=== PATIENT | female | born 1965 | race Caucasian/White ===

== ENCOUNTER 2023-09-18 08:29 | Outpatient (CLI) | payer OTHER, SELFPAY | END 2023-09-18 08:30 | disposition home or self-care (01) | LOC: ANHAUDASC 08:30 | PROVIDERS: PCP Family Medicine; Visit Provider Otolaryngology | DX: H90.3 Sensorineural hearing loss, bilateral (principal) | CPT/HCPCS: 92557; 92567 ==

== ENCOUNTER 2023-10-08 10:58 | Inpatient (IN) | payer OTHER, SELFPAY ==
[2023-10-08] VITALS (21 sets, daily range): BP systolic 129–171; BP diastolic 70–113; PULSE 90–142; RESP 14–28; TEMP 36.2–37.3; O2SAT 90–100
--- NOTE | ~2023-10-08 | XR_ITS ---
Portable chest x-ray Comparison: 10/08/2023 Clinical History: Shortness of breath Findings: There is patchy left basilar consolidation, with more hazy airspace disease at the left carol ng base. Cardiomediastinal silhouette is stable. Bones and soft tissues are unremarkable. Impression: Bibasilar airspace disease, left worse than right. Correlate for bibasilar pulmonary edema/atelectasi s versus pneumonia. Reviewed, dictated and finalized at location . Impression: Bibasilar airspace disease, left worse than right. Correlate for bibasilar pulm onary edema/atelectasis versus pneumonia.
--- NOTE | ~2023-10-08 | CT_ITS ---
EXAMINATION: CTA chest PE protocol DATE: 10/08/2023 22:30 INDICATION: Shortness of breath. Tachycardia. TECHNIQUE: Computed tomography angiography (CTA) of the chest was performed with 100 mL Omnipaque-350 intravenous contrast timed to evaluate the pulmonary arteries. Coronal maximum intensity projection 3D-reconstructions were created by the technologist. Automated exposure control and iterative reconst ruction technique were employed. The dose-length product was 882.47 mGy-cm. COMPARISON: None. FINDINGS: There are groundglass opacities and crazy paving involving all lobes. A calcified right chip g nodule is consistent with old granulomatous disease. No pleural effusion. The heart size is normal. There are coronary artery calcifications. No pericardial effusion. There is no pulmonary embolus. Th e liver demonstrates surface nodularity, consistent with cirrhosis. There are gallstones in the gallb ladder. There is severe thoracic spondylosis. There is a burst fracture of T12 with 2/5 loss of heigh t and retropulsion of bone 3 mm into central spinal canal. IMPRESSION: 1. No pulmonary embolus. Sensitivity is moderately decreased by motion artifact. 2. Diffuse lung disease, consistent with pulmonary edema versus atypical pneumonia. 3. Cirrhosis of the liver. 4. T12 burst fracture, likely subacute or chronic. Reviewed, dictated and finalized at location E. IMPRESSION: 1. No pulmonary embolus. Sensitivity is moderately decreased by motion artifact . 2. Diffuse lung disease, consistent with pulmonary edema versus atypical pneumo refugio. 3. Cirrhosis of the liver. 4. T12 burst fracture, likely subacute or chronic.
--- NOTE | ~2023-10-08 | XR_ITS ---
XR chest 2V Ordering provider: Sushma Ricardo MD History: 57 years Female with . sob . Comparison: None. FINDINGS: MEDIASTINUM: The cardiac silhouette is not enlarged. Congestive orlin. LUNGS: No effusion or pneumothorax. Bibasilar opacification is seen suggestive of pneumonia more on t he left side. Interstitial thickening is seen in the perihilar areas suggestive of edema. Pneumonitis also is possible. OTHER: No free air under the diaphragm. Degenerative changes of the spine. IMPRESSION: Bibasilar pneumonia more on the left side. Bilateral interstitial thickening suggestive of pneumoniti s versus pulmonary edema. Reviewed, dictated and finalized at location A. IMPRESSION: Bibasilar pneumonia more on the left side. Bilateral interstitial thickening moreno ggestive of pneumonitis versus pulmonary edema.
--- NOTE | ~2023-10-08 | CT_ITS ---
CT brain wo con Ordering provider: Sushma Ricardo MD History: 57 years Female with . severe CALLES, nausea/vomiting . Comparison: None. Technique: CT of the head without contrast. Radiation reduction technique utilized. DLP is 1210.67 mGy-cm. FINDINGS: BRAIN PARENCHYMA AND CSF SPACES: Mild leukoaraiosis and diffuse cortical atrophy. Mild atheromatous d isease. No midline shift, mass effect or hemorrhage. The brain parenchyma and CSF spaces are otherwi se normal. VISUALIZED PARANASAL SINUSES: Well aerated. MASTOIDS: Well aerated. BONES: The bones appear intact. SOFT TISSUES: Visualized nasopharynx is normal. Superficial soft tissues are normal. IMPRESSION: No acute intracranial findings. Reviewed, dictated and finalized at location A.
--- NOTE | 2023-10-08 12:25 | ECG_ITS ---
Test Date: 2023-10-08 12:35:55 Measurements Intervals [place] Rate: 122 P: 0 TN: 0 QRS: -81 QRSD: 81 T: 55 QT: 305 QTc: 435 Interpretive Statements SINUS TACHYCARDIA LOW QRS VOLTAGE IN PRECORDIAL LEADS POSSIBLE RIGHT VENTRICULAR CONDUCTION DELAY INFERIOR MYOCARDIAL INFARCTION , PROBABLY OLD ANTEROLATERAL MYOCARDIAL INFARCTION , PROBABLY OLD ABNORMAL ECG No previous ECG available for comparison Electronically Signed On 10-08-2023 12:59:01 CDT by Gerber Frey D.O.
--- NOTE | 2023-10-08 12:42 | ED.SOB ---
HPI - SOB/Dyspnea General Chief Complaint: Shortness of Breath/Dyspnea Stated Complaint: sob Time Seen by Provider: 10/08/23 12:25 History of Present Illness HPI Narrative: Patient is a 57-year-old female with a history of COPD, diabetes, hypertension, hyperlipidemia, hypothyroidism presenting with shortness of breath. Patient states that she has been increasingly short of breath over the last few days. States that she has been using her inhaler with minimal relief. States that today she has been feeling like she just can not catch her breath. Denies chest pain but states that her chest feels tight. Also complains of a severe headache for the last several days. States that it has been gradually worsening. States she has a history of headaches and migraines. Also complains of a sore throat. No difficulty swallowing. No fevers, numbness or weakness, vision changes, speech changes, abdominal pain, leg swelling. Complains of nausea with vomiting. Related Data Home Medications Medication Instructions Recorded Confirmed acetaminophen 325 mg tablet 325 mg PO DAILY 10/08/23 10/08/23 albuterol sulfate 2.5 mg/3 mL 2.5 mg inhalation TID PRN sob 10/08/23 10/08/23 (0.083 %) solution for nebulization albuterol sulfate 90 mcg/actuation 2 puff inhalation Q4H PRN sob 10/08/23 10/08/23 aerosol inhaler atorvastatin 40 mg tablet 40 mg PO DAILY 10/08/23 10/08/23 baclofen 10 mg tablet 10 mg PO BID 10/08/23 10/08/23 bupropion HCl 150 mg tablet,12 hr 150 mg PO DAILY 10/08/23 10/08/23 sustained-release buspirone 7.5 mg tablet 7.5 mg PO BID 10/08/23 10/08/23 capsaicin 0.075 % topical cream 1 applic topical TID 10/08/23 10/08/23 (Arthritis Pain Relief (capsaicin)) celecoxib 200 mg capsule 200 mg PO BID PRN Pain 10/08/23 10/08/23 cetirizine 10 mg tablet (Allergy 10 mg PO DAILY 10/08/23 10/08/23 Relief (cetirizine)) ergocalciferol (vitamin D2) 1,250 1,250 mcg PO DAILY 10/08/23 10/08/23 mcg (50,000 unit) capsule (Vitamin D2) famotidine 20 mg tablet 20 mg PO DAILY 10/08/23 10/08/23 fluticasone 250 mcg-salmeterol 50 1 inh inhalation BID 10/08/23 10/08/23 mcg/dose blistr powdr for inhalation (Advair Diskus) fluticasone propionate 50 50 mcg intranasal DAILY 10/08/23 10/08/23 mcg/actuation nasal spray,suspension folic acid 1 mg tablet 1 mg PO DAILY 10/08/23 10/08/23 hydralazine 10 mg tablet 10 mg PO BID 10/08/23 10/08/23 levothyroxine 100 mcg tablet 100 mcg PO DAILY 10/08/23 10/08/23 lisinopril 20 mg tablet 20 mg PO HS 10/08/23 10/08/23 meclizine 25 mg tablet 25 mg PO TID 10/08/23 10/08/23 metformin 500 mg tablet 500 mg PO DAILY 10/08/23 10/08/23 montelukast 10 mg tablet 10 mg PO DAILY 10/08/23 10/08/23 ondansetron 4 mg disintegrating 4 mg PO Q6H PRN Nausea 10/08/23 10/08/23 tablet pantoprazole 40 mg tablet,delayed 40 mg PO DAILY 10/08/23 10/08/23 release paroxetine HCl 40 mg tablet 40 mg PO DAILY 10/08/23 10/08/23 rifaximin 550 mg tablet (Xifaxan) 550 mg PO Q12H 10/08/23 10/08/23 spironolactone 25 mg tablet 50 mg PO DAILY 10/08/23 10/08/23 sucralfate 1 gram tablet 1 g PO BID 10/08/23 10/08/23 tamsulosin 0.4 mg capsule 0.4 mg PO HS 10/08/23 10/08/23 tiotropium bromide 18 mcg capsule 1 cap inhalation DAILY 10/08/23 10/08/23 with inhalation device (Spiriva with HandiHaler) triamcinolone acetonide 0.5 % 1 applic topical BID PRN Rash 10/08/23 10/08/23 topical cream Allergies Allergy/AdvReac Type Severity Reaction Status Date / Time Sulfa (Sulfonamide AdvReac Mild NAUSEA AND Verified 10/08/23 17:55 Antibiotics) VOMITING Review of Systems Review of Systems: All systems reviewed & are unremarkable except as noted in HPI and below PMFSH Past Medical History Medical History Allergies COPD (chronic obstructive pulmonary disease) Current smoker Diabetes GERD (gastroesophageal reflux disease) Hypothyroidism Social History Social History Smoking packs per day: 1 Smoking cigarettes per day: 20.0 Years smoked: 47 Smoking pack-years: 47.00 Smoking status: Current every day smoker Tobacco type: cigarettes and e-cigarettes/vaping Alcohol intake: former Substance use: former Substance use type: marijuana and crack/cocaine Other substance usage details: 2010 was last use of alcohol (previous 30pk per day), last drug use 2010 Do You Feel Safe in your Home?: Yes Lack of Transportation: YES Lack of Food: Never True Current Housing: I Have Housing Concerned About Future Housing: No Difficulty Paying Gas/Electric Bills: No Difficulty Paying for Meds: No Currently Unemployed: No Education: Don't Know Difficulty w/ Childcare or Family Care: No Spiritual care concerns: No Exam Narrative: GENERAL: Uncomfortable appearing, intermittently dry heaving, pleasant and cooperative HEAD: Normocephalic, atraumatic. EYES: PERRLA and EOMI. ENT: Mucous membranes moist. NECK: Supple. CHEST: Diffuse expiratory wheezing, on 4 L nasal cannula HEART: Regular rate and rhythm ABDOMEN: Soft, nontender, nondistended EXTREMITIES: Normal range of motion. No edema. SKIN: Warm, dry, no rash. NEURO: No focal deficits. Alert and oriented x3. PSYCH: Normal mood and affect. Course Vital Signs Vital signs: Vital Signs Temperature 97.1 F L 10/08/23 11:04 Pulse Rate 90 10/08/23 11:04 Respiratory Rate 22 H 10/08/23 11:04 Blood Pressure 153/77 H 10/08/23 11:04 Pulse Oximetry 92 10/08/23 11:04 Oxygen Delivery Nasal Cannula 10/08/23 11:04 Oxygen Flow Rate 4 10/08/23 11:04 Temperature 98.6 F 10/08/23 20:53 Pulse Rate 113 H 10/08/23 20:53 Respiratory Rate 20 10/08/23 20:53 Blood Pressure 141/86 H 10/08/23 20:53 Pulse Oximetry 94 10/08/23 20:53 Oxygen Delivery Autopap 10/08/23 21:12 Oxygen Flow Rate 4 10/08/23 20:04 Fraction of Inspired Oxygen 36 10/08/23 14:36 MDM - SOB/Dyspnea MDM Narrative Medical decision making narrative: 57-year-old female presenting with shortness of breath, nausea, headache. Patient is hypoxic on room air, she was placed on 4 L nasal cannula with improvements to the mid 90s. She is wheezing diffusely. White count of 20. Ceftriaxone, azithromycin ordered for presumed pneumonia. Solu-Medrol, breathing treatments ordered as well. EKG per my interpretation shows sinus tachycardia, no ST elevations or depressions. Head CT without acute abnormalities. Migraine cocktail ordered for her headache. Chest x-ray with bibasilar pneumonia. Patient would benefit from admission for IV antibiotics, oxygen supplementation, further management. She is agreeable with this plan. I spoke with the hospitalist was accepted her for admission Differential Diagnosis Differential diagnosis: Likely acute exacerbation of chronic obstructive airways disease, congestive heart failure and community acquired pneumonia Medical Records Attestation: I reviewed the patient's medical records. Lab Data Attestation: I reviewed the patient's lab results. 10/08/23 12:40 10/08/23 12:40 Labs: Lab Results 10/08/23 10/08/23 10/08/23 Range/Units 12:40 12:42 13:50 WBC 20.2 H (4.5-10.0) K/mm3 RBC 4.46 (4.2-5.4) M/mm3 Hgb 13.7 (12.0-15.0) g/dL Hct 39.9 (37.0-47.0) % MCV 89.5 (80-100) fl MCH 30.7 (26-34) pg MCHC 34.3 (32-36) g/dl RDW 12.5 (11.5-14.5) % Plt Count 226 (150-375) k/mm3 MPV 11.4 H (7.4-10.4) fl Immature Gran % (Auto) 0.7 H (0-0.5) % Neut % (Auto) 89.8 H (45.5-73.1) % Lymph % (Auto) 3.9 L (18.3-44.2) % [place] % (Auto) 4.3 (2.6-8.5) % Eos % (Auto) 1.0 (0-4.4) % Baso % (Auto) 0.3 (0.2-1.2) % Lymph # (Auto) 0.79 L (0.9-3.2) K/mm3 [place] # (Auto) 0.9 H (0.1-0.6) K/mm3 Eos # (Auto) 0.2 (0-0.3) K/mm3 Baso # (Auto) 0.1 (0.0-0.1) K/mm3 Abs Immat Gran (auto) 0.14 H (0.00-0.031) K/mm3 Absolute Neuts (auto) 18.2 H (1.3-6.7) K/mm3 Absolute Nucleated RBC 0.000 (0.0-0.012) K/mm3 Nucleated RBC % 0.0 (0.0-0.2) % PT 15.3 H (11.1-14.7) Seconds INR 1.2 APTT 36.0 (22.3-36.8) Seconds Methemoglobin (0-1.5) %THb Sodium 126 L (137-145) mmol/L Potassium 4.8 (3.4-5.0) mmol/L Chloride 93 L (98-107) mmol/L Carbon Dioxide 22 (22-30) mmol/L Anion Gap 11 (4-12) mmol/L BUN 8 (7-17) mg/dL Creatinine 0.90 (0.7-1.0) mg/dL Estim Creat Clear Calc 59 ml/min Estimated GFR > 60 (59 - ) Glucose 103 (65-110) mg/dL Calcium 8.9 (8.4-10.2) mg/dL Magnesium 1.5 L (1.6-2.3) mg/dL Total Bilirubin 1.3 (0.2-1.3) mg/dL AST 39 H (14-36) U/L ALT 21 (6-35) U/L Alkaline Phosphatase 238 H (38-126) U/L Troponin I < 0.012 (0.000-0.034) ng/mL NT-Pro-B Natriuret Pep 113 H (19.9-100) pg/mL Total Protein 8.0 (6.3-8.2) g/dL Albumin 4.5 (3.5-5.1) g/dL Lipase 79 (23-300) U/L Urine Color Yellow (Yellow) Urine Appearance Clear (Clear) Urine pH 6.5 (5.0-9.0) Ur Specific [place] 1.004 (1.001-1.035) Urine Protein Negative (Negative) mg/dL Urine Glucose (UA) Negative (Negative) mg/dL Urine Ketones Negative (Negative) mg/dL Ur Blood (Man) Negative (Negative) Urine Nitrate Negative (Negative) Urine Bilirubin Negative (Negative) Urine Urobilinogen 1.0 (<2.0) mg/dL Leukocyte Esterase Rfl Trace H (Negative) LUIS M/UL Urine RBC 0-2 (0-2) /hpf Urine WBC 0-5 (0-3) /hpf Ur Squamous Epith Cells None seen (Few) /hpf Urine Bacteria None seen /hpf Urine Casts 0-2 Influenza A (RT-PCR) Negative (Negative) Influenza B (RT-PCR) Negative (Negative) RSV (RT-PCR) Negative (Negative) SARS-CoV-2 RNA (RT-PCR) Negative (Negative) 10/08/23 10/08/23 Range/Units 14:30 14:51 WBC (4.5-10.0) K/mm3 RBC (4.2-5.4) M/mm3 Hgb (12.0-15.0) g/dL Hct (37.0-47.0) % MCV (80-100) fl MCH (26-34) pg MCHC (32-36) g/dl RDW (11.5-14.5) % Plt Count (150-375) k/mm3 MPV (7.4-10.4) fl Immature Gran % (Auto) (0-0.5) % Neut % (Auto) (45.5-73.1) % Lymph % (Auto) (18.3-44.2) % [place] % (Auto) (2.6-8.5) % Eos % (Auto) (0-4.4) % Baso % (Auto) (0.2-1.2) % Lymph # (Auto) (0.9-3.2) K/mm3 [place] # (Auto) (0.1-0.6) K/mm3 Eos # (Auto) (0-0.3) K/mm3 Baso # (Auto) (0.0-0.1) K/mm3 Abs Immat Gran (auto) (0.00-0.031) K/mm3 Absolute Neuts (auto) (1.3-6.7) K/mm3 Absolute Nucleated RBC (0.0-0.012) K/mm3 Nucleated RBC % (0.0-0.2) % PT (11.1-14.7) Seconds INR APTT (22.3-36.8) Seconds Methemoglobin 0.2 (0-1.5) %THb Sodium (137-145) mmol/L Potassium (3.4-5.0) mmol/L Chloride (98-107) mmol/L Carbon Dioxide (22-30) mmol/L Anion Gap (4-12) mmol/L BUN (7-17) mg/dL Creatinine (0.7-1.0) mg/dL Estim Creat Clear Calc ml/min Estimated GFR (59 - ) Glucose (65-110) mg/dL Calcium (8.4-10.2) mg/dL Magnesium (1.6-2.3) mg/dL Total Bilirubin (0.2-1.3) mg/dL AST (14-36) U/L ALT (6-35) U/L Alkaline Phosphatase (38-126) U/L Troponin I < 0.012 (0.000-0.034) ng/mL NT-Pro-B Natriuret Pep (19.9-100) pg/mL Total Protein (6.3-8.2) g/dL Albumin (3.5-5.1) g/dL Lipase (23-300) U/L Urine Color (Yellow) Urine Appearance (Clear) Urine pH (5.0-9.0) Ur Specific [place] (1.001-1.035) Urine Protein (Negative) mg/dL Urine Glucose (UA) (Negative) mg/dL Urine Ketones (Negative) mg/dL Ur Blood (Man) (Negative) Urine Nitrate (Negative) Urine Bilirubin (Negative) Urine Urobilinogen (<2.0) mg/dL Leukocyte Esterase Rfl (Negative) LUIS M/UL Urine RBC (0-2) /hpf Urine WBC (0-3) /hpf Ur Squamous Epith Cells (Few) /hpf Urine Bacteria /hpf Urine Casts Influenza A (RT-PCR) (Negative) Influenza B (RT-PCR) (Negative) RSV (RT-PCR) (Negative) SARS-CoV-2 RNA (RT-PCR) (Negative) ABG Data ABG results: 10/08/23 14:51 Puncture Site Left radial ABG pH 7.412 ABG pCO2 33.2 L ABG pO2 80.9 ABG PO2/FiO2 Ratio 1.39 ABG HCO3 20.7 L ABG O2 Saturation 96.2 ABG O2 Content 18.5 ABG Base Excess -3.1 A-a Gradient 296.0 Oxyhemoglobin 94.6 Carboxyhemoglobin 1.5 Reduced Hemoglobin 3.7 Total Hemoglobin 13.9 O2 Delivery Device Other device O2 Liters/Min 8.0 FiO2 58 Imaging Data Radiologist's impression: ITS Impressions Head CT 10/08/23 14:08 IMPRESSION: No acute intracranial findings. Chest X-Ray 10/08/23 14:14 IMPRESSION: Bibasilar pneumonia more on the left side. Bilateral interstitial thickening suggestive of pneumonitis versus pulmonary edema. Critical Care Time Critical Care Time Critical Care Time: Yes Total Critical Care Time: 35 Discharge Plan Discharge Clinical Impression: Bilateral pneumonia, COPD (chronic obstructive pulmonary disease), Migraine Patient Disposition: Still a Patient Condition: Serious
[2023-10-08] MEDS: ALBUTEROL SULFATE NEB 2.5 MG/3 ML INH 10 MG INHALATION (12:43)
[2023-10-08] MEDS: IPRATROPIUM BR 0.02% INH SOLN 0.5 MG/2.5 ML VIAL INHALATION ×2 (12:44→14:36)
[2023-10-08] MEDS: SODIUM CHLORIDE 0.9% IV 1,000 ML 999 ML IV CONT ×2 (12:49→15:30)
[2023-10-08] MEDS: methylPREDNISolone SOD SUCC 125 MG VIAL IV PUSH (12:50)
[2023-10-08] MEDS: PROCHLORPERAZINE EDISYLATE 10 MG/2 ML VIAL IV PUSH (12:50)
[2023-10-08] MEDS: diphenhydrAMINE HCl INJ 50 MG/ML VIAL 25 MG IV PUSH (12:50)
[2023-10-08 12:53] LABS: Basophils Absolute Auto 0.1 K/mm3 (0.0-0.1); Basophils Percent Auto 0.3 % (0.2-1.2); Eosinophils Absolute Auto 0.2 K/mm3 (0-0.3); Hematocrit 39.9 % (37.0-47.0); Hemoglobin 13.7 g/dL (12.0-15.0); Immature Granulocyte Absolute 0.14 K/mm3 (0.00-0.031); Immature Granulocyte Percent A 0.7 % (0-0.5); Lymphocytes Absolute Auto 0.79 K/mm3 (0.9-3.2); Lymphocytes Percent Auto 3.9 % (18.3-44.2); Mean Corpuscular HGB Conc 34.3 g/dl (32-36); Mean Corpuscular Hemoglobin 30.7 pg (26-34); Mean Corpuscular Volume 89.5 fl (80-100); Mean Platelet Volume 11.4 fl (7.4-10.4); Monocytes Absolute Auto 0.9 K/mm3 (0.1-0.6); Monocytes Percent Auto 4.3 % (2.6-8.5); Neutrophils Absolute Auto 18.2 K/mm3 (1.3-6.7); Neutrophils Percent Auto 89.8 % (45.5-73.1); Platelet Count Result 226 k/mm3 (150-375); Red Blood Count 4.46 M/mm3 (4.2-5.4); Red Cell Distribution Width 12.5 % (11.5-14.5); White Blood Count 20.2 K/mm3 (4.5-10.0)
[2023-10-08 13:00] LABS: Alanine Aminotransferase 21 U/L (6-35); Albumin Level 4.5 g/dL (3.5-5.1); Alkaline Phosphatase 238 U/L (38-126); Anion Gap 11 mmol/L (4-12); Aspartate Amino Transferase 39 U/L (14-36); Bilirubin,Total 1.3 mg/dL (0.2-1.3); Blood Urea Nitrogen 8 mg/dL (7-17); Calcium 8.9 mg/dL (8.4-10.2); Carbon Dioxide 22 mmol/L (22-30); Chloride 93 mmol/L (98-107); Estimated CRCL calculation 59 ml/min; Estimated Glomerular Filt Rate > 60; Glucose 103 mg/dL (65-110); Potassium 4.8 mmol/L (3.4-5.0); Sodium 126 mmol/L (137-145)
[2023-10-08 13:02] LABS: Lipase 79 U/L (23-300); Magnesium 1.5 mg/dL (1.6-2.3)
[2023-10-08 13:15] LABS: INR 1.2; NT Pro B Type Natriuretic Pept 113 pg/mL (19.9-100); Prothrombin Time 15.3 Seconds (11.1-14.7); Troponin I < 0.012 ng/mL (0.000-0.034)
--- NOTE | 2023-10-08 13:23 | PC.NURSE ---
Pt appears very restless, messing with monitor leads and O2 mask. Rn at bedside reminding pt to leave breathing treatment mask on and adjusting cords for pt.
[2023-10-08 13:27] LABS: Influenza A QL RT-PCR Negative (Negative); Influenza B QL RT-PCR Negative (Negative); RSV RNA, RT-PCR Negative (Negative); SARS-CoV-2 RNA PCR Negative (Negative)
[2023-10-08 14:03] LABS: Appearance Urine Clear (Clear); Bacteria Urine None Seen /hpf; Bilirubin Urine Negative (Negative); Blood Urine Negative (Negative); Color Urine Yellow (Yellow); Glucose Urine UA Negative (Negative); Ketones Urine Negative (Negative); Leukocyte Esterase Ur Trace LEU/UL (Negative); Nitrate Urine Negative (Negative); Non Pathogenic Casts 0-2; Protein Urine Negative (Negative); RBC Urine 0-2 /hpf (0-2); Specific Grav Ur 1.004 (1.001-1.035); Squamous Epithelial Cell Urine None Seen /hpf (Few); WBC Urine 0-5 /hpf (0-3); pH Urine 6.5 (5.0-9.0)
--- NOTE | 2023-10-08 14:12 | ECG_ITS ---
Test Date: 2023-10-08 14:17:12 Measurements Intervals [place] Rate: 131 P: 28 OR: 137 QRS: -84 QRSD: 95 T: 44 QT: 297 QTc: 440 Interpretive Statements SINUS TACHYCARDIA LOW QRS VOLTAGE IN PRECORDIAL LEADS INCOMPLETE RIGHT BUNDLE BRANCH BLOCK INFERIOR INFARCT, AGE INDETERMINATE ANTEROLATERAL INFARCT, AGE INDETERMINATE ABNORMAL ECG Compared to ECG 10/08/2023 12:35:55 HEART RATE HAS INCREASED Electronically Signed On 10-09-2023 14:48:40 CDT by Gerber Frey D.O.
[2023-10-08 14:15] LABS: Add Urine Microscopic? YES
[2023-10-08] MEDS: LEVALBUTEROL NEB 1.25 MG/3 ML 5 MG INHALATION (14:37)
[2023-10-08 14:53] LABS: Base Excess ABG -3.1 mEq/l (+/-2.0); Carboxyhemoglobin 1.5 % THb (0-2.0); Fractional Inspired Oxygen 58 %; HCO3 ABG 20.7 mEq/l (22.0-26.0); Methemoglobin ABG 0.2 %THb (0-1.5); Oxygen Content ABG 18.5 %vol (16.0-22.0); Oxygen Saturation ABG 96.2 % (95.0-100.0); Oxyhemoglobin 94.6 % THb (90.0-100.0); PCO2 ABG 33.2 mmHg (35.0-45.0); PO2 ABG 80.9 mmHg (80.0-100.0); PO2 FiO2 Ratio Arterial Blood 1.39 %; Reduced Hemoglobin 3.7 %THb (0-5.0); Total Hemoglobin 13.9 g/dL (12.0-18.0); pH ABG 7.412 (7.350-7.450)
[2023-10-08 14:54] LABS: Modified Allen's Test Pass; Site Drawn LEFT RADIAL
[2023-10-08 14:55] LABS: Device OTHER DEVICE
[2023-10-08 14:59] LABS: Troponin I < 0.012 ng/mL (0.000-0.034)
--- NOTE | 2023-10-08 15:08 | P.HP_ITS ---
H&P: HPI History of Present Illness Date/Time: 10/08/23 15:08 Chief Complaint: SOB Narrative: 57-year-old female presents here with shortness of breath with PMH of COPD, allergies, GERD, diabetes, anxiety/depression, MINAL, and migraines. Patient presents here via EMS from home for further evaluation of shortness of breath. HPI obtained through chart review and patient's children's report. Patient first started experiencing the shortness of breath over the last few days. Reports minimal relief with her inhaler use. Endorsing accompanying headache, nausea, vomiting, and sore throat. She describes the headache as unilateral on the right, gradually worsening. Has history of migraines. Denying associated fevers, numbness, weakness, vision changes, changes in speech, abdominal pain, or leg swelling. Daughter called for collateral information, patient reported feeling bronchitis coming on yesterday. Patient is currently staying with her son, typically stays with her daughter but she is moving. Son reports that she has been more fatigued/sleepy over the last 3 weeks and that she believed it was due to her home medications. No recent changes or additions to her medications. Current smoker - 1.5 PPD. patient currently somnolent, awakens and follows commands with gentle physical stimuli. However immediately goes back to sleep once stimulus stops. Per ED provider, patient mildly somnolent upon arrival and more somnolent post migraine medication (Benadryl and Compazine). Initial VS at presentation: 97.1? F, HR 90, RR 22, 153/77, and 92% on 4L NC. ED workup showed: WBC 20.2, no anemia, INR 1.2, sodium 126 creatinine 0.9 and GFR >60, magnesium 1.5, troponin negative, BNP 113. Head CT showed no acute intracranial findings. CXR showed bibasilar pneumonia more on the left side. Bilateral interstitial thickening suggestive of pneumonitis versus pulmonary edema. Review of Systems Review of Systems: ROS unobtainable: Yes unobtainable due to mental status (Somnolent) [facility] Past Medical History Medical History Allergies COPD (chronic obstructive pulmonary disease) Current smoker Diabetes GERD (gastroesophageal reflux disease) Hypothyroidism Social History Social History Smoking packs per day: 1 Smoking cigarettes per day: 20.0 Years smoked: 47 Smoking pack-years: 47.00 Smoking status: Current every day smoker Tobacco type: cigarettes and e-cigarettes/vaping Alcohol intake: former Substance use: former Substance use type: marijuana and crack/cocaine Other substance usage details: 2010 was last use of alcohol (previous 30pk per day), last drug use 2010 Do You Feel Safe in your Home?: Yes Lack of Transportation: YES Lack of Food: Never True Current Housing: I Have Housing Concerned About Future Housing: No Difficulty Paying Gas/Electric Bills: No Difficulty Paying for Meds: No Currently Unemployed: No Education: Don't Know Difficulty w/ Childcare or Family Care: No Spiritual care concerns: No Meds Home Medications and Allergies Home Medications Medication Instructions Recorded Confirmed Type acetaminophen 325 mg tablet 325 mg PO DAILY 10/08/23 10/08/23 History albuterol sulfate 2.5 mg/3 mL 2.5 mg inhalation TID PRN sob 10/08/23 10/08/23 History (0.083 %) solution for nebulization albuterol sulfate 90 mcg/actuation 2 puff inhalation Q4H PRN sob 10/08/23 10/08/23 History aerosol inhaler atorvastatin 40 mg tablet 40 mg PO DAILY 10/08/23 10/08/23 History baclofen 10 mg tablet 10 mg PO BID 10/08/23 10/08/23 History bupropion HCl 150 mg tablet,12 hr 150 mg PO DAILY 10/08/23 10/08/23 History sustained-release buspirone 7.5 mg tablet 7.5 mg PO BID 10/08/23 10/08/23 History capsaicin 0.075 % topical cream 1 applic topical TID 10/08/23 10/08/23 History (Arthritis Pain Relief (capsaicin)) celecoxib 200 mg capsule 200 mg PO BID PRN Pain 10/08/23 10/08/23 History cetirizine 10 mg tablet (Allergy 10 mg PO DAILY 10/08/23 10/08/23 History Relief (cetirizine)) ergocalciferol (vitamin D2) 1,250 1,250 mcg PO DAILY 10/08/23 10/08/23 History mcg (50,000 unit) capsule (Vitamin D2) famotidine 20 mg tablet 20 mg PO DAILY 10/08/23 10/08/23 History fluticasone 250 mcg-salmeterol 50 1 inh inhalation BID 10/08/23 10/08/23 History mcg/dose blistr powdr for inhalation (Advair Diskus) fluticasone propionate 50 50 mcg intranasal DAILY 10/08/23 10/08/23 History mcg/actuation nasal spray,suspension folic acid 1 mg tablet 1 mg PO DAILY 10/08/23 10/08/23 History hydralazine 10 mg tablet 10 mg PO BID 10/08/23 10/08/23 History levothyroxine 100 mcg tablet 100 mcg PO DAILY 10/08/23 10/08/23 History lisinopril 20 mg tablet 20 mg PO HS 10/08/23 10/08/23 History meclizine 25 mg tablet 25 mg PO TID 10/08/23 10/08/23 History metformin 500 mg tablet 500 mg PO DAILY 10/08/23 10/08/23 History montelukast 10 mg tablet 10 mg PO DAILY 10/08/23 10/08/23 History ondansetron 4 mg disintegrating 4 mg PO Q6H PRN Nausea 10/08/23 10/08/23 History tablet pantoprazole 40 mg tablet,delayed 40 mg PO DAILY 10/08/23 10/08/23 History release paroxetine HCl 40 mg tablet 40 mg PO DAILY 10/08/23 10/08/23 History rifaximin 550 mg tablet (Xifaxan) 550 mg PO Q12H 10/08/23 10/08/23 History spironolactone 25 mg tablet 50 mg PO DAILY 10/08/23 10/08/23 History sucralfate 1 gram tablet 1 g PO BID 10/08/23 10/08/23 History tamsulosin 0.4 mg capsule 0.4 mg PO HS 10/08/23 10/08/23 History tiotropium bromide 18 mcg capsule 1 cap inhalation DAILY 10/08/23 10/08/23 History with inhalation device (Spiriva with HandiHaler) triamcinolone acetonide 0.5 % 1 applic topical BID PRN Rash 10/08/23 10/08/23 History topical cream Allergies Allergy/AdvReac Type Severity Reaction Status Date / Time Sulfa (Sulfonamide AdvReac Mild NAUSEA AND Verified 10/08/23 17:55 Antibiotics) VOMITING Vital Signs Vital Signs - 24 hr 10/08/23 11:04 10/08/23 12:43 10/08/23 12:32 Temperature 97.1 F L Pulse Rate 90 121 H 125 H Respiratory Rate 22 H 22 H 23 H Blood Pressure 153/77 H 160/113 H Pulse Oximetry 92 92 Oxygen Delivery Nasal Cannula Oxygen Flow Rate 4 10/08/23 12:45 10/08/23 13:15 10/08/23 13:49 Temperature Pulse Rate 125 H 123 H 132 H Respiratory Rate 24 H 22 H 24 H Blood Pressure 171/88 H Pulse Oximetry 99 94 Oxygen Delivery Oxygen Flow Rate 10/08/23 14:36 Temperature Pulse Rate 136 H Respiratory Rate 25 H Blood Pressure Pulse Oximetry Oxygen Delivery Oxygen Flow Rate Exam Const: General: comfortable and no acute distress Other: , female, somnolent HENMT: Face/Nose/Sinus: Normal nares present Mouth: Yes moist mucous membranes Other: NC in place Eyes: General: appearance normal, both eyes and all related structures Sclera: sclerae normal Pupils: Equal, round and reactive pupils present EOM: EOMs intact bilaterally Other: 2 mm and reactive Resp: Effort & Inspection: normal respiratory effort Other: Expiratory wheeze, diminished at bases Cardio: Rate: regular rate Rhythm: regular rhythm Other: S1-S2 present without murmur, rub, ectopy Skin: General skin exam: normal color and no rashes or lesions noted Wounds: no wounds Neuro: Other: Very somnolent, awakens to gentle repeated physical stimuli. Difficult time sustaining wakefulness. Will follow commands and attempts to answer questions while awake. Moving all extremities. Extrem: General: normal to inspection Psych: Other: Fair to poor insight and judgment are present. H&P: Results Labs Labs: Short CBC 10/08/23 Range/Units 12:40 WBC 20.2 H (4.5-10.0) K/mm3 Hgb 13.7 (12.0-15.0) g/dL Hct 39.9 (37.0-47.0) % Plt Count 226 (150-375) k/mm3 BMP 10/08/23 12:40 Sodium 126 L Potassium 4.8 Chloride 93 L Carbon Dioxide 22 BUN 8 Creatinine 0.90 Glucose 103 Calcium 8.9 Cardiac Enzymes 10/08/23 10/08/23 Range/Units 12:42 14:30 Troponin I < 0.012 < 0.012 (0.000-0.034) ng/mL Liver Function 10/08/23 Range/Units 12:40 Total Bilirubin 1.3 (0.2-1.3) mg/dL AST 39 H (14-36) U/L ALT 21 (6-35) U/L Alkaline Phosphatase 238 H (38-126) U/L Albumin 4.5 (3.5-5.1) g/dL Urine 10/08/23 Range/Units 13:50 Urine Color Yellow (Yellow) Urine Appearance Clear (Clear) Urine pH 6.5 (5.0-9.0) Ur Specific [place] 1.004 (1.001-1.035) Urine Protein Negative (Negative) mg/dL Urine Glucose (UA) Negative (Negative) mg/dL Assessment and Plan Assessment and plan (1) Pneumonia: Qualifiers: Laterality: bilateral Lung location: unspecified part of lung Pneumonia type: due to unspecified organism Qualified Code(s): J18.9 - Pneumonia, unspecified organism Code(s): J18.9 - Pneumonia, unspecified organism Status: Acute Assessment and Plan: - CXR: Bibasilar pneumonia more on the left side. Bilateral interstitial thi ckening suggestive of pneumonitis versus pulmonary edema. - risk factors: None - complicating factors: Current smoker - started on CAP tx: Ceftriaxone azithromycin on 10/07 - Viral PCR: Negative - sputum culture if obtainable - supplemental O2 requirement: 4 L NC -> 10L HFNC (2) Somnolence: Code(s): R40.0 - Somnolence Status: Acute Assessment and Plan: - reported migraine upon arrival - CT head: No acute intracranial findings - ABG, initial: CO2 33.2, HC03 20.7 - UDS negative - ammonia negative - neuro checks q.4 - reassessed at 22:00, patient improved and able to sustain wakefulness. remains somnolent. (3) COPD (chronic obstructive pulmonary disease): Qualifiers: COPD type: COPD with acute exacerbation Qualified Code(s): J44.1 - Chronic obstructive pulmonary disease with (acute) exacerbation Code(s): J44.9 - Chronic obstructive pulmonary disease, unspecified Status: Acute Assessment and Plan: - COPD with exacerbation - DuoNebs Q6H [facility] - steroids: Solu-Medrol, transition to oral prednisone x5 days - started on ceftriaxone and azithromycin on 10/07 - currently requiring supplemental O2 (4) Diabetes: Qualifiers: Diabetes mellitus complication status: without complication Diabetes mellitus residential insulin use: with emt intermediate use Diabetes mellitus type: type 2 Qualified Code(s): E11.9 - Type 2 diabetes mellitus without complications; Z79.4 - intermediate (current) use of insulin Code(s): E11.9 - Type 2 diabetes mellitus without complications Status: Chronic Assessment and Plan: - hypoglycemia protocol - POC blood glucose ACHS - home medication: Hold metformin - correct regimen ordered - low dose TIDWM, on steroids. May need to be titrated up. Plan The patient presents here with shortness of breath, nausea, vomiting, fatigue, headache. Imaging showed pneumonia. Head CT negative. Currently somnolent, suspected to be due to migraine medications and concurrent pneumonia. Neuro checks q.4 hour, improved this evening. However supplemental O2 requirement increasing and tachycardic. Will obtain CT PE study. Patient initially refusing home CPAP, discussed with patient, now ammendable. Daughter would like to be called if there are any changes (good or bad). Home medications reviewed and resumed as appropriate. Diet: Diabetic GI Prophylaxis: Not currently indicated DVT Prophylaxis: SCDs Lines: Peripheral Code Status: Full code Quality VTE Prophylaxis VTE prophylaxis: mechanical ordered Hospitalist MIPS Advance Care Plan I have confirmed that the patient's Advanced Care Plan is present, code status is documented, or surrogate decision maker is listed in patient medical record.: Yes Medication Reconciliation I have utilized all available resources to obtain, update and review the patients current medications (includes all prescriptions, OTC, herbals, cannabis, and nutritional supplements).: Yes
[2023-10-08] MEDS: cefTRIAXone 2 GM/NS 100 ML 2 GM/100 ML BAG IVPB (15:31)
--- NOTE | 2023-10-08 16:00 | ADMGEN ---
This patient, Analilia Montgomery, was admitted to Medical Room 343-01. Patient/family oriented to hospital policies and general routines including ID bracelet, bed and alarms, visiting hours, pain management, procedures, bathroom and other care routines, personal items, smoking policy, room service/diet, and visiting hours. Information on how to activate the Rapid Response Team has been discussed. Patient/Family are encouraged to report perceived risks to care and to ask questions if they do not understand what they are told or what they should do.
[2023-10-08] MEDS: AZITHROMYCIN 500 MG/NS 250 ML 500 MG/250 ML BAG 250 MG IVPB (16:57)
--- NOTE | 2023-10-08 17:00 | PC.NURSE ---
Patient extremely drowsy on assessment. Patient can follow commands when woken up but will fall back asleep after completing command. Provider, Merry Wade notified.
[2023-10-08 17:11] LABS: Glucose Point of Care 213 mg/dl (65-105)
[2023-10-08 17:58] LABS: Amphetamine Screen Urine Negative (Negative); Barbiturate Screen Urine Negative (Negative); Benzodiazepines Screen Urine Negative (Negative); Cannabinoid Screen Urine Negative (Negative); Cocaine Screen Urine Negative (Negative); Methadone Screen Urine Negative (Negative); Opiate Screen Urine Negative (Negative); Phencyclidine Screen Urine Negative (Negative)
[2023-10-08 18:00] LABS: Ammonia < 9 umol/L (9-30)
[2023-10-08 18:13] LABS: Troponin I < 0.012 ng/mL (0.000-0.034)
[2023-10-08 19:57] LABS: Glucose Point of Care 238 mg/dl (65-105)
[2023-10-08] MEDS: IPRATROPIUM 0.5 MG/ALBUTEROL SULFATE 2.5 MG AMPUL.NEB 3 ML INHALATION (20:04)
[2023-10-08] MEDS: lisinopriL 20 MG TABLET PO (21:40)
[2023-10-08] MEDS: TAMSULOSIN HCL 0.4 MG CAPSULE PO (21:40)
[2023-10-08] MEDS: rifAXIMin 550 MG TABLET PO (21:41)
--- NOTE | 2023-10-08 22:14 | PCRCNOTE ---
ABG delayed due to nurse taking patient to CT first.
[2023-10-08 22:48] LABS: Alveolar/Arterial O2 Gradient 608.1 mmHg; Base Excess ABG -4.9 mEq/l (+/-2.0); Fractional Inspired Oxygen 100 %; HCO3 ABG 19.6 mEq/l (22.0-26.0); Oxygen Content ABG 17.6 %vol (16.0-22.0); Oxygen Saturation ABG 93.9 % (95.0-100.0); Oxyhemoglobin 93.3 % THb (90.0-100.0); PCO2 ABG 34.6 mmHg (35.0-45.0); PO2 ABG 70.3 mmHg (80.0-100.0); Total Hemoglobin 13.4 g/dL (12.0-18.0)
[2023-10-08 22:50] LABS: Modified Allen's Test Pass; Site Drawn RIGHT RADIAL
[2023-10-08 22:51] LABS: Device HIGH FLOW NASAL CANN
--- NOTE | 2023-10-08 23:55 | PM.EVENT ---
Event Note Event Note Event Note: Rapid Response: Rapid called due to increasing O2 requirement. Initially started with 4L NC, increased over the course of the afternoon to 15 L HFNC. ABG and CTA of the chest done due to tachycardia and increasing O2 requirement prior to rapid. CT showed no PE and was concerning for atypical pneumonia versus pulmonary edema. BNP 113. Will add echo and trial 40 mg IVP of Lasix. Patient historically has not tolerated CPAP well. Attempted to utilize this evening, patient immediately took the mask off stating she could not breathe per RT. discussed BiPAP with patient, amendable in order to avoid intubation. Alerted ED provider and psychiatric social worker to patient condition. ED provider suggested nitropaste, BP currently 162/98. DC nitropaste if patient becomes hypotensive. Reviewed lab work, Mag 1.5, will give 2 g IVPB. Daughter updated with patient's permission. Transfer patient to IMU for closer monitoring and BiPAP. Critical Care Time: I personally spent 35 minutes of direct patient care including (but not limited to) the physical examination, decision-making, bedside evaluation, review of medical records, review of labs and imaging, discussion with nursing staff and other providers for collaborative, critical care management of this patient.
[2023-10-09] VITALS (30 sets, daily range): BP systolic 120–153; BP diastolic 65–82; PULSE 101–127; RESP 20–26; TEMP 36.1–36.6; O2SAT 91–100
--- NOTE | 2023-10-09 | PC.NURSE ---
This patient, Analilia Montgomery, was received from [ ] on 10/09/23 at 0055. Patient/family oriented to unit policies and routines
--- NOTE | 2023-10-09 | ECHO_ITS ---
Patient Info Name: Analilia Montgomery Age: 57 years : 1965 Gender: Female Ht: 60 in Wt: 189 lbs BSA: 1.95 m2 HR: 111 bpm BP: 134 / 68 mmHg Heart Rhythm: Tachycardia Technical Quality: Poor Exam Date: 10/09/2023 10:17 AM Exam Location: Echo Lab Patient Status: Inpatient Admit Date: 10/08/2023 Staff Ordering Physician: Merry Wade APRN Furnace Charger: Kain Cruz RDCS Attending Provider: Glenroy Colón MD Referring Physician: Mauro VALENCIA; Exam Type: CA echo doppler color flow Study Info Indications J96.01 - Acute respiratory failure with hypoxia Complete two-dimensional, color flow and Doppler transthoracic echocardiogram is performed. Reason for Poor Study: poor patient cooperation Summary 1. Complete two-dimensional, color flow and Doppler transthoracic echocardiogram is performed. 2. Left ventricular chamber dimension is normal. 3. Left ventricular systolic function is hyperdynamic, estimated at >70%. 4. There is mildly increased left ventricular wall thickness. 5. The left ventricular diastolic function is grade I diastolic dysfunction. 6. There is mild tricuspid valve regurgitation. Left Ventricle Left ventricular chamber dimension is normal. Left ventricular systolic function is hyperdynamic, estimated at >70%. There is mildly increased left ventricular wall thickness. The left ventricular diastolic function is grade I diastolic dysfunction. Right Ventricle Right ventricular chamber dimension is normal. Right ventricular systolic function is normal. Left Atria Left atrial chamber dimension is normal. Right Atria Right atrial chamber dimension is normal. Atrial Septum Intact interatrial septum visualized by color flow imaging. Aortic Valve The aortic valve is trileaflet. There is mild aortic valve sclerosis. There is no aortic valve stenosis. There is trace aortic valve regurgitation. Pulmonic Valve The pulmonic valve is normal. There is no pulmonic valve stenosis. There is trace pulmonic regurgitation. Mitral Valve The mitral valve has normal leaflets. There is no mitral valve stenosis. There is trace mitral valve regurgitation. Tricuspid Valve The tricuspid valve leaflets are normal. There is no significant tricuspid valve stenosis. There is mild tricuspid valve regurgitation. No pulmonary hypertension, estimated pulmonary arterial systolic pressure is 35 mmHg. Pericardium/Pleural The pericardium appears epicardial fat pad. There is no pericardial effusion. Inferior Vena Cava Normal inferior vena cava with <50% collapse upon inspiration consistent with normal right atrial pressure, 10 mmHg. Aorta The aortic root size at the sinus of Valsalva is normal. Left Ventricular Outflow Tract Name Value Normal LVOT 2D LVOT Diameter 2.0 cm LVOT Doppler LVOT Peak Gradient 5 mmHg LVOT Mean Gradient 2 mmHg LVOT VTI 16 cm LVOT VTI/AV VTI Ratio 0.9 LVOT Stroke Volume 50 ml LVOT CO 5.0 l/min LVOT CI 2.6 l/min/m2 Pulmonic Valve Name Value Normal RVOT Doppler RVOT Peak Gradient 4 mmHg PV Doppler PV Peak Gradient 5 mmHg PV Regurgitation Doppler NV Peak End Diastolic Velocity 138 cm/s Mitral Valve Name Value Normal MV Doppler MV Decel [place] 997 cm/s2 MV PHT 18 ms MV Area (PHT) 12.0 cm2 4.0-5.0 MV Diastolic Function MV E Peak Velocity 63 cm/s MV A Peak Velocity 121 cm/s MV E/A 0.5 MV Decel Time 63 ms Tricuspid Valve Name Value Normal TV Regurgitation Doppler TR Peak Velocity 248 cm/s TR Peak Gradient 25 mmHg Estimated PAP/RSVP RA Pressure 10 mmHg <=5 PA Systolic Pressure 35 mmHg <36 RV Systolic Pressure 35 mmHg <36 Aorta Name Value Normal Ascending Aorta Ao Root Diameter (MM) 2.2 cm Ao Root Diam Index (MM) 1.1 cm/m2 Aortic Valve Name Value Normal AV Doppler AV Peak Velocity 127 cm/s AV Peak Gradient 6 mmHg AV Mean Gradient 3 mmHg AV VTI 19 cm AV Area (Cont Eq VTI) 2.7 cm2 >=3.0 AV Area (Cont Eq Sanjay) 2.7 cm2 AV Regurgitation 2D LVOT Area 3.1 cm2 Ventricles Name Value Normal LV Dimensions 2D/MM IVS Diastolic Thickness (2D) 1.1 cm 0.6-1.0 IVS Diastole Thickness (MM) 1.0 cm 0.6-0.9 LVID Diastole (2D) 4.1 cm 3.8-5.2 LVID Diastole (MM) 4.5 cm 3.8-5.2 LVIW Diastolic Thickness (2D) 1.0 cm 0.6-0.9 LVIW Diastolic Thickness (MM) 1.0 cm 0.6-0.9 LVID Systole (2D) 2.6 cm 2.2-3.5 LVID Systole (MM) 3.2 cm 2.2-3.5 LVOT Diameter 2.0 cm LV Mass (2D Cubed) 138.20 g 67.00-162.00 LV Mass Index (2D Cubed) 71 g/m2 43-95 Relative Wall Thickness (2D) 0.47 LV Mass (MM Cubed) 150.42 g 67.00-162.00 LV Mass Index (MM Cubed) 77 g/m2 43-95 Relative Wall Thickness (MM) 0.46 LV Fractional Shortening/Ejection Fraction 2D/MM LV Fractional Shortening (2D) 38 % 27-45 LV Fractional Shortening (MM) 29 % 27-45 LV EF (MM Teicholz) 56 % 54-74 LV EF (2D Teicholz) 68 % 54-74 LV Diastolic Volume (4C MOD) 49 ml LV EF (4C MOD) 79 % LV Diastolic Volume (2C MOD) 38 ml LV EF (2C MOD) 66 % LV Diastolic Volume (BP MOD) 41 ml 46-106 LV Diastolic Volume Index (BP MOD) 21 ml/m2 29-61 LV Systolic Volume (BP MOD) 10 ml 14-42 LV Systolic Volume Index (BP MOD) 5 ml/m2 8-24 LV EF (BP MOD) 75 % 54-74 LV Diastolic Length (4C) 7.7 cm LV Systolic Length (4C) 6.3 cm LV Stroke Volume (4C MOD) 38 ml Atria Name Value Normal LA Dimensions LA Dimension (MM) 4.6 cm 2.7-3.8 LA Volume (4C A-L) 38 ml LA Volume (BP A-L) 34 ml RA Dimensions RA Area (4C) 13.9 cm2 <=18.0 Report Signatures
--- NOTE | 2023-10-09 00:08 | PC.NURSE ---
Patient SPO2 down to 80-85% on 12L hi flow oxygen. Oxygen turned up to 15L hi flow and SPO2 still 85%. Rapid response called. Merry Wade came to bedside and stated that she was on the phone with the daughter when rapid response was called. Patient transferred to room 202 and bipap was placed on patient by respiratory.
--- NOTE | 2023-10-09 00:10 | PC.NURSE ---
This patient, Analilia Montgomery, was received from [ 343] on 10/09/23 at 0056. Patient/family oriented to unit policies and routines
[2023-10-09] MEDS: MAGNESIUM SULF 2 GM/WATER 50ML 2 GM/50 ML BAG IVPB (00:33)
[2023-10-09] MEDS: FUROSEMIDE INJ 40 MG/4 ML VIAL IV PUSH (00:43)
[2023-10-09] MEDS: NITROGLYCERIN OINTMENT 1 INCH DOSE 0.5 INCH TRANSDERM (00:45)
[2023-10-09 02:03] LABS: Glucose Point of Care 209 mg/dl (65-105)
[2023-10-09] MEDS: IPRATROPIUM 0.5 MG/ALBUTEROL SULFATE 2.5 MG AMPUL.NEB 3 ML INHALATION ×4 (02:40→20:48)
[2023-10-09 02:46] LABS: Creatinine Urine 19.2 mg/dL; Total Protein Urine Random 8 mg/dL; Ur Ttl Prot Creatinine Ratio 0.42 mg/mg (0-0.20)
[2023-10-09 02:52] LABS: Sodium Urine Random 81 meq/L
[2023-10-09 03:47] LABS: MRSA (PCR) NOT DETECTED (NOT DETECTE)
[2023-10-09 03:48] LABS: Basophils Percent Auto 0.1 % (0.2-1.2); Hematocrit 39.9 % (37.0-47.0); Hemoglobin 13.7 g/dL (12.0-15.0); Immature Granulocyte Absolute 0.33 K/mm3 (0.00-0.031); Immature Granulocyte Percent A 1.5 % (0-0.5); Lymphocytes Absolute Auto 0.48 K/mm3 (0.9-3.2); Lymphocytes Percent Auto 2.2 % (18.3-44.2); Mean Corpuscular HGB Conc 34.3 g/dl (32-36); Mean Corpuscular Hemoglobin 30.5 pg (26-34); Mean Corpuscular Volume 88.9 fl (80-100); Mean Platelet Volume 11.1 fl (7.4-10.4); Monocytes Absolute Auto 0.7 K/mm3 (0.1-0.6); Monocytes Percent Auto 3.2 % (2.6-8.5); Neutrophils Absolute Auto 20.2 K/mm3 (1.3-6.7); Platelet Count Result 195 k/mm3 (150-375); Red Blood Count 4.49 M/mm3 (4.2-5.4); Red Cell Distribution Width 12.9 % (11.5-14.5); White Blood Count 21.7 K/mm3 (4.5-10.0)
[2023-10-09 04:01] LABS: Alanine Aminotransferase 18 U/L (6-35); Albumin Level 4.1 g/dL (3.5-5.1); Alkaline Phosphatase 209 U/L (38-126); Aspartate Amino Transferase 32 U/L (14-36); Bilirubin,Total 0.7 mg/dL (0.2-1.3); Blood Urea Nitrogen 12 mg/dL (7-17); Calcium 9.2 mg/dL (8.4-10.2); Carbon Dioxide 23 mmol/L (22-30); Chloride 99 mmol/L (98-107); Estimated CRCL calculation 53 ml/min; Estimated Glomerular Filt Rate 57; Glucose 195 mg/dL (65-110)
[2023-10-09 04:15] LABS: Anion Gap 9 mmol/L (4-12); Potassium 4.9 mmol/L (3.4-5.0); Sodium 131 mmol/L (137-145)
[2023-10-09] MEDS: LEVOTHYROXINE SODIUM 100 MCG TABLET PO (05:43)
[2023-10-09] MEDS: TRIAMCINOLONE ACET 0.5% CREAM 15 GM TUBE 1 EACH XX (05:47)
[2023-10-09] MEDS: UMECLIDINIUM BROMIDE 62.5 MCG ELLIPTA 1 PUFF INHALATION (07:00)
[2023-10-09] MEDS: FLUTICASONE/SALMETEROL 115-21 MCG INHALER 1 PUFF 2 PUFF INHALATION ×2 (07:00→21:01)
[2023-10-09 08:20] LABS: Glucose Point of Care 191 mg/dl (65-105)
[2023-10-09] MEDS: ATORVASTATIN 40 MG TABLET PO (08:48)
[2023-10-09] MEDS: BACLOFEN 10 MG TABLET PO ×2 (08:48→17:51)
[2023-10-09] MEDS: buPROPion HCL SR (12 HR) 150 MG TAB PO (08:48)
[2023-10-09] MEDS: predniSONE 20 MG TABLET 40 MG PO (08:48)
[2023-10-09] MEDS: FAMOTIDINE 20 MG TABLET PO (08:49)
[2023-10-09] MEDS: busPIRone HCL 5 MG TABLET PO ×2 (08:49→17:51)
[2023-10-09] MEDS: busPIRone HCL 2.5 MG TABLET PO ×2 (08:49→17:51)
[2023-10-09] MEDS: hydrALAZINE 10 MG TABLET PO ×2 (08:50→17:51)
[2023-10-09] MEDS: PARoxetine 20 MG TABLET 40 MG PO (08:50)
[2023-10-09] MEDS: LORATADINE 10 MG TABLET PO (08:50)
[2023-10-09] MEDS: PANTOPRAZOLE 40 MG TABLET PO (08:50)
[2023-10-09] MEDS: FOLIC ACID 1 MG TABLET PO (08:50)
[2023-10-09] MEDS: MECLIZINE HCL 25 MG TABLET PO ×2 (08:50→17:51)
[2023-10-09] MEDS: MONTELUKAST SODIUM 10 MG TABLET PO (08:50)
[2023-10-09] MEDS: SPIRONOLACTONE 25 MG TABLET 50 MG PO (08:51)
[2023-10-09] MEDS: rifAXIMin 550 MG TABLET PO ×2 (08:51→20:27)
[2023-10-09] MEDS: SUCRALFATE 1 GM TABLET PO ×2 (08:51→17:52)
--- NOTE | 2023-10-09 10:21 | P.PNIM_ITS ---
Progress Note: A&P Assessment and Plan (1) Bilateral pneumonia: Code(s): J18.9 - Pneumonia, unspecified organism Status: Acute (2) COPD (chronic obstructive pulmonary disease): Code(s): J44.9 - Chronic obstructive pulmonary disease, unspecified Status: Acute (3) Somnolence: Code(s): R40.0 - Somnolence Status: Acute (4) Diabetes: Qualifiers: Diabetes mellitus complication status: without complication Diabetes mellitus terminal gauger insulin use: with terminal gauger use Diabetes mellitus type: type 2 Qualified Code(s): E11.9 - Type 2 diabetes mellitus without complications; Z79.4 - FDC (current) use of insulin Code(s): E11.9 - Type 2 diabetes mellitus without complications Status: Chronic (5) COPD (chronic obstructive pulmonary disease): Qualifiers: COPD type: COPD with acute exacerbation Qualified Code(s): J44.1 - Chronic obstructive pulmonary disease with (acute) exacerbation Code(s): J44.9 - Chronic obstructive pulmonary disease, unspecified Status: Acute Plan Acute hypoxemic respiratory failure, multifocal pneumonia Qualifiers: Laterality: bilateral Lung location: unspecified part of lung Pneumonia type: due to unspecified organism Qualified Code(s): J18.9 - Pneumonia, unspecified organism Code(s): J18.9 - Pneumonia, unspecified organism Status: Acute Assessment and Plan: - CXR: Bibasilar pneumonia more on the left side. Bilateral interstitial thickening suggestive of pneumonitis versus pulmonary edema. - risk factors: None - complicating factors: Current smoker - started on CAP tx: Ceftriaxone azithromycin on 10/07 - Viral PCR: Negative - sputum culture if obtainable Patient is on high-flow oxygen 11 L Continue DuoNeb and albuterol nebulizer Consult copy editor for evaluation treatment (2) Somnolence: Code(s): R40.0 - Somnolence Status: Acute Assessment and Plan: - reported migraine upon arrival - CT head: No acute intracranial findings - ABG, initial: CO2 33.2, HC03 20.7 - UDS negative - ammonia negative - neuro checks q.4 - reassessed at 22:00, patient improved and able to sustain wakefulness. remains somnolent. (3) COPD (chronic obstructive pulmonary disease): Qualifiers: COPD type: COPD with acute exacerbation Qualified Code(s): J44.1 - Chronic obstructive pulmonary disease with (acute) exacerbation Code(s): J44.9 - Chronic obstructive pulmonary disease, unspecified Status: Acute Assessment and Plan: - COPD with exacerbation, due to pneumonia - DuoNebs Q6H po - steroids: Solu-Medrol, transition to oral prednisone x5 days - started on ceftriaxone and azithromycin on 10/07 - currently requiring supplemental O2 (4) Diabetes: Qualifiers: Diabetes mellitus complication status: without complication Diabetes mellitus terminal gauger insulin use: with alf use Diabetes mellitus type: type 2 Qualified Code(s): E11.9 - Type 2 diabetes mellitus without complications; Z79.4 - technician terminal and repeater (current) use of insulin Code(s): E11.9 - Type 2 diabetes mellitus without complications Status: Chronic Assessment and Plan: - hypoglycemia protocol - POC blood glucose ACHS - home medication: Hold metformin - correct regimen ordered - low dose TIDWM, on steroids. May need to be titrated up. Subjective Date/time seen: 10/09/23 10:21 Interval history: I saw and examined the patient today, patient still has productive cough with large amount white yellow phlegm, patient has shortness of breath and rest, patient needed high-flow oxygen. Patient is afebrile, blood pressure stable Exam Narrative: GENERAL: Ill-appearing in no acute distress. Well-nourished. - EYES: EOMI. Anicteric. - HENT: Moist mucous membranes. - LUNGS: Rhonchi bilateral, tachypnea, labored breathing - CARDIOVASCULAR: Regular rate and rhyth m. No murmur. No JVD. - ABDOMEN: Soft, non-tender and non-dist ended. No palpable masses. - EXTREMITIES: No edema. Peripheral puls es 2+. Non-tender. - NEUROLOGIC: No focal neurological defi cits. CN II-XII grossly intact. - PSYCHIATRIC: Awake, Alert and oriented x 3. Appropriate mood and affect. - SKIN: No rashes or lesions. Warm. - LYMPH: No cervical lymphadenopathy. Objective Data Vital Signs Vital Signs: Vital Signs - 24 hr 10/08/23 11:04 10/08/23 12:43 10/08/23 12:32 Temperature 97.1 F L Pulse Rate 90 121 H 125 H Respiratory Rate 22 H 22 H 23 H Blood Pressure 153/77 H 160/113 H Pulse Oximetry 92 92 Oxygen Delivery Nasal Cannula Oxygen Flow Rate 4 Fraction of Inspired Oxygen 10/08/23 12:45 10/08/23 13:15 10/08/23 13:49 Temperature Pulse Rate 125 H 123 H 132 H Respiratory Rate 24 H 22 H 24 H Blood Pressure 171/88 H Pulse Oximetry 99 94 Oxygen Delivery Oxygen Flow Rate Fraction of Inspired Oxygen 10/08/23 14:36 10/08/23 15:28 10/08/23 13:14 Temperature Pulse Rate 136 H 141 H 123 H Respiratory Rate 25 H 25 H 23 H Blood Pressure 171/88 H Pulse Oximetry 100 Oxygen Delivery Oxygen Flow Rate Fraction of Inspired Oxygen 10/08/23 13:45 10/08/23 15:24 10/08/23 15:30 Temperature Pulse Rate 134 H 142 H 140 H Respiratory Rate 23 H 28 H 24 H Blood Pressure 129/85 134/73 Pulse Oximetry 94 97 92 Oxygen Delivery Oxygen Flow Rate Fraction of Inspired Oxygen 10/08/23 14:36 10/08/23 16:00 10/08/23 18:26 Temperature Pulse Rate 136 H Respiratory Rate Blood Pressure Pulse Oximetry 93 92 Oxygen Delivery Nasal Cannula Nasal Cannula Oxygen Flow Rate 4 4 Fraction of Inspired Oxygen 36 10/08/23 20:04 10/08/23 20:04 10/08/23 20:14 Temperature Pulse Rate 115 H 115 H 117 H Respiratory Rate 20 20 Blood Pressure Pulse Oximetry 93 Oxygen Delivery Nasal Cannula Oxygen Flow Rate 4 Fraction of Inspired Oxygen 10/08/23 20:00 10/08/23 20:00 10/08/23 20:53 Temperature 98.6 F Pulse Rate 113 H 113 H Respiratory Rate 20 Blood Pressure 141/86 H Pulse Oximetry 90 94 Oxygen Delivery High Flow Therapy with Na Oxygen Flow Rate 10 Fraction of Inspired Oxygen 10/08/23 21:12 10/08/23 21:37 10/08/23 23:46 Temperature 99.1 F 98.8 F Pulse Rate 119 H 118 H Respiratory Rate 24 H 14 Blood Pressure 136/70 162/98 H Pulse Oximetry 91 95 Oxygen Delivery Autopap Oxygen Flow Rate Fraction of Inspired Oxygen 10/09/23 00:09 10/08/23 23:42 10/09/23 00:00 Temperature Pulse Rate 120 H 118 H Respiratory Rate 26 H 20 Blood Pressure 162/98 H Pulse Oximetry 97 95 Oxygen Delivery BiPAP High Flow Therapy with Na Oxygen Flow Rate 15 Fraction of Inspired Oxygen 10/09/23 00:00 10/09/23 02:15 10/09/23 02:40 Temperature Pulse Rate 120 H Respiratory Rate 24 H Blood Pressure Pulse Oximetry 97 93 Oxygen Delivery BiPAP High Flow Nasal Cannula Oxygen Flow Rate 15 Fraction of Inspired Oxygen 10/09/23 03:24 10/09/23 02:50 10/09/23 02:00 Temperature Pulse Rate 120 H 121 H 127 H Respiratory Rate 22 H 22 H Blood Pressure Pulse Oximetry 92 Oxygen Delivery High Flow Nasal Cannula Oxygen Flow Rate 15 Fraction of Inspired Oxygen 10/09/23 04:43 10/09/23 04:00 10/09/23 04:00 Temperature 97.8 F Pulse Rate 111 H 111 H Respiratory Rate 20 Blood Pressure 134/68 Pulse Oximetry 96 98 Oxygen Delivery High Flow Nasal Cannula Oxygen Flow Rate 13 Fraction of Inspired Oxygen 10/09/23 06:00 10/09/23 07:00 10/09/23 07:00 Temperature Pulse Rate 114 H 115 H 115 H Respiratory Rate 20 20 Blood Pressure Pulse Oximetry 95 Oxygen Delivery High Flow Nasal Cannula Oxygen Flow Rate 11 Fraction of Inspired Oxygen 10/09/23 07:10 10/09/23 07:38 10/09/23 08:00 Temperature 97.2 F L Pulse Rate 118 H 116 H 115 H Respiratory Rate 20 22 H Blood Pressure 130/68 Pulse Oximetry 91 Oxygen Delivery Oxygen Flow Rate Fraction of Inspired Oxygen 10/09/23 08:00 10/09/23 10:00 Temperature Pulse Rate 110 H Respiratory Rate Blood Pressure Pulse Oximetry 91 Oxygen Delivery High Flow Nasal Cannula Oxygen Flow Rate 11 Fraction of Inspired Oxygen Intake/Output Intake/Output: Intake & Output 10/06/23 10/07/23 10/08/23 10/09/23 23:59 23:59 23:59 23:59 Intake Total 1350 Output Total 800 1250 Balance 550 -1250 Meds/Results Medications: Active Medications Generic Name Dose Route Start Last Admin Trade Name Freq PRN Reason Stop Dose Admin Acetaminophen 500 mg 10/08/23 16:27 Acetaminophen 500 Mg Tablet PO Q6H PRN Mild Pain (1-3) or Fever Albuterol 2 puff 10/08/23 20:40 Albuterol Sulfate (*Sp) Aerosol 1 Puff INHALATION Q4HRT PRN sob Albuterol/Ipratropium 3 ml 10/08/23 20:00 10/09/23 07:00 Ipratropium 0.5 Mg/Albuterol Sulfate 2.5 Mg Ampul.Neb 3 Ml INHALATION 3 ml Q6HRT PO Administration Atorvastatin Calcium 40 mg 10/09/23 09:00 10/09/23 08:48 Atorvastatin 40 Mg Tablet PO 40 mg DAILY PO Administration Baclofen 10 mg 10/09/23 09:00 10/09/23 08:48 Baclofen 10 Mg Tablet PO 10 mg BID PO Administration Benzocaine 1 lozenge 10/08/23 16:26 Benzocaine/Menthol (*Bkc) 18 Ea Lozenge PO PRN PRN Sore Throat Benzonatate 100 mg 10/08/23 16:26 Benzonatate 100 Mg Capsule PO TID PRN Cough Bupropion HCl 150 mg 10/09/23 09:00 10/09/23 08:48 Bupropion Hcl Sr (12 Hr) 150 Mg Tab PO 150 mg DAILY PO Administration Buspirone HCl 2.5 mg 10/09/23 09:00 10/09/23 08:49 Buspirone Hcl 2.5 Mg Tablet PO 11/08/23 08:59 2.5 mg BID PO Administration Buspirone HCl 5 mg 10/09/23 09:00 10/09/23 08:49 Buspirone Hcl 5 Mg Tablet PO 5 mg BID [facility] Administration Capsaicin 1 applic 10/09/23 09:00 Home Med-Capsaicin 0.075% Cream 60 Gm Tube TOPICAL TID [facility] Celecoxib 200 mg 10/08/23 20:40 Celecoxib 200 Mg Capsule PO BID PRN Pain Dextrose 12.5 gm 10/08/23 20:40 Dextrose 50% 25 Gm/50 Ml Syringe IV PUSH PRN PRN Hypoglycemia Protocol Famotidine 20 mg 10/09/23 09:00 10/09/23 08:49 Famotidine 20 Mg Tablet PO 20 mg DAILY PO Administration Folic Acid 1 mg 10/09/23 09:00 10/09/23 08:50 Folic Acid 1 Mg Tablet PO 1 mg DAILY PO Administration Glucagon 1 mg 10/08/23 20:40 Glucagon For Inj 1 Mg Vial IM PRN PRN Hypoglycemia Protocol Glucose 15 gm 10/08/23 20:40 Glucose Oral Gel 15 Gm Of Glucse In 37.5 Gm Tube PO PRN PRN Hypoglycemia Protocol Hydralazine HCl 10 mg 10/09/23 09:00 10/09/23 08:50 Hydralazine 10 Mg Tablet PO 10 mg BID OP Administration Ceftriaxone Sodium 1 gm in 50 mls @ 100 mls/hr 10/09/23 15:00 Rocephin 1 Gm/Ns 50 Ml IVPB Q24H PO Azithromycin 500 mg in 250 mls @ 250 mls/hr 10/09/23 12:00 Zithromax IVPB Q24H PO Dextrose 1,000 mls @ 100 mls/hr 10/08/23 20:40 Dextrose 5% 1,000 Ml IVPB PRN PRN Hypoglycemia Protocol Insulin Aspart 2 - 5 units 10/09/23 08:00 10/09/23 08:28 Insulin Aspart (*Bk) 100 Units/Ml SUB-Q Not Given TIDWM PO Protocol Levothyroxine Sodium 100 mcg 10/09/23 06:30 10/09/23 05:43 Levothyroxine Sodium 100 Mcg Tablet PO 100 mcg DAILY@0630 PO Administration Lisinopril 20 mg 10/08/23 21:00 10/08/23 21:40 Lisinopril 20 Mg Tablet PO 20 mg HS PO Administration Loratadine 10 mg 10/09/23 09:00 10/09/23 08:50 Loratadine 10 Mg Tablet PO 11/08/23 08:59 10 mg DAILY PO Administration Meclizine HCl 25 mg 10/09/23 09:00 10/09/23 08:50 Meclizine Hcl 25 Mg Tablet PO 25 mg TID PO Administration Montelukast Sodium 10 mg 10/09/23 09:00 10/09/23 08:50 Montelukast Sodium 10 Mg Tablet PO 10 mg DAILY PO Administration Ondansetron HCl 4 mg 10/08/23 20:40 Ondansetron Hcl Odt 4 Mg Tablet PO Q6H PRN Nausea Pantoprazole Sodium 40 mg 10/09/23 09:00 10/09/23 08:50 Pantoprazole 40 Mg Tablet PO 40 mg DAILY PO Administration Paroxetine HCl 40 mg 10/09/23 09:00 10/09/23 08:50 Paroxetine 20 Mg Tablet PO 40 mg DAILY PO Administration Perflutren Lipid Microsphere 0 ml 10/09/23 00:11 Perflutren Lipid Microspheres 1.5 Ml Vial Diluted To 10 Ml Total Volume IV PUSH 07/14/24 00:11 ONCE PRN adequate visualization Protocol Prednisone 40 mg 10/09/23 08:00 10/09/23 08:48 Prednisone 20 Mg Tablet PO 10/13/23 08:01 40 mg DAILY@0800 PO Administration Rifaximin 550 mg 10/08/23 21:00 10/09/23 08:51 Rifaximin 550 Mg Tablet PO 550 mg Q12H PO Administration Fluticasone/Salmeterol 2 puff 10/09/23 09:00 10/09/23 07:00 Fluticasone/Salmeterol 115-21 Mcg Inhaler 1 Puff INHALATION 2 puff Q12HR PO Administration Spironolactone 50 mg 10/09/23 09:00 10/09/23 08:51 Spironolactone 25 Mg Tablet PO 50 mg DAILY PO Administration Sucralfate 1 gm 10/09/23 09:00 10/09/23 08:51 Sucralfate 1 Gm Tablet PO 1 gm BID PO Administration Tamsulosin HCl 0.4 mg 10/08/23 21:00 10/08/23 21:40 Tamsulosin Hcl 0.4 Mg Capsule PO 0.4 mg HS PO Administration Triamcinolone Acetonide 1 applic 10/08/23 20:40 Triamcinolone Acet 0.5% Cream 15 Gm Tube TOPICAL BID PRN Rash Umeclidinium [place] 1 puff 10/09/23 09:00 10/09/23 07:00 Umeclidinium [place] 62.5 Mcg Ellipta INHALATION 11/08/23 08:59 1 puff DAILY PO Administration Radiology Results: ITS Impressions Head CT 10/08/23 14:08 IMPRESSION: No acute intracranial findings. Chest X-Ray 10/08/23 14:14 IMPRESSION: Bibasilar pneumonia more on the left side. Bilateral interstitial thickening suggestive of pneumonitis versus pulmonary edema. Chest CTA 10/08/23 22:43 IMPRESSION: 1. No pulmonary embolus. Sensitivity is moderately decreased by motion artifact. 2. Diffuse lung disease, consistent with pulmonary edema versus atypical pneumonia. 3. Cirrhosis of the liver. 4. T12 burst fracture, likely subacute or chronic. Labs Labs: Laboratory Results - last 24 hr 10/08/23 10/08/23 10/08/23 12:40 12:42 13:50 WBC 20.2 H RBC 4.46 Hgb 13.7 Hct 39.9 MCV 89.5 MCH 30.7 MCHC 34.3 RDW 12.5 Plt Count 226 MPV 11.4 H Immature Gran % (Auto) 0.7 H Neut % (Auto) 89.8 H Lymph % (Auto) 3.9 L Fleming % (Auto) 4.3 Eos % (Auto) 1.0 Baso % (Auto) 0.3 Lymph # (Auto) 0.79 L Fleming # (Auto) 0.9 H Eos # (Auto) 0.2 Baso # (Auto) 0.1 Abs Immat Gran (auto) 0.14 H Absolute Neuts (auto) 18.2 H Absolute Nucleated RBC 0.000 Nucleated RBC % 0.0 PT 15.3 H INR 1.2 APTT 36.0 Puncture Site ABG pH ABG pCO2 ABG pO2 ABG PO2/FiO2 Ratio ABG HCO3 ABG O2 Saturation ABG O2 Content ABG Base Excess A-a Gradient Oxyhemoglobin Carboxyhemoglobin Methemoglobin Reduced Hemoglobin Total Hemoglobin O2 Delivery Device O2 Liters/Min FiO2 Sodium 126 L Potassium 4.8 Chloride 93 L Carbon Dioxide 22 Anion Gap 11 BUN 8 Creatinine 0.90 Estim Creat Clear Calc 59 Estimated GFR > 60 Glucose 103 POC Capillary Glucose Calcium 8.9 Magnesium 1.5 L Total Bilirubin 1.3 AST 39 H ALT 21 Alkaline Phosphatase 238 H Ammonia Troponin I < 0.012 NT-Pro-B Natriuret Pep 113 H Total Protein 8.0 Albumin 4.5 Lipase 79 Urine Color Yellow Urine Appearance Clear Urine pH 6.5 Ur Specific [place] 1.004 Urine Protein Negative Urine Glucose (UA) Negative Urine Ketones Negative Ur Blood (Man) Negative Urine Nitrate Negative Urine Bilirubin Negative Urine Urobilinogen 1.0 Leukocyte Esterase Rfl Trace H Urine RBC 0-2 Urine WBC 0-5 Ur Squamous Epith Cells None seen Urine Bacteria None seen Urine Casts 0-2 U Random Total Protein Ur Random Sodium Urine Creatinine Protein/Creat Ratio 2 Nasal MRSA (PCR) Urine Opiates Screen Urine Methadone Screen Ur Barbiturates Screen Ur Phencyclidine Scrn Ur Amphetamine Screen U Benzodiazepines Scrn Urine Cocaine Screen U Cannabinoids Screen Influenza A (RT-PCR) Negative Influenza B (RT-PCR) Negative RSV (RT-PCR) Negative SARS-CoV-2 RNA (RT-PCR) Negative 10/08/23 10/08/23 10/08/23 14:30 14:51 16:56 WBC RBC Hgb Hct MCV MCH MCHC RDW Plt Count MPV Immature Gran % (Auto) Neut % (Auto) Lymph % (Auto) Fleming % (Auto) Eos % (Auto) Baso % (Auto) Lymph # (Auto) Fleming # (Auto) Eos # (Auto) Baso # (Auto) Abs Immat Gran (auto) Absolute Neuts (auto) Absolute Nucleated RBC Nucleated RBC % PT INR APTT Puncture Site Left radial ABG pH 7.412 ABG pCO2 33.2 L ABG pO2 80.9 ABG PO2/FiO2 Ratio 1.39 ABG HCO3 20.7 L ABG O2 Saturation 96.2 ABG O2 Content 18.5 ABG Base Excess -3.1 A-a Gradient 296.0 Oxyhemoglobin 94.6 Carboxyhemoglobin 1.5 Methemoglobin 0.2 Reduced Hemoglobin 3.7 Total Hemoglobin 13.9 O2 Delivery Device Other device O2 Liters/Min 8.0 FiO2 58 Sodium Potassium Chloride Carbon Dioxide Anion Gap BUN Creatinine Estim Creat Clear Calc Estimated GFR Glucose POC Capillary Glucose 213 H Calcium Magnesium Total Bilirubin AST ALT Alkaline Phosphatase Ammonia Troponin I < 0.012 NT-Pro-B Natriuret Pep Total Protein Albumin Lipase Urine Color Urine Appearance Urine pH Ur Specific [place] Urine Protein Urine Glucose (UA) Urine Ketones Ur Blood (Man) Urine Nitrate Urine Bilirubin Urine Urobilinogen Leukocyte Esterase Rfl Urine RBC Urine WBC Ur Squamous Epith Cells Urine Bacteria Urine Casts U Random Total Protein Ur Random Sodium Urine Creatinine Protein/Creat Ratio 2 Nasal MRSA (PCR) Urine Opiates Screen Urine Methadone Screen Ur Barbiturates Screen Ur Phencyclidine Scrn Ur Amphetamine Screen U Benzodiazepines Scrn Urine Cocaine Screen U Cannabinoids Screen Influenza A (RT-PCR) Influenza B (RT-PCR) RSV (RT-PCR) SARS-CoV-2 RNA (RT-PCR) 10/08/23 10/08/23 10/08/23 17:25 17:41 19:55 WBC RBC Hgb Hct MCV MCH MCHC RDW Plt Count MPV Immature Gran % (Auto) Neut % (Auto) Lymph % (Auto) Fleming % (Auto) Eos % (Auto) Baso % (Auto) Lymph # (Auto) Fleming # (Auto) Eos # (Auto) Baso # (Auto) Abs Immat Gran (auto) Absolute Neuts (auto) Absolute Nucleated RBC Nucleated RBC % PT INR APTT Puncture Site ABG pH ABG pCO2 ABG pO2 ABG PO2/FiO2 Ratio ABG HCO3 ABG O2 Saturation ABG O2 Content ABG Base Excess A-a Gradient Oxyhemoglobin Carboxyhemoglobin Methemoglobin Reduced Hemoglobin Total Hemoglobin O2 Delivery Device O2 Liters/Min FiO2 Sodium Potassium Chloride Carbon Dioxide Anion Gap BUN Creatinine Estim Creat Clear Calc Estimated GFR Glucose POC Capillary Glucose 238 H Calcium Magnesium Total Bilirubin AST ALT Alkaline Phosphatase Ammonia < 9 L Troponin I < 0.012 NT-Pro-B Natriuret Pep Total Protein Albumin Lipase Urine Color Urine Appearance Urine pH Ur Specific [place] Urine Protein Urine Glucose (UA) Urine Ketones Ur Blood (Man) Urine Nitrate Urine Bilirubin Urine Urobilinogen Leukocyte Esterase Rfl Urine RBC Urine WBC Ur Squamous Epith Cells Urine Bacteria Urine Casts U Random Total Protein Ur Random Sodium Urine Creatinine Protein/Creat Ratio 2 Nasal MRSA (PCR) Urine Opiates Screen Negative Urine Methadone Screen Negative Ur Barbiturates Screen Negative Ur Phencyclidine Scrn Negative Ur Amphetamine Screen Negative U Benzodiazepines Scrn Negative Urine Cocaine Screen Negative U Cannabinoids Screen Negative Influenza A (RT-PCR) Influenza B (RT-PCR) RSV (RT-PCR) SARS-CoV-2 RNA (RT-PCR) 10/08/23 10/08/23 10/09/23 22:39 23:45 02:30 WBC RBC Hgb Hct MCV MCH MCHC RDW Plt Count MPV Immature Gran % (Auto) Neut % (Auto) Lymph % (Auto) Fleming % (Auto) Eos % (Auto) Baso % (Auto) Lymph # (Auto) Fleming # (Auto) Eos # (Auto) Baso # (Auto) Abs Immat Gran (auto) Absolute Neuts (auto) Absolute Nucleated RBC Nucleated RBC % PT INR APTT Puncture Site Right radial ABG pH 7.370 ABG pCO2 34.6 L ABG pO2 70.3 L ABG PO2/FiO2 Ratio 0.70 ABG HCO3 19.6 L ABG O2 Saturation 93.9 L ABG O2 Content 17.6 ABG Base Excess -4.9 A-a Gradient 608.1 Oxyhemoglobin 93.3 Carboxyhemoglobin Methemoglobin Reduced Hemoglobin Total Hemoglobin 13.4 O2 Delivery Device High flow nasal issa O2 Liters/Min 12.0 FiO2 100 Sodium Potassium Chloride Carbon Dioxide Anion Gap BUN Creatinine Estim Creat Clear Calc Estimated GFR Glucose POC Capillary Glucose 209 H Calcium Magnesium Total Bilirubin AST ALT Alkaline Phosphatase Ammonia Troponin I NT-Pro-B Natriuret Pep Total Protein Albumin Lipase Urine Color Urine Appearance Urine pH Ur Specific [place] Urine Protein Urine Glucose (UA) Urine Ketones Ur Blood (Man) Urine Nitrate Urine Bilirubin Urine Urobilinogen Leukocyte Esterase Rfl Urine RBC Urine WBC Ur Squamous Epith Cells Urine Bacteria Urine Casts U Random Total Protein 8 Ur Random Sodium 81 Urine Creatinine 19.2 Protein/Creat Ratio 2 0.42 H Nasal MRSA (PCR) Not detected Urine Opiates Screen Urine Methadone Screen Ur Barbiturates Screen Ur Phencyclidine Scrn Ur Amphetamine Screen U Benzodiazepines Scrn Urine Cocaine Screen U Cannabinoids Screen Influenza A (RT-PCR) Influenza B (RT-PCR) RSV (RT-PCR) SARS-CoV-2 RNA (RT-PCR) 10/09/23 10/09/23 03:35 07:42 WBC 21.7 H RBC 4.49 Hgb 13.7 Hct 39.9 MCV 88.9 MCH 30.5 MCHC 34.3 RDW 12.9 Plt Count 195 MPV 11.1 H Immature Gran % (Auto) 1.5 H Neut % (Auto) 93.0 H Lymph % (Auto) 2.2 L Fleming % (Auto) 3.2 Eos % (Auto) 0.0 Baso % (Auto) 0.1 L Lymph # (Auto) 0.48 L Fleming # (Auto) 0.7 H Eos # (Auto) 0.0 Baso # (Auto) 0.0 Abs Immat Gran (auto) 0.33 H Absolute Neuts (auto) 20.2 H Absolute Nucleated RBC 0.000 Nucleated RBC % 0.0 PT INR APTT Puncture Site ABG pH ABG pCO2 ABG pO2 ABG PO2/FiO2 Ratio ABG HCO3 ABG O2 Saturation ABG O2 Content ABG Base Excess A-a Gradient Oxyhemoglobin Carboxyhemoglobin Methemoglobin Reduced Hemoglobin Total Hemoglobin O2 Delivery Device O2 Liters/Min FiO2 Sodium 131 L Potassium 4.9 Chloride 99 Carbon Dioxide 23 Anion Gap 9 BUN 12 Creatinine 1.00 Estim Creat Clear Calc 53 Estimated GFR 57 L Glucose 195 H POC Capillary Glucose 191 H Calcium 9.2 Magnesium Total Bilirubin 0.7 AST 32 ALT 18 Alkaline Phosphatase 209 H Ammonia Troponin I NT-Pro-B Natriuret Pep Total Protein 7.0 Albumin 4.1 Lipase Urine Color Urine Appearance Urine pH Ur Specific [place] Urine Protein Urine Glucose (UA) Urine Ketones Ur Blood (Man) Urine Nitrate Urine Bilirubin Urine Urobilinogen Leukocyte Esterase Rfl Urine RBC Urine WBC Ur Squamous Epith Cells Urine Bacteria Urine Casts U Random Total Protein Ur Random Sodium Urine Creatinine Protein/Creat Ratio 2 Nasal MRSA (PCR) Urine Opiates Screen Urine Methadone Screen Ur Barbiturates Screen Ur Phencyclidine Scrn Ur Amphetamine Screen U Benzodiazepines Scrn Urine Cocaine Screen U Cannabinoids Screen Influenza A (RT-PCR) Influenza B (RT-PCR) RSV (RT-PCR) SARS-CoV-2 RNA (RT-PCR)
[2023-10-09 10:54] LABS: Alveolar/Arterial O2 Gradient 345.1 mmHg; Base Excess ABG 0.4 mEq/l (+/-2.0); Fractional Inspired Oxygen 64 %; HCO3 ABG 24.2 mEq/l (22.0-26.0); Oxygen Content ABG 18.4 %vol (16.0-22.0); Oxyhemoglobin 94.7 % THb (90.0-100.0); PCO2 ABG 36.6 mmHg (35.0-45.0); PO2 ABG 71.3 mmHg (80.0-100.0); PO2 FiO2 Ratio Arterial Blood 1.11 %; Total Hemoglobin 13.8 g/dL (12.0-18.0); pH ABG 7.439 (7.350-7.450)
[2023-10-09 10:56] LABS: Device HIGH FLOW NASAL CANN; Site Drawn RIGHT BRACHIAL
[2023-10-09 11:56] LABS: Glucose Point of Care 176 mg/dl (65-105)
[2023-10-09] MEDS: BENZONATATE 100 MG CAPSULE PO ×2 (12:06→17:52)
[2023-10-09] MEDS: AZITHROMYCIN 500 MG/NS 250 ML 500 MG/250 ML BAG 250 MG IVPB (12:07)
--- NOTE | 2023-10-09 15:00 | P.CONPL_ITS ---
Assessment and Plan Assessment and plan (1) COPD (chronic obstructive pulmonary disease): Qualifiers: COPD type: unspecified COPD Qualified Code(s): J44.9 - Chronic obstructive pulmonary disease, unspecified Code(s): J44.9 - Chronic obstructive pulmonary disease, unspecified Status: Acute Assessment and Plan: Long standing history of COPD, home meds include Advair 250/50, Spiriva Handihaler 18 mcg /day, albuterol nebulized and albuterol inhaler, montelukast. No pulmonary functions tests in our system. (2) Acute hypoxemic respiratory failure: Code(s): J96.01 - Acute respiratory failure with hypoxia Status: Acute Assessment and Plan: Not on O2 at baseline, rapidly increasing need for O2 after admission, now 11 L/min. will try AirVo for comfort and possible weaning. (3) Bilateral pneumonia: Code(s): J18.9 - Pneumonia, unspecified organism Status: Acute Assessment and Plan: L > R infiltrates on chest CT with symptoms compatible with community acquired pneumonia, with increasing O2 demands. Initial viral swabs for vral pathogens negative. Agree with current treatment regimen. (4) Tobacco abuse: Code(s): Z72.0 - Tobacco use Status: Acute Assessment and Plan: SHie si a current smoker, tobacco cessation is important, needs information prior to discharge to prevent relapse. Plan 1. Change O2 delivery to AirVo; this can deliver more O2 comfortably with small amount of PEEP without using a tight mask. She did not tolerate BiPAP. She did not need BiPAP as she had normal CO2 levels. 2. Continue antibiotics, bronchodilators, steroids. 3. Serology for viral pathogens is negative; consider extended spectrum respiratory panel. Will follow with you. History of Present Illness History of Present Illness Consult date: 10/09/23 Requesting physician: Glenroy Colón MD Chief complaint: Pneumonia Narrative: Pt was seen October 08 at 14:30 in Room 202; reason: bilateral pneumonia, increasing hypoxemia NEW: Analilia Montgomery is a 57-yo female with COPD, smoking history now a half pack per day, Admitted with increased shortness of breath over 2 days, chest tightness, increased use of inhalers without relief, sore throat, nausea vomiting fatigue and headache; ER evaluation showed increased WBC 20.2K, CTA with no PE, she had bilateral ground glass opacities consistent with bilateral pneumonia, L>R; has no sputum to test; had Rapid Response overnight October 07 to ; O2 need increased. She was transferred to IMU Room 202, feeling better now. PMH: COPD, diabetes, hypertension, hyperlipidemia, hypothyroidism presenting with shortness of breath DATA * 10/08/23; CTA = FINDINGS: There are groundglass opacities and crazy paving involving all lobes. A calcified right lung nodule is consistent with old granulomatous disease. No pleural effusion. The heart size is normal. There are coronary artery calcifications. No pericardial effusion. There is no pulmonary embolus. The liver demonstrates surface nodularity, consistent with cirrhosis. There are gallstones in the gallbladder. There is severe thoracic spondylosis. There is a burst fracture of T12 with 2/5 loss of height and retropulsion of bone 3 mm into central spinal canal. IMPRESSION: 1. No pulmonary embolus. Sensitivity is moderately decreased by motion artifact. 2. Diffuse lung disease, consistent with pulmonary edema versus atypical pneumonia. 3. Cirrhosis of the liver. 4. T12 burst fracture, likely subacute or chronic. * 10/09/2023 echo;Complete two-dimensional, color flow and Doppler transthoracic echocardiogram is performed. 2. Left ventricular chamber dimension is normal. 3. Left ventricular systolic function is hyperdynamic, estimated at >70%. 4. There is mildly increased left ventricular wall thickness. 5. The left ventricular diastolic function is grade I diastolic dysfunction. 6. There is mild tricuspid valve regurgitation. * 10/08/2023 ABG Review of Systems Review of Systems: All systems reviewed & are unremarkable except as noted in HPI and below PMFSH Past Medical History Medical History Allergies COPD (chronic obstructive pulmonary disease) Current smoker Diabetes GERD (gastroesophageal reflux disease) Hypothyroidism Family History Family History Other Unknown family medical history Social History Social History Smoking packs per day: 1 Smoking cigarettes per day: 20.0 Years smoked: 47 Smoking pack-years: 47.00 Smoking status: Current every day smoker Tobacco type: cigarettes and e-cigarettes/vaping Alcohol intake: former Substance use: former Substance use type: marijuana and crack/cocaine Other substance usage details: 2010 was last use of alcohol (previous 30pk per day), last drug use 2010 Do You Feel Safe in your Home?: Yes Lack of Transportation: YES Lack of Food: Never True Current Housing: I Have Housing Concerned About Future Housing: No Difficulty Paying Gas/Electric Bills: No Difficulty Paying for Meds: No Currently Unemployed: No Education: Don't Know Difficulty w/ Childcare or Family Care: No Spiritual care concerns: No Meds Home Medications and Allergies Home Medications Medication Instructions Recorded Confirmed Type acetaminophen 325 mg tablet 325 mg PO DAILY 10/08/23 10/08/23 History albuterol sulfate 90 mcg/actuation 2 puff inhalation Q4H PRN sob 10/08/23 10/08/23 History aerosol inhaler atorvastatin 40 mg tablet 40 mg PO DAILY 10/08/23 10/08/23 History baclofen 10 mg tablet 10 mg PO BID 10/08/23 10/08/23 History bupropion HCl 150 mg tablet,12 hr 150 mg PO DAILY 10/08/23 10/08/23 History sustained-release buspirone 7.5 mg tablet 7.5 mg PO BID 10/08/23 10/08/23 History capsaicin 0.075 % topical cream 1 applic topical TID 10/08/23 10/08/23 History (Arthritis Pain Relief (capsaicin)) celecoxib 200 mg capsule 200 mg PO BID PRN Pain 10/08/23 10/08/23 History cetirizine 10 mg tablet (Allergy 10 mg PO DAILY 10/08/23 10/08/23 History Relief (cetirizine)) ergocalciferol (vitamin D2) 1,250 1,250 mcg PO DAILY 10/08/23 10/08/23 History mcg (50,000 unit) capsule (Vitamin D2) famotidine 20 mg tablet 20 mg PO DAILY 10/08/23 10/08/23 History fluticasone 250 mcg-salmeterol 50 1 inh inhalation BID 10/08/23 10/08/23 History mcg/dose blistr powdr for inhalation (Advair Diskus) fluticasone propionate 50 50 mcg intranasal DAILY 10/08/23 10/08/23 History mcg/actuation nasal spray,suspension folic acid 1 mg tablet 1 mg PO DAILY 10/08/23 10/08/23 History hydralazine 10 mg tablet 10 mg PO BID 10/08/23 10/08/23 History levothyroxine 100 mcg tablet 100 mcg PO DAILY 10/08/23 10/08/23 History lisinopril 20 mg tablet 20 mg PO HS 10/08/23 10/08/23 History meclizine 25 mg tablet 25 mg PO TID 10/08/23 10/08/23 History metformin 500 mg tablet 500 mg PO DAILY 10/08/23 10/08/23 History montelukast 10 mg tablet 10 mg PO DAILY 10/08/23 10/08/23 History ondansetron 4 mg disintegrating 4 mg PO Q6H PRN Nausea 10/08/23 10/08/23 History tablet pantoprazole 40 mg tablet,delayed 40 mg PO DAILY 10/08/23 10/08/23 History release paroxetine HCl 40 mg tablet 40 mg PO DAILY 10/08/23 10/08/23 History rifaximin 550 mg tablet (Xifaxan) 550 mg PO Q12H 10/08/23 10/08/23 History spironolactone 25 mg tablet 50 mg PO DAILY 10/08/23 10/08/23 History sucralfate 1 gram tablet 1 g PO BID 10/08/23 10/08/23 History tamsulosin 0.4 mg capsule 0.4 mg PO HS 10/08/23 10/08/23 History tiotropium bromide 18 mcg capsule 1 cap inhalation DAILY 10/08/23 10/08/23 History with inhalation device (Spiriva with HandiHaler) triamcinolone acetonide 0.5 % 1 applic topical BID PRN Rash 10/08/23 10/08/23 History topical cream gabapentin 800 mg tablet 800 mg PO TID PRN .Neuropathy pain 10/12/23 10/12/23 History olopatadine 0.2 % eye drops 1 drp EACH EYE DAILY PRN Dry Eyes 10/12/23 10/12/23 History (Pataday Once Daily Relief) guaifenesin 600 mg tablet, 600 mg PO Q12HR #30 tabs 10/14/23 Rx extended release 12 hr (Mucus Relief ER) ipratropium 0.5 mg-albuterol 3 mg 3 ml inhalation Q6HRT #30 mL 10/14/23 Rx (2.5 mg base)/3 mL nebulization soln prednisone 10 mg tablet 10 mg PO DIRECTED #18 tabs 10/14/23 Rx Allergies Allergy/AdvReac Type Severity Reaction Status Date / Time Sulfa (Sulfonamide AdvReac Mild NAUSEA AND Verified 10/08/23 17:55 Antibiotics) VOMITING Vital Signs Vital Signs - 24 hr 10/08/23 15:28 10/08/23 15:24 10/08/23 15:30 Temperature Pulse Rate 141 H 142 H 140 H Respiratory Rate 25 H 28 H 24 H Blood Pressure 129/85 134/73 Pulse Oximetry 97 92 Oxygen Delivery Oxygen Flow Rate 10/08/23 16:00 10/08/23 18:26 10/08/23 20:04 Temperature Pulse Rate 136 H 115 H Respiratory Rate Blood Pressure Pulse Oximetry 92 93 Oxygen Delivery Nasal Cannula Nasal Cannula Oxygen Flow Rate 4 4 10/08/23 20:04 10/08/23 20:14 10/08/23 20:00 Temperature Pulse Rate 115 H 117 H 113 H Respiratory Rate 20 20 Blood Pressure Pulse Oximetry Oxygen Delivery Oxygen Flow Rate 10/08/23 20:00 10/08/23 20:53 10/08/23 21:12 Temperature 37.0 C Pulse Rate 113 H Respiratory Rate 20 Blood Pressure 141/86 H Pulse Oximetry 90 94 Oxygen Delivery High Flow Therapy with Na Autopap Oxygen Flow Rate 10 10/08/23 21:37 10/08/23 23:46 10/09/23 00:09 Temperature 37.3 C 37.1 C Pulse Rate 119 H 118 H Respiratory Rate 24 H 14 26 H Blood Pressure 136/70 162/98 H Pulse Oximetry 91 95 97 Oxygen Delivery BiPAP Oxygen Flow Rate 10/08/23 23:42 10/09/23 00:00 10/09/23 00:00 Temperature Pulse Rate 120 H 118 H Respiratory Rate 20 Blood Pressure 162/98 H Pulse Oximetry 95 97 Oxygen Delivery High Flow Therapy with Na BiPAP Oxygen Flow Rate 15 10/09/23 02:15 10/09/23 02:40 10/09/23 03:24 Temperature Pulse Rate 120 H 120 H Respiratory Rate 24 H 22 H Blood Pressure Pulse Oximetry 93 92 Oxygen Delivery High Flow Nasal Cannula High Flow Nasal Cannula Oxygen Flow Rate 15 15 10/09/23 02:50 10/09/23 02:00 10/09/23 04:43 Temperature 36.6 C Pulse Rate 121 H 127 H 111 H Respiratory Rate 22 H 20 Blood Pressure 134/68 Pulse Oximetry 96 Oxygen Delivery Oxygen Flow Rate 10/09/23 04:00 10/09/23 04:00 10/09/23 06:00 Temperature Pulse Rate 111 H 114 H Respiratory Rate Blood Pressure Pulse Oximetry 98 Oxygen Delivery High Flow Nasal Cannula Oxygen Flow Rate 13 10/09/23 07:00 10/09/23 07:00 10/09/23 07:10 Temperature Pulse Rate 115 H 115 H 118 H Respiratory Rate 20 20 20 Blood Pressure Pulse Oximetry 95 Oxygen Delivery High Flow Nasal Cannula Oxygen Flow Rate 11 10/09/23 07:38 10/09/23 08:00 10/09/23 08:00 Temperature 36.2 C L Pulse Rate 116 H 115 H Respiratory Rate 22 H Blood Pressure 130/68 Pulse Oximetry 91 91 Oxygen Delivery High Flow Nasal Cannula Oxygen Flow Rate 11 10/09/23 10:00 10/09/23 11:42 10/09/23 12:00 Temperature 36.1 C L Pulse Rate 110 H 107 H 111 H Respiratory Rate 24 H Blood Pressure 128/65 Pulse Oximetry 95 Oxygen Delivery Oxygen Flow Rate 10/09/23 12:00 10/09/23 13:00 10/09/23 13:10 Temperature Pulse Rate 107 H 109 H Respiratory Rate 20 20 Blood Pressure Pulse Oximetry 91 Oxygen Delivery High Flow Nasal Cannula Oxygen Flow Rate 11 10/09/23 14:00 Temperature Pulse Rate 116 H Respiratory Rate Blood Pressure Pulse Oximetry Oxygen Delivery Oxygen Flow Rate Exam Narrative: GEN: Alert, oriented, mild to moderate increased respiratory effort, wearing NC with O2 at 11 L/min. She is sitting upright in bed, one leg crossed on bed, other hanging over edge HEENT: pupils are equal, EOMI, symmetrical face; oral membranes moist, Mallampati III airway, no erythema, no exudate NECK: Trachea is midline CHEST: Equal air entry, symmetric excursion, accessory muscle use, hyperin flated thorax, decreased breath sounds CV: Tachycardic S1S2; cannot hear any additional sounds ABD : (+) bowel sounds Extremities : no clubbing, cyanosis, or edema, thin ankles. No rashes. No calf tenderness. Skin is warm and dry. PSYCH: normal thought. Speech is labored with increased effort to breathe. Results Laboratory Findings 10/14/23 06:01 10/14/23 06:01 ABG, PT/INR, D-dimer: ABG ABG pH 7.439 (7.350-7.450) 10/09/23 10:45 ABG pCO2 36.6 mmHg (35.0-45.0) 10/09/23 10:45 ABG pO2 71.3 mmHg (80.0-100.0) L 10/09/23 10:45 ABG O2 Saturation 95.0 % (95.0-100.0) 10/09/23 10:45 PT/INR, D-dimer PT 15.3 Seconds (11.1-14.7) H 10/08/23 12:42 INR 1.2 10/08/23 12:42 Abnormal lab findings: Abnormal Labs 10/08/23 10/08/23 10/08/23 12:40 12:42 13:50 WBC 20.2 H MPV 11.4 H Immature Gran % (Auto) 0.7 H Neut % (Auto) 89.8 H Lymph % (Auto) 3.9 L Baso % (Auto) Lymph # (Auto) 0.79 L [place] # (Auto) 0.9 H Abs Immat Gran (auto) 0.14 H Absolute Neuts (auto) 18.2 H PT 15.3 H ABG pCO2 ABG pO2 ABG HCO3 ABG O2 Saturation Sodium 126 L Chloride 93 L Estimated GFR Glucose POC Capillary Glucose Magnesium 1.5 L AST 39 H Alkaline Phosphatase 238 H Ammonia NT-Pro-B Natriuret Pep 113 H Leukocyte Esterase Rfl Trace H Protein/Creat Ratio 2 10/08/23 10/08/23 10/08/23 14:51 16:56 17:41 WBC MPV Immature Gran % (Auto) Neut % (Auto) Lymph % (Auto) Baso % (Auto) Lymph # (Auto) [place] # (Auto) Abs Immat Gran (auto) Absolute Neuts (auto) PT ABG pCO2 33.2 L ABG pO2 ABG HCO3 20.7 L ABG O2 Saturation Sodium Chloride Estimated GFR Glucose POC Capillary Glucose 213 H Magnesium AST Alkaline Phosphatase Ammonia < 9 L NT-Pro-B Natriuret Pep Leukocyte Esterase Rfl Protein/Creat Ratio 2 10/08/23 10/08/23 10/08/23 19:55 22:39 23:45 WBC MPV Immature Gran % (Auto) Neut % (Auto) Lymph % (Auto) Baso % (Auto) Lymph # (Auto) [place] # (Auto) Abs Immat Gran (auto) Absolute Neuts (auto) PT ABG pCO2 34.6 L ABG pO2 70.3 L ABG HCO3 19.6 L ABG O2 Saturation 93.9 L Sodium Chloride Estimated GFR Glucose POC Capillary Glucose 238 H 209 H Magnesium AST Alkaline Phosphatase Ammonia NT-Pro-B Natriuret Pep Leukocyte Esterase Rfl Protein/Creat Ratio 2 10/09/23 10/09/23 10/09/23 02:30 03:35 07:42 WBC 21.7 H MPV 11.1 H Immature Gran % (Auto) 1.5 H Neut % (Auto) 93.0 H Lymph % (Auto) 2.2 L Baso % (Auto) 0.1 L Lymph # (Auto) 0.48 L [place] # (Auto) 0.7 H Abs Immat Gran (auto) 0.33 H Absolute Neuts (auto) 20.2 H PT ABG pCO2 ABG pO2 ABG HCO3 ABG O2 Saturation Sodium 131 L Chloride Estimated GFR 57 L Glucose 195 H POC Capillary Glucose 191 H Magnesium AST Alkaline Phosphatase 209 H Ammonia NT-Pro-B Natriuret Pep Leukocyte Esterase Rfl Protein/Creat Ratio 2 0.42 H 10/09/23 10/09/23 10:45 11:41 WBC MPV Immature Gran % (Auto) Neut % (Auto) Lymph % (Auto) Baso % (Auto) Lymph # (Auto) [place] # (Auto) Abs Immat Gran (auto) Absolute Neuts (auto) PT ABG pCO2 ABG pO2 71.3 L ABG HCO3 ABG O2 Saturation Sodium Chloride Estimated GFR Glucose POC Capillary Glucose 176 H Magnesium AST Alkaline Phosphatase Ammonia NT-Pro-B Natriuret Pep Leukocyte Esterase Rfl Protein/Creat Ratio 2
[2023-10-09 17:16] LABS: Glucose Point of Care 161 mg/dl (65-105)
[2023-10-09] MEDS: ONDANSETRON HCL ODT 4 MG TABLET PO (17:52)
[2023-10-09 20:14] LABS: Glucose Point of Care 133 mg/dl (65-105)
[2023-10-09] MEDS: lisinopriL 20 MG TABLET PO (20:27)
[2023-10-09] MEDS: TAMSULOSIN HCL 0.4 MG CAPSULE PO (20:27)
[2023-10-10] VITALS (29 sets, daily range): BP systolic 108–147; BP diastolic 51–86; PULSE 101–128; RESP 20–26; TEMP 36–36.8; O2SAT 85–100
[2023-10-10] MEDS: IPRATROPIUM 0.5 MG/ALBUTEROL SULFATE 2.5 MG AMPUL.NEB 3 ML INHALATION ×4 (02:12→19:59)
[2023-10-10 04:21] LABS: Hematocrit 39.6 % (37.0-47.0); Hemoglobin 13.1 g/dL (12.0-15.0); Mean Corpuscular HGB Conc 33.1 g/dl (32-36); Mean Corpuscular Hemoglobin 30.4 pg (26-34); Mean Corpuscular Volume 91.9 fl (80-100); Mean Platelet Volume 11.6 fl (7.4-10.4); Platelet Count Result 217 k/mm3 (150-375); Red Blood Count 4.31 M/mm3 (4.2-5.4); White Blood Count 23.8 K/mm3 (4.5-10.0)
[2023-10-10 04:48] LABS: Alanine Aminotransferase 15 U/L (6-35); Alkaline Phosphatase 184 U/L (38-126); Anion Gap 10 mmol/L (4-12); Aspartate Amino Transferase 24 U/L (14-36); Bilirubin,Total 0.6 mg/dL (0.2-1.3); Blood Urea Nitrogen 23 mg/dL (7-17); Calcium 9.3 mg/dL (8.4-10.2); Carbon Dioxide 23 mmol/L (22-30); Chloride 99 mmol/L (98-107); Estimated CRCL calculation 48 ml/min; Estimated Glomerular Filt Rate 51; Glucose 130 mg/dL (65-110); Potassium 5.1 mmol/L (3.4-5.0); Sodium 132 mmol/L (137-145)
[2023-10-10] MEDS: LEVOTHYROXINE SODIUM 100 MCG TABLET PO (06:05)
[2023-10-10] MEDS: FLUTICASONE/SALMETEROL 115-21 MCG INHALER 1 PUFF 2 PUFF INHALATION ×2 (07:50→19:59)
[2023-10-10 08:32] LABS: Glucose Point of Care 113 mg/dl (65-105)
--- NOTE | 2023-10-10 08:36 | PM.IMPN ---
Progress Note: A&P Assessment and Plan (1) Bilateral pneumonia: Code(s): J18.9 - Pneumonia, unspecified organism Status: Acute (2) COPD (chronic obstructive pulmonary disease): Code(s): J44.9 - Chronic obstructive pulmonary disease, unspecified Status: Acute (3) Somnolence: Code(s): R40.0 - Somnolence Status: Acute (4) Diabetes: Qualifiers: Diabetes mellitus complication status: without complication Diabetes mellitus terminal supervisor insulin use: with terminal supervisor use Diabetes mellitus type: type 2 Qualified Code(s): E11.9 - Type 2 diabetes mellitus without complications; Z79.4 - assisted (current) use of insulin Code(s): E11.9 - Type 2 diabetes mellitus without complications Status: Chronic Plan Patient presented with shortness of breath. Remains on high-flow Oxygen.mild tachycardia persist. Labs reviewed leukocytosis persist. ABG with no hypercapnia. Troponin negative x 3. MRSA nares negative. Influenza RSV COVID negative. Mycoplasma Legionella, pneumococcal antigen pending. Chest x-ray with bilateral pneumonia more on the left side. Bilateral interstitial thickening suggestive of pneumonitis versus pulmonary edema. CTA chest with no PE diffuse lung disease consistent with pulmonary edema versus atypical pneumonia cirrhosis of liver and T12 burst fracture likely subacute or chronic. Blood culture x2 negative. Echo 10/09/2023 EF more than 70% mildly increased left ventricular wall thickness grade 1 diastolic dysfunction mild TR. hypoxic respiratory failure with rapid worsening on admission needing BiPAP now has been titrated down to high-flow oxygen supplementation.On ceftriaxone and azithromycin and prednisone. BNP was 113 repeat BNP elevated. Will give 1 dose Lasix today History of COPD. Possible COPD exacerbation on presentation was diffuse expiratory wheezing. Pulmonary has been consulted. Hyponatremia on admission 126 slowly improving Diabetes Hypertension Hyperlipidemia Hypothyroidism cirrhosis of liver Anxiety/depression Current smoker DVT prophylaxis add Lovenox Code status full code Subjective Date/time seen: 10/10/23 08:36 Interval history: Chart reviewed remains on high-flow Oxygen.mild tachycardia persist. Patient feels a little better than yesterday. FiO2 down some. Labs reviewed leukocytosis persist. ABG with no hypercapnia. Troponin negative x 3. MRSA nares negative. Influenza RSV COVID negative. Mycoplasma Legionella, pneumococcal antigen pending. Chest x-ray with bilateral pneumonia more on the left side. Bilateral interstitial thickening suggestive of pneumonitis versus pulmonary edema. CTA chest with no PE diffuse lung disease consistent with pulmonary edema versus atypical pneumonia cirrhosis of liver and T12 burst fracture likely subacute or chronic. Blood culture x2 negative. Echo 10/09/2023 EF more than 70% mildly increased left ventricular wall thickness grade 1 diastolic dysfunction mild TR. hypoxic respiratory failure with rapid worsening on admission needing BiPAP now has been titrated down to high-flow oxygen supplementation.On ceftriaxone and azithromycin and prednisone. BNP was 113 History of COPD. Possible COPD exacerbation on presentation was diffuse expiratory wheezing. Pulmonary has been consulted. Hyponatremia on admission 126 slowly improving Diabetes Hypertension Hyperlipidemia Hypothyroidism cirrhosis of liver Anxiety/depression Current smoker DVT prophylaxis add Lovenox Code status full code Review of Systems Review of Systems: All systems reviewed & are unremarkable except as noted in HPI and below Exam Narrative: GENERAL: Ill-appearing in no acute distress. Well-nourished. On Airvo - EYES: EOMI. Anicteric. - HENT: Moist mucous membranes. - LUNGS: Coarse breath sound bilaterally, mild wheezing end-expiratory - CARDIOVASCULAR: Mild tachycardia sinus on tele. No murmur. No JVD. - ABDOMEN: Soft, non-tender and non-distended. No palpable masses. - EXTREMITIES: No edema. Peripheral pulses 2+. Non-tender. - NEUROLOGIC: No focal neurological deficits. CN II-XII grossly intact. - PSYCHIATRIC: Awake, Alert and oriented x 3. Appropriate mood and affect. - SKIN: No rashes or lesions. Warm. - LYMPH: No cervical lymphadenopathy. Objective Data Vital Signs Vital Signs: Vital Signs - 24 hr 10/09/23 10:00 10/09/23 11:42 10/09/23 12:00 Temperature 97 F L Pulse Rate 110 H 107 H 111 H Respiratory Rate 24 H Blood Pressure 128/65 Pulse Oximetry 95 Oxygen Delivery Oxygen Flow Rate Fraction of Inspired Oxygen 10/09/23 12:00 10/09/23 13:00 10/09/23 13:10 Temperature Pulse Rate 107 H 109 H Respiratory Rate 20 20 Blood Pressure Pulse Oximetry 91 Oxygen Delivery High Flow Nasal Cannula Oxygen Flow Rate 11 Fraction of Inspired Oxygen 10/09/23 14:00 10/09/23 16:00 10/09/23 18:00 Temperature 97.4 F L Pulse Rate 116 H 110 H 107 H Respiratory Rate 22 H 20 Blood Pressure 134/72 Pulse Oximetry 92 97 Oxygen Delivery High Flow Therapy with Na Oxygen Flow Rate 30 Fraction of Inspired Oxygen 70 10/09/23 16:00 10/09/23 16:00 10/09/23 18:00 Temperature Pulse Rate 108 H 102 H Respiratory Rate Blood Pressure Pulse Oximetry 91 Oxygen Delivery High Flow Nasal Cannula Oxygen Flow Rate 11 Fraction of Inspired Oxygen 10/09/23 18:00 10/09/23 20:00 10/09/23 20:00 Temperature 97.8 F Pulse Rate 108 H 108 H Respiratory Rate 23 H 23 H Blood Pressure 120/82 Pulse Oximetry 92 100 100 Oxygen Delivery High Flow Therapy with Na High Flow Therapy with Na Oxygen Flow Rate 30 30 Fraction of Inspired Oxygen 70 70 10/09/23 20:00 10/09/23 22:00 10/09/23 20:48 Temperature Pulse Rate 107 H 101 H Respiratory Rate Blood Pressure Pulse Oximetry 100 Oxygen Delivery High Flow Therapy with Na Oxygen Flow Rate 30 Fraction of Inspired Oxygen 70 10/09/23 20:50 10/09/23 21:02 10/09/23 23:45 Temperature Pulse Rate 104 H 108 H 101 H Respiratory Rate 22 H 22 H 22 H Blood Pressure Pulse Oximetry 100 Oxygen Delivery High Flow Therapy with Na Oxygen Flow Rate 30 Fraction of Inspired Oxygen 70 10/09/23 23:46 10/10/23 00:00 10/10/23 02:14 Temperature 97.7 F Pulse Rate 106 H 104 H 102 H Respiratory Rate 23 H 20 Blood Pressure 153/72 H Pulse Oximetry 99 Oxygen Delivery Oxygen Flow Rate Fraction of Inspired Oxygen 10/10/23 02:00 10/10/23 03:50 10/10/23 04:00 Temperature Pulse Rate 106 H 102 H 102 H Respiratory Rate 20 Blood Pressure Pulse Oximetry 99 Oxygen Delivery High Flow Therapy with Na Oxygen Flow Rate 30 Fraction of Inspired Oxygen 70 10/10/23 04:00 10/10/23 06:00 10/10/23 02:24 Temperature 98.2 F Pulse Rate 101 H 109 H 106 H Respiratory Rate 22 H 20 Blood Pressure 132/72 Pulse Oximetry 98 Oxygen Delivery Oxygen Flow Rate Fraction of Inspired Oxygen 10/09/23 21:25 10/10/23 07:51 10/10/23 07:51 Temperature Pulse Rate 128 H Respiratory Rate 20 Blood Pressure Pulse Oximetry 98 98 Oxygen Delivery High Flow Therapy with Na High Flow Therapy with Na Oxygen Flow Rate 30 30 Fraction of Inspired Oxygen 6 60 10/10/23 08:03 10/10/23 08:14 Temperature 96.8 F L Pulse Rate 104 H 107 H Respiratory Rate 20 26 H Blood Pressure 119/54 L Pulse Oximetry 95 Oxygen Delivery Oxygen Flow Rate Fraction of Inspired Oxygen Intake/Output Intake/Output: Intake & Output 10/07/23 10/08/23 10/09/23 10/10/23 23:59 23:59 23:59 23:59 Intake Total 1350 1040 550 Output Total 800 1700 350 Balance 550 -660 200 Meds/Results Medications: Active Medications Generic Name Dose Route Start Last Admin Trade Name Freq PRN Reason Stop Dose Admin Acetaminophen 500 mg 10/08/23 16:27 Acetaminophen 500 Mg Tablet PO Q6H PRN Mild Pain (1-3) or Fever Albuterol 2 puff 10/08/23 20:40 Albuterol Sulfate (*Sp) Aerosol 1 Puff INHALATION Q4HRT PRN sob Albuterol/Ipratropium 3 ml 10/08/23 20:00 10/10/23 07:50 Ipratropium 0.5 Mg/Albuterol Sulfate 2.5 Mg Ampul.Neb 3 Ml INHALATION 3 ml Q6HRT ALEX Administration Atorvastatin Calcium 40 mg 10/09/23 09:00 10/09/23 08:48 Atorvastatin 40 Mg Tablet PO 40 mg DAILY ALEX Administration Baclofen 10 mg 10/09/23 09:00 10/09/23 17:51 Baclofen 10 Mg Tablet PO 10 mg BID ALEX Administration Benzocaine 1 lozenge 10/08/23 16:26 Benzocaine/Menthol (*Bkc) 18 Ea Lozenge PO PRN PRN Sore Throat Benzonatate 100 mg 10/08/23 16:26 10/09/23 17:52 Benzonatate 100 Mg Capsule PO 100 mg TID PRN Administration Cough Bupropion HCl 150 mg 10/09/23 09:00 10/09/23 08:48 Bupropion Hcl Sr (12 Hr) 150 Mg Tab PO 150 mg DAILY ALEX Administration Buspirone HCl 2.5 mg 10/09/23 09:00 10/09/23 17:51 Buspirone Hcl 2.5 Mg Tablet PO 11/08/23 08:59 2.5 mg BID ALEX Administration Buspirone HCl 5 mg 10/09/23 09:00 10/09/23 17:51 Buspirone Hcl 5 Mg Tablet PO 5 mg BID ALEX Administration Celecoxib 200 mg 10/08/23 20:40 Celecoxib 200 Mg Capsule PO BID PRN Pain Dextrose 12.5 gm 10/08/23 20:40 Dextrose 50% 25 Gm/50 Ml Syringe IV PUSH PRN PRN Hypoglycemia Protocol Famotidine 20 mg 10/09/23 09:00 10/09/23 08:49 Famotidine 20 Mg Tablet PO 20 mg DAILY ALEX Administration Folic Acid 1 mg 10/09/23 09:00 10/09/23 08:50 Folic Acid 1 Mg Tablet PO 1 mg DAILY ALEX Administration Glucagon 1 mg 10/08/23 20:40 Glucagon For Inj 1 Mg Vial IM PRN PRN Hypoglycemia Protocol Glucose 15 gm 10/08/23 20:40 Glucose Oral Gel 15 Gm Of Glucse In 37.5 Gm Tube PO PRN PRN Hypoglycemia Protocol Hydralazine HCl 10 mg 10/09/23 09:00 10/09/23 17:51 Hydralazine 10 Mg Tablet PO 10 mg BID ALEX Administration Ceftriaxone Sodium 1 gm in 50 mls @ 100 mls/hr 10/09/23 15:00 10/09/23 15:50 Rocephin 1 Gm/Ns 50 Ml IVPB Infused Q24H ALEX Infusion Azithromycin 500 mg in 250 mls @ 250 mls/hr 10/09/23 12:00 10/09/23 13:10 Zithromax IVPB Infused Q24H ALEX Infusion Dextrose 1,000 mls @ 100 mls/hr 10/08/23 20:40 Dextrose 5% 1,000 Ml IVPB PRN PRN Hypoglycemia Protocol Insulin Aspart 2 - 5 units 10/09/23 08:00 10/09/23 17:50 Insulin Aspart (*Bkc) 100 Units/Ml SUB-Q Not Given TIDWM ALEX Protocol Levothyroxine Sodium 100 mcg 10/09/23 06:30 10/10/23 06:05 Levothyroxine Sodium 100 Mcg Tablet PO 100 mcg DAILY@0630 ALEX Administration Lisinopril 20 mg 10/08/23 21:00 10/09/23 20:27 Lisinopril 20 Mg Tablet PO 20 mg HS ALEX Administration Loratadine 10 mg 10/09/23 09:00 10/09/23 08:50 Loratadine 10 Mg Tablet PO 11/08/23 08:59 10 mg DAILY ALEX Administration Meclizine HCl 25 mg 10/09/23 09:00 10/09/23 17:51 Meclizine Hcl 25 Mg Tablet PO 25 mg TID ALEX Administration Montelukast Sodium 10 mg 10/09/23 09:00 10/09/23 08:50 Montelukast Sodium 10 Mg Tablet PO 10 mg DAILY ALEX Administration Ondansetron HCl 4 mg 10/08/23 20:40 10/09/23 17:52 Ondansetron Hcl Odt 4 Mg Tablet PO 4 mg Q6H PRN Administration Nausea Pantoprazole Sodium 40 mg 10/09/23 09:00 10/09/23 08:50 Pantoprazole 40 Mg Tablet PO 40 mg DAILY ALEX Administration Paroxetine HCl 40 mg 10/09/23 09:00 10/09/23 08:50 Paroxetine 20 Mg Tablet PO 40 mg DAILY ALEX Administration Perflutren Lipid Microsphere 0 ml 10/09/23 00:11 Perflutren Lipid Microspheres 1.5 Ml Vial Diluted To 10 Ml Total Volume IV PUSH 10/12/23 00:11 ONCE PRN adequate visualization Protocol Prednisone 40 mg 10/09/23 08:00 10/09/23 08:48 Prednisone 20 Mg Tablet PO 10/13/23 08:01 40 mg DAILY@0800 ALEX Administration Rifaximin 550 mg 10/08/23 21:00 10/09/23 20:27 Rifaximin 550 Mg Tablet PO 550 mg Q12H ALEX Administration Fluticasone/Salmeterol 2 puff 10/09/23 09:00 10/10/23 07:50 Fluticasone/Salmeterol 115-21 Mcg Inhaler 1 Puff INHALATION 2 puff Q12HR ALEX Administration Spironolactone 50 mg 10/09/23 09:00 10/09/23 08:51 Spironolactone 25 Mg Tablet PO 50 mg DAILY ALEX Administration Sucralfate 1 gm 10/09/23 09:00 10/09/23 17:52 Sucralfate 1 Gm Tablet PO 1 gm BID ALEX Administration Tamsulosin HCl 0.4 mg 10/08/23 21:00 10/09/23 20:27 Tamsulosin Hcl 0.4 Mg Capsule PO 0.4 mg HS ALEX Administration Triamcinolone Acetonide 1 applic 10/08/23 20:40 Triamcinolone Acet 0.5% Cream 15 Gm Tube TOPICAL BID PRN Rash Umeclidinium [place] 1 puff 10/09/23 09:00 10/09/23 07:00 Umeclidinium [place] 62.5 Mcg Ellipta INHALATION 11/08/23 08:59 1 puff DAILY ALEX Administration Radiology Results: ITS Impressions Head CT 10/08/23 14:08 IMPRESSION: No acute intracranial findings. Chest X-Ray 10/08/23 14:14 IMPRESSION: Bibasilar pneumonia more on the left side. Bilateral interstitial thickening suggestive of pneumonitis versus pulmonary edema. Chest CTA 10/08/23 22:43 IMPRESSION: 1. No pulmonary embolus. Sensitivity is moderately decreased by motion artifact. 2. Diffuse lung disease, consistent with pulmonary edema versus atypical pneumonia. 3. Cirrhosis of the liver. 4. T12 burst fracture, likely subacute or chronic. Labs Labs: Laboratory Results - last 24 hr 10/09/23 10/09/23 10/09/23 10:45 11:41 15:52 WBC RBC Hgb Hct MCV MCH MCHC RDW Plt Count MPV Puncture Site Right brachial ABG pH 7.439 ABG pCO2 36.6 ABG pO2 71.3 L ABG PO2/FiO2 Ratio 1.11 ABG HCO3 24.2 ABG O2 Saturation 95.0 ABG O2 Content 18.4 ABG Base Excess 0.4 A-a Gradient 345.1 Oxyhemoglobin 94.7 Total Hemoglobin 13.8 O2 Delivery Device High flow nasal issa O2 Liters/Min 11.0 FiO2 64 Sodium Potassium Chloride Carbon Dioxide Anion Gap BUN Creatinine Estim Creat Clear Calc Estimated GFR Glucose POC Capillary Glucose 176 H 161 H Calcium Total Bilirubin AST ALT Alkaline Phosphatase Total Protein Albumin 10/09/23 10/10/23 10/10/23 20:01 03:34 07:39 WBC 23.8 H RBC 4.31 Hgb 13.1 Hct 39.6 MCV 91.9 MCH 30.4 MCHC 33.1 RDW 13.0 Plt Count 217 MPV 11.6 H Puncture Site ABG pH ABG pCO2 ABG pO2 ABG PO2/FiO2 Ratio ABG HCO3 ABG O2 Saturation ABG O2 Content ABG Base Excess A-a Gradient Oxyhemoglobin Total Hemoglobin O2 Delivery Device O2 Liters/Min FiO2 Sodium 132 L Potassium 5.1 H Chloride 99 Carbon Dioxide 23 Anion Gap 10 BUN 23 H D Creatinine 1.10 H Estim Creat Clear Calc 48 Estimated GFR 51 L Glucose 130 H POC Capillary Glucose 133 H 113 H Calcium 9.3 Total Bilirubin 0.6 AST 24 ALT 15 Alkaline Phosphatase 184 H Total Protein 7.0 Albumin 4.0
[2023-10-10] MEDS: SUCRALFATE 1 GM TABLET PO ×2 (08:58→17:21)
[2023-10-10] MEDS: SPIRONOLACTONE 25 MG TABLET 50 MG PO (08:58)
[2023-10-10] MEDS: MECLIZINE HCL 25 MG TABLET PO ×3 (08:59→17:21)
[2023-10-10] MEDS: rifAXIMin 550 MG TABLET PO ×2 (08:59→20:51)
[2023-10-10] MEDS: hydrALAZINE 10 MG TABLET PO ×2 (08:59→17:21)
[2023-10-10] MEDS: LORATADINE 10 MG TABLET PO (08:59)
[2023-10-10] MEDS: MONTELUKAST SODIUM 10 MG TABLET PO (08:59)
[2023-10-10] MEDS: PANTOPRAZOLE 40 MG TABLET PO (08:59)
[2023-10-10] MEDS: PARoxetine 20 MG TABLET 40 MG PO (08:59)
[2023-10-10] MEDS: ATORVASTATIN 40 MG TABLET PO (09:00)
[2023-10-10] MEDS: FOLIC ACID 1 MG TABLET PO (09:00)
[2023-10-10] MEDS: predniSONE 20 MG TABLET 40 MG PO (09:00)
[2023-10-10] MEDS: FAMOTIDINE 20 MG TABLET PO (09:00)
[2023-10-10] MEDS: BACLOFEN 10 MG TABLET PO ×2 (09:00→17:21)
[2023-10-10] MEDS: busPIRone HCL 2.5 MG TABLET PO ×2 (09:00→17:21)
[2023-10-10] MEDS: busPIRone HCL 5 MG TABLET PO ×2 (09:00→17:21)
[2023-10-10] MEDS: buPROPion HCL SR (12 HR) 150 MG TAB PO (09:00)
[2023-10-10 09:23] LABS: NT Pro B Type Natriuretic Pept 1390 pg/mL (19.9-100)
[2023-10-10] MEDS: ENOXAPARIN 40 MG/0.4 ML SYRINGE SUB-Q (10:22)
[2023-10-10] MEDS: AZITHROMYCIN 500 MG/NS 250 ML 500 MG/250 ML BAG 250 MG IVPB (11:56)
[2023-10-10 12:50] LABS: Glucose Point of Care 131 mg/dl (65-105)
[2023-10-10] MEDS: FUROSEMIDE INJ 40 MG/4 ML VIAL IV PUSH (13:45)
[2023-10-10 15:42] LABS: Osmolality, Urine 266 mOsm/kg (50-1200)
[2023-10-10 16:45] LABS: Glucose Point of Care 169 mg/dl (65-105)
--- NOTE | 2023-10-10 19:28 | PM.PNPUL ---
Progress Note: A&P Assessment and Plan (1) COPD (chronic obstructive pulmonary disease): Code(s): J44.9 - Chronic obstructive pulmonary disease, unspecified Status: Acute Assessment and Plan: Longstanding COPD, home meds include Advair 250/50, Spiriva HandiHaler 18 mcg per day, albuterol nebulized and albuterol inhaler, montelukast. No prior pulmonary function test in our system. (2) Acute hypoxemic respiratory failure: Code(s): J96.01 - Acute respiratory failure with hypoxia Status: Acute Assessment and Plan: Not on O2 at home, rapidly increasing need for oxygen after admission and was around 11 liters/minute before switching to Airvo which is much more comfortable and has been able to be weaned. (3) Bilateral pneumonia: Code(s): J18.9 - Pneumonia, unspecified organism Status: Acute Assessment and Plan: Left greater than right infiltrates on chest CT with symptoms compatible with community-acquired pneumonia with increasing O2 demands. Initial viral swab for viral pathogens negative. Agree with current treatment regimen. Investigative studies are pending. (4) Tobacco abuse: Code(s): Z72.0 - Tobacco use Status: Acute Assessment and Plan: Current tobacco smoking up until admission, tobacco cessation is critical for long-term management and improvement. Patient will go home with tobacco cessation information. Subjective Date/time seen: 10/10/23 19:28 Interval history: 10/10/2023, new consult. Analilia Montgomery is a 57-yo female with COPD, smoking history now a half pack per day, admitted with increased shortness of breath over 2 days, chest tightness, increased use of inhalers; ,WBC 20.2K, CTA with no PE, she had bilateral ground glass opacities consistent with bilateral pneumonia, L>R; has no sputum to test; had Rapid Response overnight October 07 to ; O2 need increased. She was transferred to IMU Room , felt better after treatment with AirVo, 20 L/min and 47% FiO2; feels less short of breath. She has a cough with small amounts of sputum. O2 flow has been weaned during the day. PMH: COPD, diabetes, hypertension, hyperlipidemia, hypothyroidism presenting with shortness of breath DATA * 10/08/23; CTA = FINDINGS: There are groundglass opacities and crazy paving involving all lobes. A calcified right lung nodule is consistent with old granulomatous disease. No pleural effusion. The heart size is normal. There are coronary artery calcifications. No pericardial effusion. There is no pulmonary embolus. The liver demonstrates surface nodularity, consistent with cirrhosis. There are gallstones in the gallbladder. There is severe thoracic spondylosis. There is a burst fracture of T12 with 2/5 loss of height and retropulsion of bone 3 mm into central spinal canal. IMPRESSION: 1. No pulmonary embolus. Sensitivity is moderately decreased by motion artifact. 2. Diffuse lung disease, consistent with pulmonary edema versus atypical pneumonia. 3. Cirrhosis of the liver. 4. T12 burst fracture, likely subacute or chronic. * 10/09/2023 echo;Complete two-dimensional, color flow and Doppler transthoracic echocardiogram is performed. 2. Left ventricular chamber dimension is normal. 3. Left ventricular systolic function is hyperdynamic, estimated at >70%. 4. There is mildly increased left ventricular wall thickness. 5. The left ventricular diastolic function is grade I diastolic dysfunction. 6. There is mild tricuspid valve regurgitation. * 10/08/2023 ABG Review of Systems Review of Systems: All systems reviewed & are unremarkable except as noted in HPI and below Exam Narrative: GEN: Alert, oriented, mild to moderate increased respiratory effort, wearing AirVo O2 at 20 L/min and 47%. resting comfortably in bed HEENT: pupils are equal, EOMI, symmetrical face; oral membranes moist, NECK: Trachea is midline CHEST: Equal air entry, symmetric excursion, less muscle use, hyperinflated thorax, decreased breath sounds, cleare, no wheezes or crackles CV: Tachycardic S1S2; 110 bpm ABD : (+) bowel sounds Extremities : no clubbing, cyanosis, or edema, thin ankles. No rashes. No calf tenderness. Skin is warm and dry. PSYCH: normal thought. Speech is not labored however she is still speaking in short sentences. Objective Data Vital Signs Vital Signs: Vital Signs - 24 hr 10/09/23 20:00 10/09/23 20:00 10/09/23 20:00 Temperature 36.6 C Pulse Rate 108 H 108 H 107 H Respiratory Rate 23 H 23 H Blood Pressure 120/82 Pulse Oximetry 100 100 Oxygen Delivery High Flow Therapy with Na Oxygen Flow Rate 30 Fraction of Inspired Oxygen 70 10/09/23 22:00 10/09/23 20:48 10/09/23 20:50 Temperature Pulse Rate 101 H 104 H Respiratory Rate 22 H Blood Pressure Pulse Oximetry 100 Oxygen Delivery High Flow Therapy with Na Oxygen Flow Rate 30 Fraction of Inspired Oxygen 70 10/09/23 21:02 10/09/23 23:45 10/09/23 23:46 Temperature 36.5 C Pulse Rate 108 H 101 H 106 H Respiratory Rate 22 H 22 H 23 H Blood Pressure 153/72 H Pulse Oximetry 100 99 Oxygen Delivery High Flow Therapy with Na Oxygen Flow Rate 30 Fraction of Inspired Oxygen 70 10/10/23 00:00 10/10/23 02:14 10/10/23 02:00 Temperature Pulse Rate 104 H 102 H 106 H Respiratory Rate 20 Blood Pressure Pulse Oximetry Oxygen Delivery Oxygen Flow Rate Fraction of Inspired Oxygen 10/10/23 03:50 10/10/23 04:00 10/10/23 04:00 Temperature 36.8 C Pulse Rate 102 H 102 H 101 H Respiratory Rate 20 22 H Blood Pressure 132/72 Pulse Oximetry 99 98 Oxygen Delivery High Flow Therapy with Na Oxygen Flow Rate 30 Fraction of Inspired Oxygen 70 10/10/23 06:00 10/10/23 02:24 10/09/23 21:25 Temperature Pulse Rate 109 H 106 H Respiratory Rate 20 Blood Pressure Pulse Oximetry 98 Oxygen Delivery High Flow Therapy with Na Oxygen Flow Rate 30 Fraction of Inspired Oxygen 6 10/10/23 07:51 10/10/23 07:51 10/10/23 08:03 Temperature Pulse Rate 128 H 104 H Respiratory Rate 20 20 Blood Pressure Pulse Oximetry 98 Oxygen Delivery High Flow Therapy with Na Oxygen Flow Rate 30 Fraction of Inspired Oxygen 60 10/10/23 08:00 10/10/23 08:14 10/10/23 08:00 Temperature 36.0 C L Pulse Rate 107 H 106 H Respiratory Rate 26 H Blood Pressure 119/54 L Pulse Oximetry 95 95 Oxygen Delivery High Flow Therapy with Na Oxygen Flow Rate 30 Fraction of Inspired Oxygen 45 10/10/23 08:30 10/10/23 10:00 10/10/23 11:20 Temperature Pulse Rate 107 H Respiratory Rate Blood Pressure Pulse Oximetry 93 94 Oxygen Delivery High Flow Therapy with Na High Flow Therapy with Na Oxygen Flow Rate 30 30 Fraction of Inspired Oxygen 45 45 10/10/23 11:43 10/10/23 12:00 10/10/23 12:00 Temperature 36.1 C L Pulse Rate 111 H 116 H Respiratory Rate 22 H Blood Pressure 128/66 Pulse Oximetry 96 96 Oxygen Delivery High Flow Therapy with Na Oxygen Flow Rate 30 Fraction of Inspired Oxygen 45 10/10/23 13:28 10/10/23 13:28 10/10/23 13:40 Temperature Pulse Rate 113 H 113 H 118 H Respiratory Rate 24 H 24 H 20 Blood Pressure Pulse Oximetry 99 Oxygen Delivery High Flow Therapy with Na Oxygen Flow Rate 30 Fraction of Inspired Oxygen 45 10/10/23 14:13 10/10/23 14:00 10/10/23 16:00 Temperature Pulse Rate 121 H 121 H Respiratory Rate 24 H Blood Pressure Pulse Oximetry 85 L 94 Oxygen Delivery High Flow Therapy with Na High Flow Therapy with Na Oxygen Flow Rate 20 20 Fraction of Inspired Oxygen 35 45 10/10/23 15:51 10/10/23 16:00 10/10/23 18:00 Temperature 36.1 C L Pulse Rate 117 H 119 H 112 H Respiratory Rate 20 Blood Pressure 147/86 H Pulse Oximetry 94 Oxygen Delivery Oxygen Flow Rate Fraction of Inspired Oxygen Intake/Output Intake/Output: Intake & Output 07/09/24 07/10/24 07/11/24 07/12/24 23:59 23:59 23:59 23:59 Intake Total 1350 1040 1590 Output Total 800 1700 1500 Balance 550 -660 90 Meds/Results Medications: Active Medications Generic Name Dose Route Start Last Admin Trade Name Freq PRN Reason Stop Dose Admin Acetaminophen 500 mg 10/08/23 16:27 Acetaminophen 500 Mg Tablet PO Q6H PRN Mild Pain (1-3) or Fever Albuterol 2 puff 10/08/23 20:40 Albuterol Sulfate (*Sp) Aerosol 1 Puff INHALATION Q4HRT PRN sob Albuterol/Ipratropium 3 ml 10/08/23 20:00 10/10/23 13:27 Ipratropium 0.5 Mg/Albuterol Sulfate 2.5 Mg Ampul.Neb 3 Ml INHALATION 3 ml Q6HRT ALEX Administration Atorvastatin Calcium 40 mg 10/09/23 09:00 10/10/23 09:00 Atorvastatin 40 Mg Tablet PO 40 mg DAILY ALEX Administration Baclofen 10 mg 10/09/23 09:00 10/10/23 17:21 Baclofen 10 Mg Tablet PO 10 mg BID ALEX Administration Benzocaine 1 lozenge 10/08/23 16:26 Benzocaine/Menthol (*Bkc) 18 Ea Lozenge PO PRN PRN Sore Throat Benzonatate 100 mg 10/08/23 16:26 10/09/23 17:52 Benzonatate 100 Mg Capsule PO 100 mg TID PRN Administration Cough Bupropion HCl 150 mg 10/09/23 09:00 10/10/23 09:00 Bupropion Hcl Sr (12 Hr) 150 Mg Tab PO 150 mg DAILY ALEX Administration Buspirone HCl 2.5 mg 10/09/23 09:00 10/10/23 17:21 Buspirone Hcl 2.5 Mg Tablet PO 11/08/23 08:59 2.5 mg BID ALEX Administration Buspirone HCl 5 mg 10/09/23 09:00 10/10/23 17:21 Buspirone Hcl 5 Mg Tablet PO 5 mg BID ALEX Administration Celecoxib 200 mg 10/08/23 20:40 Celecoxib 200 Mg Capsule PO BID PRN Pain Dextrose 12.5 gm 10/08/23 20:40 Dextrose 50% 25 Gm/50 Ml Syringe IV PUSH PRN PRN Hypoglycemia Protocol Enoxaparin Sodium 40 mg 10/10/23 09:00 10/10/23 10:22 Enoxaparin 40 Mg/0.4 Ml Syringe SUB-Q 40 mg DAILY ALEX Administration Famotidine 20 mg 10/09/23 09:00 10/10/23 09:00 Famotidine 20 Mg Tablet PO 20 mg DAILY ALEX Administration Folic Acid 1 mg 10/09/23 09:00 10/10/23 09:00 Folic Acid 1 Mg Tablet PO 1 mg DAILY ALEX Administration Glucagon 1 mg 10/08/23 20:40 Glucagon For Inj 1 Mg Vial IM PRN PRN Hypoglycemia Protocol Glucose 15 gm 10/08/23 20:40 Glucose Oral Gel 15 Gm Of Glucse In 37.5 Gm Tube PO PRN PRN Hypoglycemia Protocol Hydralazine HCl 10 mg 10/09/23 09:00 10/10/23 17:21 Hydralazine 10 Mg Tablet PO 10 mg BID ALEX Administration Ceftriaxone Sodium 1 gm in 50 mls @ 100 mls/hr 10/09/23 15:00 10/10/23 15:10 Rocephin 1 Gm/Ns 50 Ml IVPB 100 mls/hr Q24H ALEX Administration Azithromycin 500 mg in 250 mls @ 250 mls/hr 10/09/23 12:00 10/10/23 13:00 Zithromax IVPB Infused Q24H ALEX Infusion Dextrose 1,000 mls @ 100 mls/hr 10/08/23 20:40 Dextrose 5% 1,000 Ml IVPB PRN PRN Hypoglycemia Protocol Insulin Aspart 2 - 5 units 10/09/23 08:00 10/10/23 16:48 Insulin Aspart (*Bkc) 100 Units/Ml SUB-Q Not Given TIDWM ALEX Protocol Levothyroxine Sodium 100 mcg 10/09/23 06:30 10/10/23 06:05 Levothyroxine Sodium 100 Mcg Tablet PO 100 mcg DAILY@0630 ALEX Administration Lisinopril 20 mg 10/08/23 21:00 10/09/23 20:27 Lisinopril 20 Mg Tablet PO 20 mg HS ALEX Administration Loratadine 10 mg 10/09/23 09:00 10/10/23 08:59 Loratadine 10 Mg Tablet PO 11/08/23 08:59 10 mg DAILY ALEX Administration Meclizine HCl 25 mg 10/09/23 09:00 10/10/23 17:21 Meclizine Hcl 25 Mg Tablet PO 25 mg TID ALEX Administration Montelukast Sodium 10 mg 10/11/23 21:00 Montelukast Sodium 10 Mg Tablet PO HS ALEX Ondansetron HCl 4 mg 10/08/23 20:40 10/09/23 17:52 Ondansetron Hcl Odt 4 Mg Tablet PO 4 mg Q6H PRN Administration Nausea Pantoprazole Sodium 40 mg 10/09/23 09:00 10/10/23 08:59 Pantoprazole 40 Mg Tablet PO 40 mg DAILY ALEX Administration Paroxetine HCl 40 mg 10/09/23 09:00 10/10/23 08:59 Paroxetine 20 Mg Tablet PO 40 mg DAILY ALEX Administration Perflutren Lipid Microsphere 0 ml 10/09/23 00:11 Perflutren Lipid Microspheres 1.5 Ml Vial Diluted To 10 Ml Total Volume IV PUSH 10/12/23 00:11 ONCE PRN adequate visualization Protocol Prednisone 40 mg 10/09/23 08:00 10/10/23 09:00 Prednisone 20 Mg Tablet PO 10/13/23 08:01 40 mg DAILY@0800 ALEX Administration Rifaximin 550 mg 10/08/23 21:00 10/10/23 08:59 Rifaximin 550 Mg Tablet PO 550 mg Q12H ALEX Administration Fluticasone/Salmeterol 2 puff 10/09/23 09:00 10/10/23 07:50 Fluticasone/Salmeterol 115-21 Mcg Inhaler 1 Puff INHALATION 2 puff Q12HR ALEX Administration Spironolactone 50 mg 10/09/23 09:00 10/10/23 08:58 Spironolactone 25 Mg Tablet PO 50 mg DAILY ALEX Administration Sucralfate 1 gm 10/09/23 09:00 10/10/23 17:21 Sucralfate 1 Gm Tablet PO 1 gm BID ALEX Administration Tamsulosin HCl 0.4 mg 10/08/23 21:00 10/09/23 20:27 Tamsulosin Hcl 0.4 Mg Capsule PO 0.4 mg HS ALEX Administration Triamcinolone Acetonide 1 applic 10/08/23 20:40 Triamcinolone Acet 0.5% Cream 15 Gm Tube TOPICAL BID PRN Rash Umeclidinium [place] 1 puff 10/09/23 09:00 10/10/23 07:50 Umeclidinium [place] 62.5 Mcg Ellipta INHALATION 11/08/23 08:59 Not Given DAILY [facility] [place] Radiology Results: ITS Impressions Head CT 10/08/23 14:08 IMPRESSION: No acute intracranial findings. Chest CTA 10/08/23 22:43 IMPRESSION: 1. No pulmonary embolus. Sensitivity is moderately decreased by motion artifact. 2. Diffuse lung disease, consistent with pulmonary edema versus atypical pneumonia. 3. Cirrhosis of the liver. 4. T12 burst fracture, likely subacute or chronic. Chest X-Ray 10/10/23 10:57 Impression: Bibasilar airspace disease, left worse than right. Correlate for bibasilar pulmonary edema/atelectasis versus pneumonia. Labs Labs: Laboratory Results - last 24 hr 10/09/23 10/09/23 10/10/23 02:30 20:01 03:31 WBC RBC Hgb Hct MCV MCH MCHC RDW Plt Count MPV Sodium Potassium Chloride Carbon Dioxide Anion Gap BUN Creatinine Estim Creat Clear Calc Estimated GFR Glucose POC Capillary Glucose 133 H Calcium Total Bilirubin AST ALT Alkaline Phosphatase NT-Pro-B Natriuret Pep 1390 H Total Protein Albumin Urine Osmolality 266 10/10/23 10/10/23 10/10/23 03:34 07:39 11:46 WBC 23.8 H RBC 4.31 Hgb 13.1 Hct 39.6 MCV 91.9 MCH 30.4 MCHC 33.1 RDW 13.0 Plt Count 217 MPV 11.6 H Sodium 132 L Potassium 5.1 H Chloride 99 Carbon Dioxide 23 Anion Gap 10 BUN 23 H D Creatinine 1.10 H Estim Creat Clear Calc 48 Estimated GFR 51 L Glucose 130 H POC Capillary Glucose 113 H 131 H Calcium 9.3 Total Bilirubin 0.6 AST 24 ALT 15 Alkaline Phosphatase 184 H NT-Pro-B Natriuret Pep Total Protein 7.0 Albumin 4.0 Urine Osmolality 10/10/23 15:47 WBC RBC Hgb Hct MCV MCH MCHC RDW Plt Count MPV Sodium Potassium Chloride Carbon Dioxide Anion Gap BUN Creatinine Estim Creat Clear Calc Estimated GFR Glucose POC Capillary Glucose 169 H Calcium Total Bilirubin AST ALT Alkaline Phosphatase NT-Pro-B Natriuret Pep Total Protein Albumin Urine Osmolality
[2023-10-10 19:59] LABS: Glucose Point of Care 150 mg/dl (65-105)
[2023-10-10] MEDS: lisinopriL 20 MG TABLET PO (20:51)
[2023-10-10] MEDS: TAMSULOSIN HCL 0.4 MG CAPSULE PO (20:51)
[2023-10-11] VITALS (25 sets, daily range): BP systolic 113–135; BP diastolic 54–74; PULSE 94–116; RESP 18–26; TEMP 36.1–36.4; O2SAT 94–100
[2023-10-11] MEDS: IPRATROPIUM 0.5 MG/ALBUTEROL SULFATE 2.5 MG AMPUL.NEB 3 ML INHALATION ×4 (02:22→20:28)
[2023-10-11 05:41] LABS: Basophils Percent Auto 0.1 % (0.2-1.2); Eosinophils Percent Auto 0.2 % (0-4.4); Hematocrit 39.5 % (37.0-47.0); Hemoglobin 13.1 g/dL (12.0-15.0); Immature Granulocyte Percent A 0.6 % (0-0.5); Lymphocytes Absolute Auto 1.15 K/mm3 (0.9-3.2); Lymphocytes Percent Auto 7.2 % (18.3-44.2); Mean Corpuscular HGB Conc 33.2 g/dl (32-36); Mean Corpuscular Hemoglobin 30.5 pg (26-34); Mean Corpuscular Volume 91.9 fl (80-100); Mean Platelet Volume 11.2 fl (7.4-10.4); Monocytes Absolute Auto 1.1 K/mm3 (0.1-0.6); Monocytes Percent Auto 6.6 % (2.6-8.5); Neutrophils Absolute Auto 13.6 K/mm3 (1.3-6.7); Neutrophils Percent Auto 85.3 % (45.5-73.1); Platelet Count Result 223 k/mm3 (150-375); Red Cell Distribution Width 12.9 % (11.5-14.5); White Blood Count 15.9 K/mm3 (4.5-10.0)
[2023-10-11 05:55] LABS: Alanine Aminotransferase 17 U/L (6-35); Alkaline Phosphatase 171 U/L (38-126); Anion Gap 14 mmol/L (4-12); Aspartate Amino Transferase 24 U/L (14-36); Bilirubin,Total 0.6 mg/dL (0.2-1.3); Blood Urea Nitrogen 29 mg/dL (7-17); Calcium 9.3 mg/dL (8.4-10.2); Carbon Dioxide 26 mmol/L (22-30); Chloride 94 mmol/L (98-107); Estimated CRCL calculation 41 ml/min; Estimated Glomerular Filt Rate 42; Glucose 106 mg/dL (65-110); Potassium 4.1 mmol/L (3.4-5.0); Sodium 134 mmol/L (137-145)
[2023-10-11] MEDS: LEVOTHYROXINE SODIUM 100 MCG TABLET PO (06:06)
[2023-10-11] MEDS: FLUTICASONE/SALMETEROL 115-21 MCG INHALER 1 PUFF 2 PUFF INHALATION ×2 (07:20→20:28)
[2023-10-11] MEDS: UMECLIDINIUM BROMIDE 62.5 MCG ELLIPTA 1 PUFF INHALATION (07:20)
[2023-10-11 08:57] LABS: Glucose Point of Care 102 mg/dl (65-105)
[2023-10-11] MEDS: rifAXIMin 550 MG TABLET PO ×2 (10:51→20:14)
[2023-10-11] MEDS: hydrALAZINE 10 MG TABLET PO ×2 (10:51→17:45)
[2023-10-11] MEDS: ATORVASTATIN 40 MG TABLET PO (10:51)
[2023-10-11] MEDS: BACLOFEN 10 MG TABLET PO ×2 (10:51→17:45)
[2023-10-11] MEDS: busPIRone HCL 2.5 MG TABLET PO ×2 (10:51→17:45)
[2023-10-11] MEDS: MECLIZINE HCL 25 MG TABLET PO ×3 (10:51→17:45)
[2023-10-11] MEDS: PARoxetine 20 MG TABLET 40 MG PO (10:51)
[2023-10-11] MEDS: buPROPion HCL SR (12 HR) 150 MG TAB PO (10:51)
[2023-10-11] MEDS: FOLIC ACID 1 MG TABLET PO (10:52)
[2023-10-11] MEDS: PANTOPRAZOLE 40 MG TABLET PO (10:52)
[2023-10-11] MEDS: SUCRALFATE 1 GM TABLET PO ×2 (10:52→17:45)
[2023-10-11] MEDS: LORATADINE 10 MG TABLET PO (10:52)
[2023-10-11] MEDS: FAMOTIDINE 20 MG TABLET PO (10:52)
[2023-10-11] MEDS: SPIRONOLACTONE 25 MG TABLET 50 MG PO (10:52)
[2023-10-11] MEDS: busPIRone HCL 5 MG TABLET PO ×2 (10:52→17:45)
[2023-10-11] MEDS: ENOXAPARIN 40 MG/0.4 ML SYRINGE SUB-Q (10:53)
[2023-10-11] MEDS: predniSONE 20 MG TABLET 40 MG PO (10:55)
[2023-10-11 12:00] LABS: Glucose Point of Care 117 mg/dl (65-105)
--- NOTE | 2023-10-11 12:00 | PC.NURSE ---
Pt's oxygen level decreased this morning with sleep. She was asymptomatic. AIRVO adjusted, RT notified. O2 level now WNL. PT. educated on the benefits of wearing BIPAP during sleep but refuses BIPAP due to claustrophobia.
--- NOTE | 2023-10-11 13:00 | PM.IMPN ---
Progress Note: A&P Assessment and Plan (1) Bilateral pneumonia: Code(s): J18.9 - Pneumonia, unspecified organism Status: Acute (2) COPD (chronic obstructive pulmonary disease): Code(s): J44.9 - Chronic obstructive pulmonary disease, unspecified Status: Acute (3) Somnolence: Code(s): R40.0 - Somnolence Status: Acute (4) Diabetes: Qualifiers: Diabetes mellitus type: type 2 Diabetes mellitus skilled nursing insulin use: with skilled nursing use Diabetes mellitus complication status: without complication Qualified Code(s): E11.9 - Type 2 diabetes mellitus without complications; Z79.4 - correction (current) use of insulin Code(s): E11.9 - Type 2 diabetes mellitus without complications Status: Chronic Plan Patient presented with shortness of breath. Remains on high-flow Oxygen.mild tachycardia persist. Labs reviewed leukocytosis persist. ABG with no hypercapnia. Troponin negative x 3. MRSA nares negative. Influenza RSV COVID negative. Mycoplasma Legionella, pneumococcal antigen pending. Chest x-ray with bilateral pneumonia more on the left side. Bilateral interstitial thickening suggestive of pneumonitis versus pulmonary edema. CTA chest with no PE diffuse lung disease consistent with pulmonary edema versus atypical pneumonia cirrhosis of liver and T12 burst fracture likely subacute or chronic. Blood culture x2 negative. Echo 10/09/2023 EF more than 70% mildly increased left ventricular wall thickness grade 1 diastolic dysfunction mild TR. hypoxic respiratory failure with rapid worsening on admission needing BiPAP now has been titrated down to high-flow oxygen supplementation. On ceftriaxone and azithromycin and prednisone. BNP was 113 repeat BNP elevated. Received a dose of Lasix 10/10/2023. Add incentive spirometry and Mucinex History of COPD. Possible COPD exacerbation on presentation was diffuse expiratory wheezing. Pulmonary has been consulted. On prednisone. Hyponatremia on admission 126 slowly improving Diabetes Hypertension Hyperlipidemia Hypothyroidism cirrhosis of liver Anxiety/depression Current smoker DVT prophylaxis add Lovenox Code status full code Subjective Date/time seen: 10/11/23 13:00 Interval history: feels better. No new complaints. No overnight events. Currently on 30 liter/minute 54% FiO2. Saturating better on this though no leg swelling. Review of Systems Review of Systems: All systems reviewed & are unremarkable except as noted in HPI and below Exam Narrative: GENERAL: Ill-appearing in no acute distress. Well-nourished. On Airvo - EYES: EOMI. Anicteric. - HENT: Moist mucous membranes. - LUNGS: Coarse breath sound bilaterally, mild wheezing end-expiratory - CARDIOVASCULAR: Mild tachycardia sinus on tele. No murmur. No JVD. - ABDOMEN: Soft, non-tender and non-distended. No palpable masses. - EXTREMITIES: No edema. Peripheral pulses 2+. Non-tender. - NEUROLOGIC: No focal neurological deficits. CN II-XII grossly intact. - PSYCHIATRIC: Awake, Alert and oriented x 3. Appropriate mood and affect. - SKIN: No rashes or lesions. Warm. - LYMPH: No cervical lymphadenopathy. Objective Data Vital Signs Vital Signs: Vital Signs - 24 hr 10/10/23 13:28 10/10/23 13:28 10/10/23 13:40 Temperature Pulse Rate 113 H 113 H 118 H Respiratory Rate 24 H 24 H 20 Blood Pressure Pulse Oximetry 99 Oxygen Delivery High Flow Therapy with Na Oxygen Flow Rate 30 Fraction of Inspired Oxygen 45 10/10/23 14:13 10/10/23 14:00 10/10/23 16:00 Temperature Pulse Rate 121 H 121 H Respiratory Rate 24 H Blood Pressure Pulse Oximetry 85 L 94 Oxygen Delivery High Flow Therapy with Na High Flow Therapy with Na Oxygen Flow Rate 20 20 Fraction of Inspired Oxygen 35 45 10/10/23 15:51 10/10/23 16:00 10/10/23 18:00 Temperature 96.9 F L Pulse Rate 117 H 119 H 112 H Respiratory Rate 20 Blood Pressure 147/86 H Pulse Oximetry 94 Oxygen Delivery Oxygen Flow Rate Fraction of Inspired Oxygen 10/10/23 19:38 10/10/23 20:00 10/10/23 20:03 Temperature 97.6 F Pulse Rate 109 H 107 H 107 H Respiratory Rate 21 H 22 H Blood Pressure 141/82 H Pulse Oximetry 94 93 Oxygen Delivery High Flow Therapy with Na Oxygen Flow Rate 20 Fraction of Inspired Oxygen 46 10/10/23 20:14 10/10/23 20:00 10/10/23 20:00 Temperature Pulse Rate 107 H 109 H 109 H Respiratory Rate 22 H 21 H Blood Pressure Pulse Oximetry 94 Oxygen Delivery High Flow Therapy with Na Oxygen Flow Rate 20 Fraction of Inspired Oxygen 50 10/10/23 22:00 10/10/23 23:56 10/11/23 00:00 Temperature 97.6 F Pulse Rate 111 H 104 H 104 H Respiratory Rate 24 H 24 H Blood Pressure 108/51 L Pulse Oximetry 100 100 Oxygen Delivery High Flow Therapy with Na Oxygen Flow Rate 20 Fraction of Inspired Oxygen 47 10/11/23 00:00 10/11/23 01:41 10/11/23 02:22 Temperature Pulse Rate 99 100 101 H Respiratory Rate 22 H Blood Pressure Pulse Oximetry Oxygen Delivery Oxygen Flow Rate Fraction of Inspired Oxygen 10/11/23 02:22 10/11/23 02:30 10/11/23 04:12 Temperature 97 F L Pulse Rate 101 H 104 H 101 H Respiratory Rate 24 H 20 Blood Pressure 135/62 Pulse Oximetry 94 97 Oxygen Delivery High Flow Therapy with Na Oxygen Flow Rate 20 Fraction of Inspired Oxygen 46 10/11/23 04:00 10/11/23 04:00 10/11/23 05:52 Temperature Pulse Rate 101 H 103 H 109 H Respiratory Rate 20 Blood Pressure Pulse Oximetry 97 Oxygen Delivery High Flow Therapy with Na Oxygen Flow Rate 20 Fraction of Inspired Oxygen 45 10/11/23 07:20 10/11/23 07:20 10/11/23 07:29 Temperature Pulse Rate 104 H 106 H Respiratory Rate 24 H 24 H Blood Pressure Pulse Oximetry 94 Oxygen Delivery High Flow Therapy with Na Oxygen Flow Rate 20 Fraction of Inspired Oxygen 41 10/11/23 08:02 10/11/23 11:28 Temperature 96.9 F L 97 F L Pulse Rate 104 H 112 H Respiratory Rate 20 25 H Blood Pressure 127/74 113/68 Pulse Oximetry 95 96 Oxygen Delivery Oxygen Flow Rate Fraction of Inspired Oxygen Intake/Output Intake/Output: Intake & Output 10/08/23 10/09/23 10/10/23 10/11/23 23:59 23:59 23:59 23:59 Intake Total 1350 1040 1640 350 Output Total 800 1700 1500 1000 Balance 550 -660 140 -650 Meds/Results Medications: Active Medications Generic Name Dose Route Start Last Admin Trade Name Freq PRN Reason Stop Dose Admin Acetaminophen 500 mg 10/08/23 16:27 Acetaminophen 500 Mg Tablet PO Q6H PRN Mild Pain (1-3) or Fever Albuterol 2 puff 10/08/23 20:40 Albuterol Sulfate (*Sp) Aerosol 1 Puff INHALATION Q4HRT PRN sob Albuterol/Ipratropium 3 ml 10/08/23 20:00 10/11/23 07:20 Ipratropium 0.5 Mg/Albuterol Sulfate 2.5 Mg Ampul.Neb 3 Ml INHALATION 3 ml Q6HRT ALEX Administration Atorvastatin Calcium 40 mg 10/09/23 09:00 10/11/23 10:51 Atorvastatin 40 Mg Tablet PO 40 mg DAILY ALEX Administration Baclofen 10 mg 10/09/23 09:00 10/11/23 10:51 Baclofen 10 Mg Tablet PO 10 mg BID ALEX Administration Benzocaine 1 lozenge 10/08/23 16:26 Benzocaine/Menthol (*Bkc) 18 Ea Lozenge PO PRN PRN Sore Throat Benzonatate 100 mg 10/08/23 16:26 10/09/23 17:52 Benzonatate 100 Mg Capsule PO 100 mg TID PRN Administration Cough Bupropion HCl 150 mg 10/09/23 09:00 10/11/23 10:51 Bupropion Hcl Sr (12 Hr) 150 Mg Tab PO 150 mg DAILY ALEX Administration Buspirone HCl 2.5 mg 10/09/23 09:00 10/11/23 10:51 Buspirone Hcl 2.5 Mg Tablet PO 11/08/23 08:59 2.5 mg BID ALEX Administration Buspirone HCl 5 mg 10/09/23 09:00 10/11/23 10:52 Buspirone Hcl 5 Mg Tablet PO 5 mg BID ALEX Administration Celecoxib 200 mg 10/08/23 20:40 Celecoxib 200 Mg Capsule PO BID PRN Pain Dextrose 12.5 gm 10/08/23 20:40 Dextrose 50% 25 Gm/50 Ml Syringe IV PUSH PRN PRN Hypoglycemia Protocol Enoxaparin Sodium 40 mg 10/10/23 09:00 10/11/23 10:53 Enoxaparin 40 Mg/0.4 Ml Syringe SUB-Q 40 mg DAILY ALEX Administration Famotidine 20 mg 10/09/23 09:00 10/11/23 10:52 Famotidine 20 Mg Tablet PO 20 mg DAILY ALEX Administration Folic Acid 1 mg 10/09/23 09:00 10/11/23 10:52 Folic Acid 1 Mg Tablet PO 1 mg DAILY ALEX Administration Glucagon 1 mg 10/08/23 20:40 Glucagon For Inj 1 Mg Vial IM PRN PRN Hypoglycemia Protocol Glucose 15 gm 10/08/23 20:40 Glucose Oral Gel 15 Gm Of Glucse In 37.5 Gm Tube PO PRN PRN Hypoglycemia Protocol Hydralazine HCl 10 mg 10/09/23 09:00 10/11/23 10:51 Hydralazine 10 Mg Tablet PO 10 mg BID ALEX Administration Ceftriaxone Sodium 1 gm in 50 mls @ 100 mls/hr 10/09/23 15:00 10/10/23 19:00 Rocephin 1 Gm/Ns 50 Ml IVPB Infused Q24H ALEX Infusion Azithromycin 500 mg in 250 mls @ 250 mls/hr 10/09/23 12:00 10/10/23 13:00 Zithromax IVPB Infused Q24H ALEX Infusion Dextrose 1,000 mls @ 100 mls/hr 10/08/23 20:40 Dextrose 5% 1,000 Ml IVPB PRN PRN Hypoglycemia Protocol Insulin Aspart 2 - 5 units 10/09/23 08:00 10/11/23 12:19 Insulin Aspart (*Bkc) 100 Units/Ml SUB-Q Not Given TIDWM ALEX Protocol Levothyroxine Sodium 100 mcg 10/09/23 06:30 10/11/23 06:06 Levothyroxine Sodium 100 Mcg Tablet PO 100 mcg DAILY@0630 ALEX Administration Lisinopril 20 mg 10/08/23 21:00 10/10/23 20:51 Lisinopril 20 Mg Tablet PO 20 mg HS ALEX Administration Loratadine 10 mg 10/09/23 09:00 10/11/23 10:52 Loratadine 10 Mg Tablet PO 11/08/23 08:59 10 mg DAILY ALEX Administration Meclizine HCl 25 mg 10/09/23 09:00 10/11/23 10:51 Meclizine Hcl 25 Mg Tablet PO 25 mg TID ALEX Administration Montelukast Sodium 10 mg 10/11/23 21:00 Montelukast Sodium 10 Mg Tablet PO HS ALEX Ondansetron HCl 4 mg 10/08/23 20:40 10/09/23 17:52 Ondansetron Hcl Odt 4 Mg Tablet PO 4 mg Q6H PRN Administration Nausea Pantoprazole Sodium 40 mg 10/09/23 09:00 10/11/23 10:52 Pantoprazole 40 Mg Tablet PO 40 mg DAILY ALEX Administration Paroxetine HCl 40 mg 10/09/23 09:00 10/11/23 10:51 Paroxetine 20 Mg Tablet PO 40 mg DAILY ALEX Administration Perflutren Lipid Microsphere 0 ml 10/09/23 00:11 Perflutren Lipid Microspheres 1.5 Ml Vial Diluted To 10 Ml Total Volume IV PUSH 10/12/23 00:11 ONCE PRN adequate visualization Protocol Prednisone 40 mg 10/09/23 08:00 10/11/23 10:55 Prednisone 20 Mg Tablet PO 10/13/23 08:01 40 mg DAILY@0800 ALEX Administration Rifaximin 550 mg 10/08/23 21:00 10/11/23 10:51 Rifaximin 550 Mg Tablet PO 550 mg Q12H ALEX Administration Fluticasone/Salmeterol 2 puff 10/09/23 09:00 10/11/23 07:20 Fluticasone/Salmeterol 115-21 Mcg Inhaler 1 Puff INHALATION 2 puff Q12HR ALEX Administration Spironolactone 50 mg 10/09/23 09:00 10/11/23 10:52 Spironolactone 25 Mg Tablet PO 50 mg DAILY ALEX Administration Sucralfate 1 gm 10/09/23 09:00 10/11/23 10:52 Sucralfate 1 Gm Tablet PO 1 gm BID ALEX Administration Tamsulosin HCl 0.4 mg 10/08/23 21:00 10/10/23 20:51 Tamsulosin Hcl 0.4 Mg Capsule PO 0.4 mg HS ALEX Administration Triamcinolone Acetonide 1 applic 10/08/23 20:40 Triamcinolone Acet 0.5% Cream 15 Gm Tube TOPICAL BID PRN Rash Umeclidinium [place] 1 puff 10/09/23 09:00 10/11/23 07:20 Umeclidinium [place] 62.5 Mcg Ellipta INHALATION 11/08/23 08:59 1 puff DAILY ALEX Administration Radiology Results: ITS Impressions Head CT 10/08/23 14:08 IMPRESSION: No acute intracranial findings. Chest CTA 10/08/23 22:43 IMPRESSION: 1. No pulmonary embolus. Sensitivity is moderately decreased by motion artifact. 2. Diffuse lung disease, consistent with pulmonary edema versus atypical pneumonia. 3. Cirrhosis of the liver. 4. T12 burst fracture, likely subacute or chronic. Chest X-Ray 10/10/23 10:57 Impression: Bibasilar airspace disease, left worse than right. Correlate for bibasilar pulmonary edema/atelectasis versus pneumonia. Labs Labs: Laboratory Results - last 24 hr 10/09/23 10/10/23 10/10/23 02:30 15:47 19:39 WBC RBC Hgb Hct MCV MCH MCHC RDW Plt Count MPV Immature Gran % (Auto) Neut % (Auto) Lymph % (Auto) [place] % (Auto) Eos % (Auto) Baso % (Auto) Lymph # (Auto) [place] # (Auto) Eos # (Auto) Baso # (Auto) Abs Immat Gran (auto) Absolute Neuts (auto) Absolute Nucleated RBC Nucleated RBC % Sodium Potassium Chloride Carbon Dioxide Anion Gap BUN Creatinine Estim Creat Clear Calc Estimated GFR Glucose POC Capillary Glucose 169 H 150 H Calcium Magnesium Total Bilirubin AST ALT Alkaline Phosphatase Total Protein Albumin Urine Osmolality 266 10/11/23 10/11/23 10/11/23 05:02 07:57 11:26 WBC 15.9 H RBC 4.30 Hgb 13.1 Hct 39.5 MCV 91.9 MCH 30.5 MCHC 33.2 RDW 12.9 Plt Count 223 MPV 11.2 H Immature Gran % (Auto) 0.6 H Neut % (Auto) 85.3 H Lymph % (Auto) 7.2 L [place] % (Auto) 6.6 Eos % (Auto) 0.2 Baso % (Auto) 0.1 L Lymph # (Auto) 1.15 [place] # (Auto) 1.1 H Eos # (Auto) 0.0 Baso # (Auto) 0.0 Abs Immat Gran (auto) 0.10 H Absolute Neuts (auto) 13.6 H Absolute Nucleated RBC 0.000 Nucleated RBC % 0.0 Sodium 134 L Potassium 4.1 Chloride 94 L Carbon Dioxide 26 Anion Gap 14 H BUN 29 H Creatinine 1.30 H Estim Creat Clear Calc 41 Estimated GFR 42 L Glucose 106 POC Capillary Glucose 102 117 H Calcium 9.3 Magnesium 2.0 Total Bilirubin 0.6 AST 24 ALT 17 Alkaline Phosphatase 171 H Total Protein 8.0 Albumin 4.0 Urine Osmolality
[2023-10-11] MEDS: AZITHROMYCIN 500 MG/NS 250 ML 500 MG/250 ML BAG 250 MG IVPB (13:09)
[2023-10-11 16:14] LABS: Pneumococcal Antigen Urine NOT DETECTED
[2023-10-11 17:06] LABS: Glucose Point of Care 145 mg/dl (65-105)
[2023-10-11 17:49] LABS: Mycoplasma IgM Antibody Titer 132 U/mL
[2023-10-11] MEDS: guaiFENesin 12 HR 600 MG TABCR PO (20:13)
[2023-10-11] MEDS: lisinopriL 20 MG TABLET PO (20:14)
[2023-10-11] MEDS: TAMSULOSIN HCL 0.4 MG CAPSULE PO (20:14)
[2023-10-11] MEDS: MONTELUKAST SODIUM 10 MG TABLET PO (20:14)
[2023-10-11 20:56] LABS: Glucose Point of Care 153 mg/dl (65-105)
[2023-10-12] VITALS (24 sets, daily range): BP systolic 129–148; BP diastolic 57–78; PULSE 81–105; RESP 16–26; TEMP 36.6–37; O2SAT 91–100
[2023-10-12] MEDS: IPRATROPIUM 0.5 MG/ALBUTEROL SULFATE 2.5 MG AMPUL.NEB 3 ML INHALATION ×4 (02:17→20:16)
[2023-10-12 04:29] LABS: Basophils Percent Auto 0.1 % (0.2-1.2); Eosinophils Percent Auto 0.2 % (0-4.4); Hematocrit 39.8 % (37.0-47.0); Hemoglobin 13.2 g/dL (12.0-15.0); Immature Granulocyte Absolute 0.09 K/mm3 (0.00-0.031); Immature Granulocyte Percent A 0.7 % (0-0.5); Lymphocytes Absolute Auto 1.16 K/mm3 (0.9-3.2); Lymphocytes Percent Auto 8.4 % (18.3-44.2); Mean Corpuscular HGB Conc 33.2 g/dl (32-36); Mean Corpuscular Hemoglobin 30.3 pg (26-34); Mean Corpuscular Volume 91.3 fl (80-100); Mean Platelet Volume 11.2 fl (7.4-10.4); Monocytes Absolute Auto 0.9 K/mm3 (0.1-0.6); Monocytes Percent Auto 6.5 % (2.6-8.5); Neutrophils Absolute Auto 11.6 K/mm3 (1.3-6.7); Neutrophils Percent Auto 84.1 % (45.5-73.1); Platelet Count Result 215 k/mm3 (150-375); Red Blood Count 4.36 M/mm3 (4.2-5.4); Red Cell Distribution Width 12.7 % (11.5-14.5); White Blood Count 13.8 K/mm3 (4.5-10.0)
[2023-10-12 04:48] LABS: Alanine Aminotransferase 15 U/L (6-35); Alkaline Phosphatase 146 U/L (38-126); Anion Gap 11 mmol/L (4-12); Aspartate Amino Transferase 21 U/L (14-36); Bilirubin,Total 0.6 mg/dL (0.2-1.3); Blood Urea Nitrogen 30 mg/dL (7-17); Calcium 9.1 mg/dL (8.4-10.2); Carbon Dioxide 24 mmol/L (22-30); Chloride 98 mmol/L (98-107); Estimated CRCL calculation 53 ml/min; Estimated Glomerular Filt Rate 57; Glucose 101 mg/dL (65-110); Magnesium 2.2 mg/dL (1.6-2.3); Potassium 4.3 mmol/L (3.4-5.0); Sodium 133 mmol/L (137-145)
[2023-10-12] MEDS: LEVOTHYROXINE SODIUM 100 MCG TABLET PO (06:05)
[2023-10-12 06:45] LABS: Glucose Point of Care 96 mg/dl (65-105)
[2023-10-12] MEDS: FLUTICASONE/SALMETEROL 115-21 MCG INHALER 1 PUFF 2 PUFF INHALATION ×2 (07:46→20:16)
[2023-10-12] MEDS: UMECLIDINIUM BROMIDE 62.5 MCG ELLIPTA 1 PUFF INHALATION (07:47)
[2023-10-12 08:21] LABS: Glucose Point of Care 89 mg/dl (65-105)
[2023-10-12] MEDS: ENOXAPARIN 40 MG/0.4 ML SYRINGE SUB-Q (08:25)
[2023-10-12] MEDS: buPROPion HCL SR (12 HR) 150 MG TAB PO (08:25)
[2023-10-12] MEDS: rifAXIMin 550 MG TABLET PO ×2 (08:25→20:36)
[2023-10-12] MEDS: LORATADINE 10 MG TABLET PO (08:25)
[2023-10-12] MEDS: SUCRALFATE 1 GM TABLET PO ×2 (08:25→16:36)
[2023-10-12] MEDS: busPIRone HCL 2.5 MG TABLET PO ×2 (08:25→16:36)
[2023-10-12] MEDS: SPIRONOLACTONE 25 MG TABLET 50 MG PO (08:25)
[2023-10-12] MEDS: PANTOPRAZOLE 40 MG TABLET PO (08:26)
[2023-10-12] MEDS: predniSONE 20 MG TABLET 40 MG PO (08:26)
[2023-10-12] MEDS: ATORVASTATIN 40 MG TABLET PO (08:26)
[2023-10-12] MEDS: guaiFENesin 12 HR 600 MG TABCR PO ×2 (08:26→20:36)
[2023-10-12] MEDS: BACLOFEN 10 MG TABLET PO ×2 (08:26→16:36)
[2023-10-12] MEDS: PARoxetine 20 MG TABLET 40 MG PO (08:26)
[2023-10-12] MEDS: FAMOTIDINE 20 MG TABLET PO (08:27)
[2023-10-12] MEDS: FOLIC ACID 1 MG TABLET PO (08:27)
[2023-10-12] MEDS: busPIRone HCL 5 MG TABLET PO ×2 (08:27→16:36)
[2023-10-12] MEDS: MECLIZINE HCL 25 MG TABLET PO ×3 (08:27→16:36)
[2023-10-12] MEDS: hydrALAZINE 10 MG TABLET PO ×2 (08:27→16:35)
[2023-10-12] MEDS: TOLNAFTATE 1% POWDER 45 GM BTL 1 APPLIC TOPICAL ×2 (12:04→20:36)
[2023-10-12] MEDS: AZITHROMYCIN 500 MG/NS 250 ML 500 MG/250 ML BAG 250 MG IVPB (12:04)
[2023-10-12 12:08] LABS: Glucose Point of Care 162 mg/dl (65-105)
--- NOTE | 2023-10-12 12:56 | PM.IMPN ---
Progress Note: A&P Assessment and Plan (1) Bilateral pneumonia: Code(s): J18.9 - Pneumonia, unspecified organism Status: Acute (2) COPD (chronic obstructive pulmonary disease): Code(s): J44.9 - Chronic obstructive pulmonary disease, unspecified Status: Acute (3) Somnolence: Code(s): R40.0 - Somnolence Status: Acute (4) Diabetes: Qualifiers: Diabetes mellitus type: type 2 Diabetes mellitus mcc insulin use: with mcc use Diabetes mellitus complication status: without complication Qualified Code(s): E11.9 - Type 2 diabetes mellitus without complications; Z79.4 - nursing home (current) use of insulin Code(s): E11.9 - Type 2 diabetes mellitus without complications Status: Chronic Plan Patient presented with shortness of breath. Remains on high-flow Oxygen.mild tachycardia persist. Labs reviewed leukocytosis persist. ABG with no hypercapnia. Troponin negative x 3. MRSA nares negative. Influenza RSV COVID negative. Mycoplasma Legionella, pneumococcal antigen pending. Chest x-ray with bilateral pneumonia more on the left side. Bilateral interstitial thickening suggestive of pneumonitis versus pulmonary edema. CTA chest with no PE diffuse lung disease consistent with pulmonary edema versus atypical pneumonia cirrhosis of liver and T12 burst fracture likely subacute or chronic. Blood culture x2 negative. Echo 10/09/2023 EF more than 70% mildly increased left ventricular wall thickness grade 1 diastolic dysfunction mild TR. hypoxic respiratory failure with rapid worsening on admission needing BiPAP now has been titrated down to high-flow oxygen supplementation. On ceftriaxone and azithromycin and prednisone. BNP was 113 repeat BNP elevated. Received a dose of Lasix 10/10/2023. Add incentive spirometry and Mucinex. Oxygen requirement down to 6 liter/minute now continues to improve. Stop azithromycin completes 5 days course History of COPD. Possible COPD exacerbation on presentation was diffuse expiratory wheezing. Pulmonary has been consulted. On prednisone. Hyponatremia on admission 126 slowly improving Diabetes Hypertension Hyperlipidemia Hypothyroidism cirrhosis of liver Anxiety/depression Current smoker DVT prophylaxis add Lovenox Code status full code Subjective Date/time seen: 10/12/23 12:56 Interval history: Feeling better. Airvo has been tapered off to nasal cannula this a.m.. Cough is improving Review of Systems Review of Systems: All systems reviewed & are unremarkable except as noted in HPI and below Exam Narrative: GENERAL: Ill-appearing in no acute distress. Well-nourished. On nasal cannula - EYES: EOMI. Anicteric. - HENT: Moist mucous membranes. - LUNGS: Coarse breath sound bilaterally, mild wheezing end-expiratory - CARDIOVASCULAR: Mild tachycardia sinus on tele. No murmur. No JVD. - ABDOMEN: Soft, non-tender and non-distended. No palpable masses. - EXTREMITIES: No edema. Peripheral pulses 2+. Non-tender. - NEUROLOGIC: No focal neurological deficits. CN II-XII grossly intact. - PSYCHIATRIC: Awake, Alert and oriented x 3. Appropriate mood and affect. - SKIN: No rashes or lesions. Warm. - LYMPH: No cervical lymphadenopathy. Objective Data Vital Signs Vital Signs: Vital Signs - 24 hr 10/11/23 13:27 10/11/23 13:27 10/11/23 13:35 Temperature Pulse Rate 104 H 94 Respiratory Rate 24 H 24 H Blood Pressure Pulse Oximetry 99 Oxygen Delivery High Flow Therapy with Na Oxygen Flow Rate 30 Fraction of Inspired Oxygen 48 10/11/23 16:00 10/11/23 14:00 10/11/23 16:00 Temperature 97.3 F L Pulse Rate 102 H 108 H 102 H Respiratory Rate 18 Blood Pressure 133/74 Pulse Oximetry 98 Oxygen Delivery Oxygen Flow Rate Fraction of Inspired Oxygen 10/11/23 18:00 10/11/23 16:00 10/11/23 20:11 Temperature 97.6 F Pulse Rate 106 H 107 H Respiratory Rate 18 Blood Pressure 127/54 L Pulse Oximetry 98 100 Oxygen Delivery High Flow Therapy with Na Oxygen Flow Rate 20 Fraction of Inspired Oxygen 45 10/11/23 20:00 10/11/23 20:29 10/11/23 20:29 Temperature Pulse Rate 107 H 97 Respiratory Rate 18 22 H Blood Pressure Pulse Oximetry 100 97 Oxygen Delivery High Flow Therapy with Na High Flow Therapy with Na Oxygen Flow Rate 30 30 Fraction of Inspired Oxygen 47 48 10/11/23 20:36 10/11/23 20:00 10/11/23 22:00 Temperature Pulse Rate 95 102 H 97 Respiratory Rate 22 H Blood Pressure Pulse Oximetry Oxygen Delivery Oxygen Flow Rate Fraction of Inspired Oxygen 10/11/23 23:58 10/12/23 00:00 10/12/23 00:00 Temperature 97.6 F Pulse Rate 96 96 94 Respiratory Rate 26 H 26 H Blood Pressure 120/72 Pulse Oximetry 99 99 Oxygen Delivery High Flow Therapy with Na Oxygen Flow Rate 30 Fraction of Inspired Oxygen 48 10/12/23 01:12 10/12/23 02:17 10/12/23 02:17 Temperature Pulse Rate 96 92 Respiratory Rate 22 H Blood Pressure Pulse Oximetry 100 Oxygen Delivery High Flow Therapy with Na Oxygen Flow Rate 30 Fraction of Inspired Oxygen 48 10/12/23 02:23 10/12/23 03:29 10/12/23 03:30 Temperature 98.6 F Pulse Rate 94 98 98 Respiratory Rate 20 24 H 24 H Blood Pressure 137/75 Pulse Oximetry 99 99 Oxygen Delivery High Flow Therapy with Na Oxygen Flow Rate 30 Fraction of Inspired Oxygen 47 10/12/23 04:00 10/12/23 05:43 10/12/23 07:30 Temperature 97.9 F Pulse Rate 97 98 90 Respiratory Rate 18 Blood Pressure 131/65 Pulse Oximetry 91 Oxygen Delivery Oxygen Flow Rate Fraction of Inspired Oxygen 10/12/23 07:34 10/12/23 07:34 10/12/23 07:34 Temperature Pulse Rate 86 86 Respiratory Rate 20 20 Blood Pressure Pulse Oximetry 99 Oxygen Delivery High Flow Therapy with Na High Flow Therapy with Na Oxygen Flow Rate 30 Fraction of Inspired Oxygen 48 10/12/23 07:48 10/12/23 07:48 10/12/23 09:57 Temperature Pulse Rate 83 Respiratory Rate 20 Blood Pressure Pulse Oximetry 100 Oxygen Delivery High Flow Nasal Cannula High Flow Therapy with Na Oxygen Flow Rate 8 6 Fraction of Inspired Oxygen 10/12/23 12:00 Temperature 97.9 F Pulse Rate 89 Respiratory Rate 16 Blood Pressure 141/70 H Pulse Oximetry 98 Oxygen Delivery Oxygen Flow Rate Fraction of Inspired Oxygen Intake/Output Intake/Output: Intake & Output 10/09/23 10/10/23 10/11/23 10/12/23 23:59 23:59 23:59 23:59 Intake Total 1040 1640 890 740 Output Total 1700 1500 1400 [address] [place] [id number] 140 -510 -10 Meds/Results Medications: Active Medications Generic Name Dose Route Start Last Admin Trade Name Freq PRN Reason Stop Dose Admin Acetaminophen 500 mg 10/08/23 16:27 Acetaminophen 500 Mg Tablet PO Q6H PRN Mild Pain (1-3) or Fever Albuterol 2 puff 10/08/23 20:40 Albuterol Sulfate (*Sp) Aerosol 1 Puff INHALATION Q4HRT PRN sob Albuterol/Ipratropium 3 ml 10/08/23 20:00 10/12/23 07:31 Ipratropium 0.5 Mg/Albuterol Sulfate 2.5 Mg Ampul.Neb 3 Ml INHALATION 3 ml Q6HRT ALEX Administration Atorvastatin Calcium 40 mg 10/09/23 09:00 10/12/23 08:26 Atorvastatin 40 Mg Tablet PO 40 mg DAILY ALEX Administration Baclofen 10 mg 10/09/23 09:00 10/12/23 08:26 Baclofen 10 Mg Tablet PO 10 mg BID ALEX Administration Benzocaine 1 lozenge 10/08/23 16:26 Benzocaine/Menthol (*Bkc) 18 Ea Lozenge PO PRN PRN Sore Throat Benzonatate 100 mg 10/08/23 16:26 10/09/23 17:52 Benzonatate 100 Mg Capsule PO 100 mg TID PRN Administration Cough Bupropion HCl 150 mg 10/09/23 09:00 10/12/23 08:25 Bupropion Hcl Sr (12 Hr) 150 Mg Tab PO 150 mg DAILY ALEX Administration Buspirone HCl 2.5 mg 10/09/23 09:00 10/12/23 08:25 Buspirone Hcl 2.5 Mg Tablet PO 11/08/23 08:59 2.5 mg BID ALEX Administration Buspirone HCl 5 mg 10/09/23 09:00 10/12/23 08:27 Buspirone Hcl 5 Mg Tablet PO 5 mg BID ALEX Administration Celecoxib 200 mg 10/08/23 20:40 Celecoxib 200 Mg Capsule PO BID PRN Pain Dextrose 12.5 gm 10/08/23 20:40 Dextrose 50% 25 Gm/50 Ml Syringe IV PUSH PRN PRN Hypoglycemia Protocol Enoxaparin Sodium 40 mg 10/10/23 09:00 10/12/23 08:25 Enoxaparin 40 Mg/0.4 Ml Syringe SUB-Q 40 mg DAILY ALEX Administration Famotidine 20 mg 10/09/23 09:00 10/12/23 08:27 Famotidine 20 Mg Tablet PO 20 mg DAILY ALEX Administration Folic Acid 1 mg 10/09/23 09:00 10/12/23 08:27 Folic Acid 1 Mg Tablet PO 1 mg DAILY ALEX Administration Glucagon 1 mg 10/08/23 20:40 Glucagon For Inj 1 Mg Vial IM PRN PRN Hypoglycemia Protocol Glucose 15 gm 10/08/23 20:40 Glucose Oral Gel 15 Gm Of Glucse In 37.5 Gm Tube PO PRN PRN Hypoglycemia Protocol Guaifenesin 600 mg 10/11/23 21:00 10/12/23 08:26 Guaifenesin 12 Hr 600 Mg Tabcr PO 600 mg Q12HR ALEX Administration Hydralazine HCl 10 mg 10/09/23 09:00 10/12/23 08:27 Hydralazine 10 Mg Tablet PO 10 mg BID ALEX Administration Ceftriaxone Sodium 1 gm in 50 mls @ 100 mls/hr 10/09/23 15:00 10/11/23 19:15 Rocephin 1 Gm/Ns 50 Ml IVPB Infused Q24H ALEX Infusion Azithromycin 500 mg in 250 mls @ 250 mls/hr 10/09/23 12:00 10/12/23 12:04 Zithromax IVPB 250 mls/hr Q24H ALEX Administration Dextrose 1,000 mls @ 100 mls/hr 10/08/23 20:40 Dextrose 5% 1,000 Ml IVPB PRN PRN Hypoglycemia Protocol Insulin Aspart 2 - 5 units 10/09/23 08:00 10/12/23 12:07 Insulin Aspart (*Bkc) 100 Units/Ml SUB-Q Not Given TIDWM ALEX Protocol Levothyroxine Sodium 100 mcg 10/09/23 06:30 10/12/23 06:05 Levothyroxine Sodium 100 Mcg Tablet PO 100 mcg DAILY@0630 ALEX Administration Lisinopril 20 mg 10/08/23 21:00 10/11/23 20:14 Lisinopril 20 Mg Tablet PO 20 mg HS ALEX Administration Loratadine 10 mg 10/09/23 09:00 10/12/23 08:25 Loratadine 10 Mg Tablet PO 11/08/23 08:59 10 mg DAILY ALEX Administration Meclizine HCl 25 mg 10/09/23 09:00 10/12/23 12:04 Meclizine Hcl 25 Mg Tablet PO 25 mg TID ALEX Administration Montelukast Sodium 10 mg 10/11/23 21:00 10/11/23 20:14 Montelukast Sodium 10 Mg Tablet PO 10 mg HS ALEX Administration Ondansetron HCl 4 mg 10/08/23 20:40 10/09/23 17:52 Ondansetron Hcl Odt 4 Mg Tablet PO 4 mg Q6H PRN Administration Nausea Pantoprazole Sodium 40 mg 10/09/23 09:00 10/12/23 08:26 Pantoprazole 40 Mg Tablet PO 40 mg DAILY ALEX Administration Paroxetine HCl 40 mg 10/09/23 09:00 10/12/23 08:26 Paroxetine 20 Mg Tablet PO 40 mg DAILY ALEX Administration Prednisone 40 mg 10/09/23 08:00 10/12/23 08:26 Prednisone 20 Mg Tablet PO 10/13/23 08:01 40 mg DAILY@0800 ALEX Administration Rifaximin 550 mg 10/08/23 21:00 10/12/23 08:25 Rifaximin 550 Mg Tablet PO 550 mg Q12H ALEX Administration Fluticasone/Salmeterol 2 puff 10/09/23 09:00 10/12/23 07:46 Fluticasone/Salmeterol 115-21 Mcg Inhaler 1 Puff INHALATION 2 puff Q12HR ALEX Administration Spironolactone 50 mg 10/09/23 09:00 10/12/23 08:25 Spironolactone 25 Mg Tablet PO 50 mg DAILY ALEX Administration Sucralfate 1 gm 10/09/23 09:00 10/12/23 08:25 Sucralfate 1 Gm Tablet PO 1 gm BID ALEX Administration Tamsulosin HCl 0.4 mg 10/08/23 21:00 10/11/23 20:14 Tamsulosin Hcl 0.4 Mg Capsule PO 0.4 mg HS ALEX Administration Tolnaftate 1 applic 10/12/23 11:00 10/12/23 12:04 Tolnaftate 1% Powder 45 Gm Btl TOPICAL 1 applic Q12HR ALEX Administration Triamcinolone Acetonide 1 applic 10/08/23 20:40 Triamcinolone Acet 0.5% Cream 15 Gm Tube TOPICAL BID PRN Rash Umeclidinium [place] 1 puff 10/09/23 09:00 10/12/23 07:47 Umeclidinium [place] 62.5 Mcg Ellipta INHALATION 11/08/23 08:59 1 puff DAILY ALEX Administration Radiology Results: ITS Impressions Head CT 10/08/23 14:08 IMPRESSION: No acute intracranial findings. Chest CTA 10/08/23 22:43 IMPRESSION: 1. No pulmonary embolus. Sensitivity is moderately decreased by motion artifact. 2. Diffuse lung disease, consistent with pulmonary edema versus atypical pneumonia. 3. Cirrhosis of the liver. 4. T12 burst fracture, likely subacute or chronic. Chest X-Ray 10/10/23 10:57 Impression: Bibasilar airspace disease, left worse than right. Correlate for bibasilar pulmonary edema/atelectasis versus pneumonia. Labs Labs: Laboratory Results - last 24 hr 10/09/23 10/09/23 10/11/23 00:43 02:30 16:44 WBC RBC Hgb Hct MCV MCH MCHC RDW Plt Count MPV Immature Gran % (Auto) Neut % (Auto) Lymph % (Auto) [place] % (Auto) Eos % (Auto) Baso % (Auto) Lymph # (Auto) [place] # (Auto) Eos # (Auto) Baso # (Auto) Abs Immat Gran (auto) Absolute Neuts (auto) Absolute Nucleated RBC Nucleated RBC % Sodium Potassium Chloride Carbon Dioxide Anion Gap BUN Creatinine Estim Creat Clear Calc Estimated GFR Glucose POC Capillary Glucose 145 H Calcium Magnesium Total Bilirubin AST ALT Alkaline Phosphatase Total Protein Albumin Mycoplasma pneumon IgM 132 Urine Pneumococcal Ag Not detected 10/11/23 10/12/23 10/12/23 19:46 03:42 06:42 WBC 13.8 H RBC 4.36 Hgb 13.2 Hct 39.8 MCV 91.3 MCH 30.3 MCHC 33.2 RDW 12.7 Plt Count 215 MPV 11.2 H Immature Gran % (Auto) 0.7 H Neut % (Auto) 84.1 H Lymph % (Auto) 8.4 L [place] % (Auto) 6.5 Eos % (Auto) 0.2 Baso % (Auto) 0.1 L Lymph # (Auto) 1.16 [place] # (Auto) 0.9 H Eos # (Auto) 0.0 Baso # (Auto) 0.0 Abs Immat Gran (auto) 0.09 H Absolute Neuts (auto) 11.6 H Absolute Nucleated RBC 0.000 Nucleated RBC % 0.0 Sodium 133 L Potassium 4.3 Chloride 98 Carbon Dioxide 24 Anion Gap 11 BUN 30 H Creatinine 1.00 Estim Creat Clear Calc 53 Estimated GFR 57 L Glucose 101 POC Capillary Glucose 153 H 96 Calcium 9.1 Magnesium 2.2 Total Bilirubin 0.6 AST 21 ALT 15 Alkaline Phosphatase 146 H Total Protein 7.0 Albumin 4.0 Mycoplasma pneumon IgM Urine Pneumococcal Ag 10/12/23 10/12/23 07:35 12:06 WBC RBC Hgb Hct MCV MCH MCHC RDW Plt Count MPV Immature Gran % (Auto) Neut % (Auto) Lymph % (Auto) [place] % (Auto) Eos % (Auto) Baso % (Auto) Lymph # (Auto) [place] # (Auto) Eos # (Auto) Baso # (Auto) Abs Immat Gran (auto) Absolute Neuts (auto) Absolute Nucleated RBC Nucleated RBC % Sodium Potassium Chloride Carbon Dioxide Anion Gap BUN Creatinine Estim Creat Clear Calc Estimated GFR Glucose POC Capillary Glucose 89 162 H Calcium Magnesium Total Bilirubin AST ALT Alkaline Phosphatase Total Protein Albumin Mycoplasma pneumon IgM Urine Pneumococcal Ag
[2023-10-12 16:38] LABS: Glucose Point of Care 207 mg/dl (65-105)
[2023-10-12] MEDS: INSULIN ASPART (*BKC) 100 UNITS/ML SUB-Q (17:32)
[2023-10-12 19:25] LABS: Glucose Point of Care 202 mg/dl (65-105)
[2023-10-12] MEDS: MONTELUKAST SODIUM 10 MG TABLET PO (20:36)
[2023-10-12] MEDS: lisinopriL 20 MG TABLET PO (20:36)
[2023-10-12] MEDS: TAMSULOSIN HCL 0.4 MG CAPSULE PO (20:36)
--- NOTE | 2023-10-12 23:07 | PC.NURSE ---
Spoke with Petty TOVAR, let her know transfer order was placed today but medical level of necessity was not changed. New order placed with appropriate care level.
[2023-10-13] VITALS (21 sets, daily range): BP systolic 109–143; BP diastolic 53–85; PULSE 80–107; RESP 17–20; TEMP 36.1–36.6; O2SAT 90–100
--- NOTE | 2023-10-13 00:08 | PC.NURSE ---
Pt transferred from IMU 202-1 to 3 Med Surg room 312-1 @ [id number]. Report received from SWATHI Wren in IMU.
--- NOTE | 2023-10-13 00:27 | PC.NURSE ---
This patient, Analilia Montgomery, was transferred to room 312- on 10/13/23 at 2359. Personal belongings sent with patient. Report given to SWATHI Serna Appropriate documentation sent with patient.
--- NOTE | 2023-10-13 00:28 | PC.NURSE ---
10/12/23 at 2330-Pt's daughter, Kelsi Dias was called and updated that the Pt and was going to be transferring to another floor and given the new room number.
[2023-10-13] MEDS: GABAPENTIN 400 MG CAPSULE 800 MG PO ×4 (00:36→21:33)
[2023-10-13] MEDS: OLOPATADINE 0.1% OPHTH SOLN 5 ML BTL 1 DROP EACH EYE (00:36)
[2023-10-13] MEDS: IPRATROPIUM 0.5 MG/ALBUTEROL SULFATE 2.5 MG AMPUL.NEB 3 ML INHALATION ×4 (03:24→19:28)
[2023-10-13] MEDS: ONDANSETRON HCL ODT 4 MG TABLET PO (03:37)
[2023-10-13] MEDS: LEVOTHYROXINE SODIUM 100 MCG TABLET PO (05:24)
[2023-10-13 06:24] LABS: Basophils Percent Auto 0.2 % (0.2-1.2); Eosinophils Absolute Auto 0.2 K/mm3 (0-0.3); Eosinophils Percent Auto 1.1 % (0-4.4); Hematocrit 39.1 % (37.0-47.0); Hemoglobin 13.2 g/dL (12.0-15.0); Immature Granulocyte Absolute 0.09 K/mm3 (0.00-0.031); Immature Granulocyte Percent A 0.7 % (0-0.5); Lymphocytes Percent Auto 12.4 % (18.3-44.2); Mean Corpuscular HGB Conc 33.8 g/dl (32-36); Mean Corpuscular Hemoglobin 30.5 pg (26-34); Mean Corpuscular Volume 90.3 fl (80-100); Mean Platelet Volume 11.2 fl (7.4-10.4); Monocytes Absolute Auto 1.1 K/mm3 (0.1-0.6); Monocytes Percent Auto 7.8 % (2.6-8.5); Neutrophils Absolute Auto 10.7 K/mm3 (1.3-6.7); Neutrophils Percent Auto 77.8 % (45.5-73.1); Platelet Count Result 214 k/mm3 (150-375); Red Blood Count 4.33 M/mm3 (4.2-5.4); Red Cell Distribution Width 12.4 % (11.5-14.5); White Blood Count 13.8 K/mm3 (4.5-10.0)
[2023-10-13 06:47] LABS: Alanine Aminotransferase 16 U/L (6-35); Albumin Level 3.8 g/dL (3.5-5.1); Alkaline Phosphatase 132 U/L (38-126); Anion Gap 10 mmol/L (4-12); Aspartate Amino Transferase 24 U/L (14-36); Bilirubin,Total 0.8 mg/dL (0.2-1.3); Blood Urea Nitrogen 24 mg/dL (7-17); Calcium 8.9 mg/dL (8.4-10.2); Carbon Dioxide 25 mmol/L (22-30); Chloride 92 mmol/L (98-107); Estimated CRCL calculation 53 ml/min; Estimated Glomerular Filt Rate 57; Glucose 91 mg/dL (65-110); Magnesium 1.8 mg/dL (1.6-2.3); Potassium 3.6 mmol/L (3.4-5.0); Sodium 127 mmol/L (137-145)
[2023-10-13] MEDS: FLUTICASONE/SALMETEROL 115-21 MCG INHALER 1 PUFF 2 PUFF INHALATION ×2 (07:36→19:30)
[2023-10-13] MEDS: UMECLIDINIUM BROMIDE 62.5 MCG ELLIPTA 1 PUFF INHALATION (07:38)
[2023-10-13 07:44] LABS: Glucose Point of Care 88 mg/dl (65-105)
[2023-10-13] MEDS: predniSONE 20 MG TABLET 40 MG PO (08:57)
[2023-10-13] MEDS: PARoxetine 20 MG TABLET 40 MG PO (08:59)
[2023-10-13] MEDS: hydrALAZINE 10 MG TABLET PO ×2 (08:59→17:14)
[2023-10-13] MEDS: ENOXAPARIN 40 MG/0.4 ML SYRINGE SUB-Q (08:59)
[2023-10-13] MEDS: FAMOTIDINE 20 MG TABLET PO (08:59)
[2023-10-13] MEDS: ATORVASTATIN 40 MG TABLET PO (08:59)
[2023-10-13] MEDS: BACLOFEN 10 MG TABLET PO ×2 (09:00→17:15)
[2023-10-13] MEDS: MECLIZINE HCL 25 MG TABLET PO ×3 (09:00→17:15)
[2023-10-13] MEDS: guaiFENesin 12 HR 600 MG TABCR PO ×2 (09:00→21:33)
[2023-10-13] MEDS: SUCRALFATE 1 GM TABLET PO ×2 (09:00→17:14)
[2023-10-13] MEDS: FOLIC ACID 1 MG TABLET PO (09:01)
[2023-10-13] MEDS: SPIRONOLACTONE 25 MG TABLET 50 MG PO (09:01)
[2023-10-13] MEDS: LORATADINE 10 MG TABLET PO (09:01)
[2023-10-13] MEDS: PANTOPRAZOLE 40 MG TABLET PO (09:01)
[2023-10-13] MEDS: busPIRone HCL 2.5 MG TABLET PO ×2 (09:01→17:14)
[2023-10-13] MEDS: buPROPion HCL SR (12 HR) 150 MG TAB PO (09:01)
[2023-10-13] MEDS: busPIRone HCL 5 MG TABLET PO ×2 (09:02→17:15)
[2023-10-13] MEDS: TOLNAFTATE 1% POWDER 45 GM BTL 1 APPLIC TOPICAL ×2 (09:02→21:34)
[2023-10-13] MEDS: rifAXIMin 550 MG TABLET PO ×2 (09:22→21:34)
[2023-10-13 11:54] LABS: Glucose Point of Care 160 mg/dl (65-105)
[2023-10-13] MEDS: ACETAMINOPHEN 500 MG TABLET PO (14:29)
--- NOTE | 2023-10-13 14:49 | PM.IMPN ---
Progress Note: A&P Assessment and Plan (1) Bilateral pneumonia: Code(s): J18.9 - Pneumonia, unspecified organism Status: Acute (2) COPD (chronic obstructive pulmonary disease): Code(s): J44.9 - Chronic obstructive pulmonary disease, unspecified Status: Acute (3) Somnolence: Code(s): R40.0 - Somnolence Status: Acute (4) Diabetes: Qualifiers: Diabetes mellitus type: type 2 Diabetes mellitus intermediate insulin use: with intermediate use Diabetes mellitus complication status: without complication Qualified Code(s): E11.9 - Type 2 diabetes mellitus without complications; Z79.4 - snf (current) use of insulin Code(s): E11.9 - Type 2 diabetes mellitus without complications Status: Chronic Plan Patient presented with shortness of breath. Remains on high-flow Oxygen.mild tachycardia persist. Labs reviewed leukocytosis persist. ABG with no hypercapnia. Troponin negative x 3. MRSA nares negative. Influenza RSV COVID negative. Mycoplasma Legionella, pneumococcal antigen pending. Chest x-ray with bilateral pneumonia more on the left side. Bilateral interstitial thickening suggestive of pneumonitis versus pulmonary edema. CTA chest with no PE diffuse lung disease consistent with pulmonary edema versus atypical pneumonia cirrhosis of liver and T12 burst fracture likely subacute or chronic. Blood culture x2 negative. Echo 10/09/2023 EF more than 70% mildly increased left ventricular wall thickness grade 1 diastolic dysfunction mild TR. hypoxic respiratory failure with rapid worsening on admission needing BiPAP now has been titrated down to high-flow oxygen supplementation. On ceftriaxone and azithromycin and prednisone. BNP was 113 repeat BNP elevated. Received a dose of Lasix 10/10/2023. Add incentive spirometry and Mucinex. Oxygen requirement much improved now continues to improve. Stop azithromycin completes 5 days course. Home oxygen evaluation and anticipate discharge tomorrow History of COPD. Possible COPD exacerbation on presentation was diffuse expiratory wheezing. Pulmonary has been consulted. On prednisone. Finish his prednisone dosing today Hyponatremia on admission 126 slowly improving Diabetes Hypertension Hyperlipidemia Hypothyroidism cirrhosis of liver Anxiety/depression Current smoker DVT prophylaxis: Lovenox Code status full code Subjective Date/time seen: 10/13/23 14:49 Interval history: Feeling much better. Oxygen requirement is down to 2. No shortness of breath. Review of Systems Review of Systems: All systems reviewed & are unremarkable except as noted in HPI and below Exam Narrative: GENERAL: Well-appearing in no acute distress. Well-nourished. On nasal cannula - EYES: EOMI. Anicteric. - HENT: Moist mucous membranes. - LUNGS: Coarse breath sound bilaterally, no wheezes no respiratory distress - CARDIOVASCULAR: Regular rate and rhythm No murmur. No JVD. - ABDOMEN: Soft, non-tender and non-distended. No palpable masses. - EXTREMITIES: No edema. Peripheral pulses 2+. Non-tender. - NEUROLOGIC: No focal neurological deficits. CN II-XII grossly intact. - PSYCHIATRIC: Awake, Alert and oriented x 3. Appropriate mood and affect. - SKIN: No rashes or lesions. Warm. - LYMPH: No cervical lymphadenopathy. Objective Data Vital Signs Vital Signs: Vital Signs - 24 hr 10/12/23 16:00 10/12/23 15:28 10/12/23 15:45 Temperature Pulse Rate 95 Respiratory Rate 20 Blood Pressure Pulse Oximetry 99 95 Oxygen Delivery High Flow Therapy with Na Nasal Cannula Nasal Cannula Oxygen Flow Rate 3 3 3 Fraction of Inspired Oxygen 32 10/12/23 15:45 10/12/23 15:56 10/12/23 15:56 Temperature Pulse Rate 95 105 H 105 H Respiratory Rate 20 20 20 Blood Pressure Pulse Oximetry 99 Oxygen Delivery Nasal Cannula Oxygen Flow Rate 3 Fraction of Inspired Oxygen 32 10/12/23 16:00 10/12/23 16:00 10/12/23 20:02 Temperature 98.6 F 98.6 F Pulse Rate 95 103 H 81 Respiratory Rate 18 18 Blood Pressure 129/57 L 148/78 H Pulse Oximetry 97 100 Oxygen Delivery Oxygen Flow Rate Fraction of Inspired Oxygen 10/12/23 20:00 10/12/23 20:21 10/12/23 20:23 Temperature Pulse Rate 81 82 82 Respiratory Rate 18 20 20 Blood Pressure Pulse Oximetry 100 98 Oxygen Delivery Nasal Cannula Nasal Cannula Oxygen Flow Rate 2 2 Fraction of Inspired Oxygen 10/12/23 20:34 10/12/23 20:00 10/12/23 23:12 Temperature Pulse Rate 84 93 90 Respiratory Rate 20 Blood Pressure Pulse Oximetry Oxygen Delivery Oxygen Flow Rate Fraction of Inspired Oxygen 10/13/23 00:00 10/13/23 00:00 10/13/23 01:07 Temperature 97.2 F L Pulse Rate 94 98 91 Respiratory Rate 17 Blood Pressure 143/85 H Pulse Oximetry 90 Oxygen Delivery Oxygen Flow Rate Fraction of Inspired Oxygen 10/13/23 00:40 10/13/23 03:22 10/13/23 03:27 Temperature Pulse Rate 83 85 Respiratory Rate 20 20 Blood Pressure Pulse Oximetry 90 Oxygen Delivery Nasal Cannula Oxygen Flow Rate 2 Fraction of Inspired Oxygen 10/13/23 04:00 10/13/23 06:07 10/13/23 07:35 Temperature 97.8 F Pulse Rate 88 80 100 Respiratory Rate 18 20 Blood Pressure 116/69 Pulse Oximetry 97 92 Oxygen Delivery Nasal Cannula Oxygen Flow Rate 2 Fraction of Inspired Oxygen 10/13/23 07:35 10/13/23 07:51 10/13/23 08:00 Temperature Pulse Rate 100 97 92 Respiratory Rate 20 20 Blood Pressure Pulse Oximetry Oxygen Delivery Oxygen Flow Rate Fraction of Inspired Oxygen 10/13/23 09:07 10/13/23 08:00 10/13/23 12:00 Temperature Pulse Rate 101 H 85 Respiratory Rate Blood Pressure 119/63 Pulse Oximetry 93 Oxygen Delivery Nasal Cannula Oxygen Flow Rate 2 Fraction of Inspired Oxygen 10/13/23 13:24 10/13/23 13:32 10/13/23 14:00 Temperature 97.0 F L Pulse Rate 96 98 96 Respiratory Rate 20 20 20 Blood Pressure 109/53 L Pulse Oximetry 100 Oxygen Delivery Oxygen Flow Rate Fraction of Inspired Oxygen Intake/Output Intake/Output: Intake & Output 10/10/23 10/11/23 10/12/23 10/13/23 23:59 23:59 23:59 23:59 Intake Total 7998 825 0618 1044 Output Total 1500 1400 750 Balance 140 -510 1170 1044 Meds/Results Medications: Active Medications Generic Name Dose Route Start Last Admin Trade Name Freq PRN Reason Stop Dose Admin Acetaminophen 500 mg 10/08/23 16:27 10/13/23 14:29 Acetaminophen 500 Mg Tablet PO 500 mg Q6H PRN Administration Mild Pain (1-3) or Fever Albuterol 2 puff 10/08/23 20:40 Albuterol Sulfate (*Sp) Aerosol 1 Puff INHALATION Q4HRT PRN sob Albuterol/Ipratropium 3 ml 10/08/23 20:00 10/13/23 13:23 Ipratropium 0.5 Mg/Albuterol Sulfate 2.5 Mg Ampul.Neb 3 Ml INHALATION 3 ml Q6HRT ALEX Administration Atorvastatin Calcium 40 mg 10/09/23 09:00 10/13/23 08:59 Atorvastatin 40 Mg Tablet PO 40 mg DAILY ALEX Administration Baclofen 10 mg 10/09/23 09:00 10/13/23 09:00 Baclofen 10 Mg Tablet PO 10 mg BID ALEX Administration Benzocaine 1 lozenge 10/08/23 16:26 Benzocaine/Menthol (*Bkc) 18 Ea Lozenge PO PRN PRN Sore Throat Benzonatate 100 mg 10/08/23 16:26 10/09/23 17:52 Benzonatate 100 Mg Capsule PO 100 mg TID PRN Administration Cough Bupropion HCl 150 mg 10/09/23 09:00 10/13/23 09:01 Bupropion Hcl Sr (12 Hr) 150 Mg Tab PO 150 mg DAILY ALEX Administration Buspirone HCl 2.5 mg 10/09/23 09:00 10/13/23 09:01 Buspirone Hcl 2.5 Mg Tablet PO 11/08/23 08:59 2.5 mg BID ALEX Administration Buspirone HCl 5 mg 10/09/23 09:00 10/13/23 09:02 Buspirone Hcl 5 Mg Tablet PO 5 mg BID ALEX Administration Celecoxib 200 mg 10/08/23 20:40 Celecoxib 200 Mg Capsule PO BID PRN Pain Dextrose 12.5 gm 10/08/23 20:40 Dextrose 50% 25 Gm/50 Ml Syringe IV PUSH PRN PRN Hypoglycemia Protocol Enoxaparin Sodium 40 mg 10/10/23 09:00 10/13/23 08:59 Enoxaparin 40 Mg/0.4 Ml Syringe SUB-Q 40 mg DAILY ALEX Administration Famotidine 20 mg 10/09/23 09:00 10/13/23 08:59 Famotidine 20 Mg Tablet PO 20 mg DAILY ALEX Administration Folic Acid 1 mg 10/09/23 09:00 10/13/23 09:01 Folic Acid 1 Mg Tablet PO 1 mg DAILY ALEX Administration Gabapentin 800 mg 10/12/23 23:06 10/13/23 09:06 Gabapentin 400 Mg Capsule PO 800 mg TID PRN Administration Neuropathy pain Glucagon 1 mg 10/08/23 20:40 Glucagon For Inj 1 Mg Vial IM PRN PRN Hypoglycemia Protocol Glucose 15 gm 10/08/23 20:40 Glucose Oral Gel 15 Gm Of Glucse In 37.5 Gm Tube PO PRN PRN Hypoglycemia Protocol Guaifenesin 600 mg 10/11/23 21:00 10/13/23 09:00 Guaifenesin 12 Hr 600 Mg Tabcr PO 600 mg Q12HR ALEX Administration Hydralazine HCl 10 mg 10/09/23 09:00 10/13/23 08:59 Hydralazine 10 Mg Tablet PO 10 mg BID ALEX Administration Ceftriaxone Sodium 1 gm in 50 mls @ 100 mls/hr 10/09/23 15:00 10/13/23 14:20 Rocephin 1 Gm/Ns 50 Ml IVPB 100 mls/hr Q24H ALEX Administration Dextrose 1,000 mls @ 100 mls/hr 10/08/23 20:40 Dextrose 5% 1,000 Ml IVPB PRN PRN Hypoglycemia Protocol Insulin Aspart 2 - 5 units 10/09/23 08:00 10/13/23 11:49 Insulin Aspart (*Bkc) 100 Units/Ml SUB-Q Not Given TIDWM ALEX Protocol Levothyroxine Sodium 100 mcg 10/09/23 06:30 10/13/23 05:24 Levothyroxine Sodium 100 Mcg Tablet PO 100 mcg DAILY@0630 ALEX Administration Lisinopril 20 mg 10/08/23 21:00 10/12/23 20:36 Lisinopril 20 Mg Tablet PO 20 mg HS ALEX Administration Loratadine 10 mg 10/09/23 09:00 10/13/23 09:01 Loratadine 10 Mg Tablet PO 11/08/23 08:59 10 mg DAILY ALEX Administration Meclizine HCl 25 mg 10/09/23 09:00 10/13/23 12:00 Meclizine Hcl 25 Mg Tablet PO 25 mg TID ALEX Administration Montelukast Sodium 10 mg 10/11/23 21:00 10/12/23 20:36 Montelukast Sodium 10 Mg Tablet PO 10 mg HS ALEX Administration Olopatadine HCl 1 drop 10/12/23 23:14 10/13/23 00:36 Olopatadine 0.1% Ophth Soln 5 Ml Btl EACH EYE 1 drop DAILY PRN Administration Dry Eyes Ondansetron HCl 4 mg 10/08/23 20:40 10/13/23 03:37 Ondansetron Hcl Odt 4 Mg Tablet PO 4 mg Q6H PRN Administration Nausea Pantoprazole Sodium 40 mg 10/09/23 09:00 10/13/23 09:01 Pantoprazole 40 Mg Tablet PO 40 mg DAILY ALEX Administration Paroxetine HCl 40 mg 10/09/23 09:00 10/13/23 08:59 Paroxetine 20 Mg Tablet PO 40 mg DAILY ALEX Administration Rifaximin 550 mg 10/08/23 21:00 10/13/23 09:22 Rifaximin 550 Mg Tablet PO 550 mg Q12H ALEX Administration Fluticasone/Salmeterol 2 puff 10/09/23 09:00 10/13/23 07:36 Fluticasone/Salmeterol 115-21 Mcg Inhaler 1 Puff INHALATION 2 puff Q12HR ALEX Administration Spironolactone 50 mg 10/09/23 09:00 10/13/23 09:01 Spironolactone 25 Mg Tablet PO 50 mg DAILY ALEX Administration Sucralfate 1 gm 10/09/23 09:00 10/13/23 09:00 Sucralfate 1 Gm Tablet PO 1 gm BID ALEX Administration Tamsulosin HCl 0.4 mg 10/08/23 21:00 10/12/23 20:36 Tamsulosin Hcl 0.4 Mg Capsule PO 0.4 mg HS ALEX Administration Tolnaftate 1 applic 10/12/23 11:00 10/13/23 09:02 Tolnaftate 1% Powder 45 Gm Btl TOPICAL 1 applic Q12HR ALEX Administration Triamcinolone Acetonide 1 applic 10/08/23 20:40 Triamcinolone Acet 0.5% Cream 15 Gm Tube TOPICAL BID PRN Rash Umeclidinium [place] 1 puff 10/09/23 09:00 10/13/23 07:38 Umeclidinium [place] 62.5 Mcg Ellipta INHALATION 11/08/23 08:59 1 puff DAILY ALEX Administration Radiology Results: ITS Impressions Head CT 10/08/23 14:08 IMPRESSION: No acute intracranial findings. Chest CTA 10/08/23 22:43 IMPRESSION: 1. No pulmonary embolus. Sensitivity is moderately decreased by motion artifact. 2. Diffuse lung disease, consistent with pulmonary edema versus atypical pneumonia. 3. Cirrhosis of the liver. 4. T12 burst fracture, likely subacute or chronic. Chest X-Ray 10/10/23 10:57 Impression: Bibasilar airspace disease, left worse than right. Correlate for bibasilar pulmonary edema/atelectasis versus pneumonia. Labs Labs: Laboratory Results - last 24 hr 10/12/23 10/12/23 10/13/23 16:21 19:16 05:56 WBC 13.8 H RBC 4.33 Hgb 13.2 Hct 39.1 MCV 90.3 MCH 30.5 MCHC 33.8 RDW 12.4 Plt Count 214 MPV 11.2 H Immature Gran % (Auto) 0.7 H Neut % (Auto) 77.8 H Lymph % (Auto) 12.4 L [place] % (Auto) 7.8 Eos % (Auto) 1.1 Baso % (Auto) 0.2 Lymph # (Auto) 1.70 [place] # (Auto) 1.1 H Eos # (Auto) 0.2 Baso # (Auto) 0.0 Abs Immat Gran (auto) 0.09 H Absolute Neuts (auto) 10.7 H Absolute Nucleated RBC 0.000 Nucleated RBC % 0.0 Sodium 127 L Potassium 3.6 Chloride 92 L Carbon Dioxide 25 Anion Gap 10 BUN 24 H Creatinine 1.00 Estim Creat Clear Calc 53 Estimated GFR 57 L Glucose 91 POC Capillary Glucose 207 H 202 H Calcium 8.9 Magnesium 1.8 Total Bilirubin 0.8 AST 24 ALT 16 Alkaline Phosphatase 132 H Total Protein 7.0 Albumin 3.8 10/13/23 10/13/23 07:42 11:48 WBC RBC Hgb Hct MCV MCH MCHC RDW Plt Count MPV Immature Gran % (Auto) Neut % (Auto) Lymph % (Auto) [place] % (Auto) Eos % (Auto) Baso % (Auto) Lymph # (Auto) [place] # (Auto) Eos # (Auto) Baso # (Auto) Abs Immat Gran (auto) Absolute Neuts (auto) Absolute Nucleated RBC Nucleated RBC % Sodium Potassium Chloride Carbon Dioxide Anion Gap BUN Creatinine Estim Creat Clear Calc Estimated GFR Glucose POC Capillary Glucose 88 160 H Calcium Magnesium Total Bilirubin AST ALT Alkaline Phosphatase Total Protein Albumin
[2023-10-13] MEDS: NICOTINE (*PBKC) 14 MG PATCH 1 PATCH TRANSDERM (15:07)
[2023-10-13 17:19] LABS: Glucose Point of Care 312 mg/dl (65-105)
[2023-10-13 17:19] LABS: Glucose Point of Care 287 mg/dl (65-105)
[2023-10-13] MEDS: INSULIN ASPART (*BKC) 100 UNITS/ML SUB-Q (17:20)
--- NOTE | 2023-10-13 20:43 | P.PNPL_ITS ---
Progress Note: A&P Assessment and Plan (1) COPD (chronic obstructive pulmonary disease): Qualifiers: COPD type: unspecified COPD Qualified Code(s): J44.9 - Chronic obstructive pulmonary disease, unspecified Code(s): J44.9 - Chronic obstructive pulmonary disease, unspecified Status: Acute Assessment and Plan: Long standing COPD, no PFTS in [facility] system. (2) Acute hypoxemic respiratory failure: Code(s): J96.01 - Acute respiratory failure with hypoxia Status: Acute Assessment and Plan: Was not on O2 prior to this admission, and is weaned down to 2 L/.min. May be able to go home on O2 and wean during recovera as an outpatient. (3) Bilateral pneumonia: Code(s): J18.9 - Pneumonia, unspecified organism Status: Acute Assessment and Plan: Improved clinically, no pathogen identified. Rx with IV Rocephin and oral azithromycin. (4) Tobacco abuse: Code(s): Z72.0 - Tobacco use Status: Acute Assessment and Plan: Smoked heavily until admission, needs Tobacco Cesation informatoin at discarge. Plan Pateint has improved since admission, O2 need is lower, and she can be discharged to home and steroid taper with follow up in 2-3 weeks. Subjective Date/time seen: 10/13/23 20:43 Interval history: 10/13/23; She is much improved, O2 is 2 L/min, WBC is lower 13.8, and symptoms are improved. Less short of breath. 10/10/2023, new consult. Analilia Montgomery is a 57-yo female with COPD, smoking history now a half pack per day, admitted with increased shortness of breath over 2 days, chest tightness, increased use of inhalers; ,WBC 20.2K, CTA with no PE, she had bilateral ground glass opacities consistent with bilateral pneumon ia, L>R; has no sputum to test; had Rapid Response overnight October 07 to ; O2 need increased. She was transferred to IMU Room , improved with AirVO instead of high flow cannula 11 L/min,20 L/min and 47% FiO2; feels less short of breath. She has a cough with small amounts of sputum. O2 flow has been weaned during the day. . PMH: COPD, diabetes, hypertension, hyperlipidemia, hypothyroidism presenting with shortness of breath DATA * 10/08/23; CTA = FINDINGS: There are groundglass opacities and crazy paving involving all lobes. A calcified right lung nodule is consistent with old granu lomatous disease. No pleural effusion. The heart size is normal. There are coronary artery calcifications. No pericardial effusion. There is no pulmonary embolus. The liver demonstrates surface nodularity, consistent with cirrhosis. There are gallstones in the gallbladder. There is severe thoracic spondylosis. There is a burst fracture of T12 with 2/5 loss of height and retropulsion of bone 3 mm into central spinal canal. IMPRESSION: 1. No pulmonary embolus. Sensitivity is moderately decreased by motion artifact. 2. Diffuse lung disease, consistent with pulmonary edema versus atypical pneumon ia. 3. Cirrhosis of the liver. 4. T12 burst fracture, likely subacute or chronic. * 10/09/2023 echo;Complete two-dimensional, color flow and Doppler transthoracic echocardiogram is performed. 2. Left ventricular chamber dimension is normal. 3. Left ventricular systolic function is hyperdynamic, estimated at >70%. 4. There is mildly increased left ventricular wall thickness. 5. The left ventricular diastolic function is grade I diastolic dysfunction. 6. There is mild tricuspid valve regurgitation. * 10/08/2023 ABG Review of Systems 2 Review of Systems: All systems reviewed & are unremarkable except as noted in HPI and below Exam Narrative: GEN: Alert, oriented, no accessory muscle use. O2 2 L/min. CHEST: Equal air entry, symmetric excursion, hyperinflated thorax, decreased breath sounds, clear CV: Reg S1S2 Extremities : no clubbing, cyanosis, or edema. PSYCH: normal thought. Objective Data Vital Signs Vital Signs: Vital Signs - 24 hr 10/12/23 23:12 10/13/23 00:00 10/13/23 00:00 Temperature 36.2 C L Pulse Rate 90 94 98 Respiratory Rate 17 Blood Pressure 143/85 H Pulse Oximetry 90 Oxygen Delivery Oxygen Flow Rate 10/13/23 01:07 10/13/23 00:40 10/13/23 03:22 Temperature Pulse Rate 91 83 Respiratory Rate 20 Blood Pressure Pulse Oximetry 90 Oxygen Delivery Nasal Cannula Oxygen Flow Rate 2 10/13/23 03:27 10/13/23 04:00 10/13/23 06:07 Temperature 36.6 C Pulse Rate 85 88 80 Respiratory Rate 20 18 Blood Pressure 116/69 Pulse Oximetry 97 Oxygen Delivery Oxygen Flow Rate 10/13/23 07:35 10/13/23 07:35 10/13/23 07:51 Temperature Pulse Rate 100 100 97 Respiratory Rate 20 20 20 Blood Pressure Pulse Oximetry 92 Oxygen Delivery Nasal Cannula Oxygen Flow Rate 2 10/13/23 08:00 10/13/23 09:07 10/13/23 08:00 Temperature Pulse Rate 92 101 H Respiratory Rate Blood Pressure 119/63 Pulse Oximetry 93 Oxygen Delivery Nasal Cannula Oxygen Flow Rate 2 10/13/23 12:00 10/13/23 13:24 10/13/23 13:32 Temperature Pulse Rate 85 96 98 Respiratory Rate 20 20 Blood Pressure Pulse Oximetry Oxygen Delivery Oxygen Flow Rate 10/13/23 14:00 10/13/23 16:00 10/13/23 19:30 Temperature 36.1 C L Pulse Rate 96 98 92 Respiratory Rate 20 20 Blood Pressure 109/53 L Pulse Oximetry 100 Oxygen Delivery Oxygen Flow Rate 10/13/23 19:40 10/13/23 20:32 Temperature 36.3 C L Pulse Rate 95 107 H Respiratory Rate 20 18 Blood Pressure 143/71 H Pulse Oximetry 94 Oxygen Delivery Oxygen Flow Rate Intake/Output Intake/Output: Intake & Output 10/10/23 10/11/23 10/12/23 10/13/23 23:59 23:59 23:59 23:59 Intake Total 8611 750 9373 2222 Output Total 1500 1400 750 Balance 140 -510 1170 2222 Meds/Results Medications: Active Medications Generic Name Dose Route Start Last Admin Trade Name Freq PRN Reason Stop Dose Admin Acetaminophen 500 mg 10/08/23 16:27 10/13/23 14:29 Acetaminophen 500 Mg Tablet PO 500 mg Q6H PRN Administration Mild Pain (1-3) or Fever Albuterol 2 puff 10/08/23 20:40 Albuterol Sulfate (*Sp) Aerosol 1 Puff INHALATION Q4HRT PRN sob Albuterol/Ipratropium 3 ml 10/08/23 20:00 10/13/23 19:28 Ipratropium 0.5 Mg/Albuterol Sulfate 2.5 Mg Ampul.Neb 3 Ml INHALATION 3 ml Q6HRT ALEX Administration Atorvastatin Calcium 40 mg 10/09/23 09:00 10/13/23 08:59 Atorvastatin 40 Mg Tablet PO 40 mg DAILY ALEX Administration Baclofen 10 mg 10/09/23 09:00 10/13/23 17:15 Baclofen 10 Mg Tablet PO 10 mg BID ALEX Administration Benzocaine 1 lozenge 10/08/23 16:26 Benzocaine/Menthol (*Bkc) 18 Ea Lozenge PO PRN PRN Sore Throat Benzonatate 100 mg 10/08/23 16:26 10/09/23 17:52 Benzonatate 100 Mg Capsule PO 100 mg TID PRN Administration Cough Bupropion HCl 150 mg 10/09/23 09:00 10/13/23 09:01 Bupropion Hcl Sr (12 Hr) 150 Mg Tab PO 150 mg DAILY ALEX Administration Buspirone HCl 2.5 mg 10/09/23 09:00 10/13/23 17:14 Buspirone Hcl 2.5 Mg Tablet PO 11/08/23 08:59 2.5 mg BID ALEX Administration Buspirone HCl 5 mg 10/09/23 09:00 10/13/23 17:15 Buspirone Hcl 5 Mg Tablet PO 5 mg BID ALEX Administration Celecoxib 200 mg 10/08/23 20:40 Celecoxib 200 Mg Capsule PO BID PRN Pain Dextrose 12.5 gm 10/08/23 20:40 Dextrose 50% 25 Gm/50 Ml Syringe IV PUSH PRN PRN Hypoglycemia Protocol Enoxaparin Sodium 40 mg 10/10/23 09:00 10/13/23 08:59 Enoxaparin 40 Mg/0.4 Ml Syringe SUB-Q 40 mg DAILY ALEX Administration Famotidine 20 mg 10/09/23 09:00 10/13/23 08:59 Famotidine 20 Mg Tablet PO 20 mg DAILY ALEX Administration Folic Acid 1 mg 10/09/23 09:00 10/13/23 09:01 Folic Acid 1 Mg Tablet PO 1 mg DAILY ALEX Administration Gabapentin 800 mg 10/12/23 23:06 10/13/23 17:19 Gabapentin 400 Mg Capsule PO 800 mg TID PRN Administration Neuropathy pain Glucagon 1 mg 10/08/23 20:40 Glucagon For Inj 1 Mg Vial IM PRN PRN Hypoglycemia Protocol Glucose 15 gm 10/08/23 20:40 Glucose Oral Gel 15 Gm Of Glucse In 37.5 Gm Tube PO PRN PRN Hypoglycemia Protocol Guaifenesin 600 mg 10/11/23 21:00 10/13/23 09:00 Guaifenesin 12 Hr 600 Mg Tabcr PO 600 mg Q12HR ALEX Administration Hydralazine HCl 10 mg 10/09/23 09:00 10/13/23 17:14 Hydralazine 10 Mg Tablet PO 10 mg BID ALEX Administration Ceftriaxone Sodium 1 gm in 50 mls @ 100 mls/hr 10/09/23 15:00 10/13/23 14:50 Rocephin 1 Gm/Ns 50 Ml IVPB Infused Q24H ALEX Infusion Dextrose 1,000 mls @ 100 mls/hr 10/08/23 20:40 Dextrose 5% 1,000 Ml IVPB PRN PRN Hypoglycemia Protocol Insulin Aspart 2 - 5 units 10/09/23 08:00 10/13/23 17:20 Insulin Aspart (*Bkc) 100 Units/Ml SUB-Q 3 units TIDWM ALEX Administration Protocol Levothyroxine Sodium 100 mcg 10/09/23 06:30 10/13/23 05:24 Levothyroxine Sodium 100 Mcg Tablet PO 100 mcg DAILY@0630 ALEX Administration Lisinopril 20 mg 10/08/23 21:00 10/12/23 20:36 Lisinopril 20 Mg Tablet PO 20 mg HS ALEX Administration Loratadine 10 mg 10/09/23 09:00 10/13/23 09:01 Loratadine 10 Mg Tablet PO 11/08/23 08:59 10 mg DAILY ALEX Administration Meclizine HCl 25 mg 10/09/23 09:00 10/13/23 17:15 Meclizine Hcl 25 Mg Tablet PO 25 mg TID ALEX Administration Montelukast Sodium 10 mg 10/11/23 21:00 10/12/23 20:36 Montelukast Sodium 10 Mg Tablet PO 10 mg HS ALEX Administration Nicotine 1 patch 10/13/23 15:00 10/13/23 15:07 Nicotine (*Trinity) 14 Mg Patch TRANSDERM 1 patch DAILY ALEX Administration Olopatadine HCl 1 drop 10/12/23 23:14 10/13/23 00:36 Olopatadine 0.1% Ophth Soln 5 Ml Btl EACH EYE 1 drop DAILY PRN Administration Dry Eyes Ondansetron HCl 4 mg 10/08/23 20:40 10/13/23 03:37 Ondansetron Hcl Odt 4 Mg Tablet PO 4 mg Q6H PRN Administration Nausea Pantoprazole Sodium 40 mg 10/09/23 09:00 10/13/23 09:01 Pantoprazole 40 Mg Tablet PO 40 mg DAILY ALEX Administration Paroxetine HCl 40 mg 10/09/23 09:00 10/13/23 08:59 Paroxetine 20 Mg Tablet PO 40 mg DAILY ALEX Administration Rifaximin 550 mg 10/08/23 21:00 10/13/23 09:22 Rifaximin 550 Mg Tablet PO 550 mg Q12H ALEX Administration Fluticasone/Salmeterol 2 puff 10/09/23 09:00 10/13/23 19:30 Fluticasone/Salmeterol 115-21 Mcg Inhaler 1 Puff INHALATION 2 puff Q12HR ALEX Administration Spironolactone 50 mg 10/09/23 09:00 10/13/23 09:01 Spironolactone 25 Mg Tablet PO 50 mg DAILY ALEX Administration Sucralfate 1 gm 10/09/23 09:00 10/13/23 17:14 Sucralfate 1 Gm Tablet PO 1 gm BID ALEX Administration Tamsulosin HCl 0.4 mg 10/08/23 21:00 10/12/23 20:36 Tamsulosin Hcl 0.4 Mg Capsule PO 0.4 mg HS ALEX Administration Tolnaftate 1 applic 10/12/23 11:00 10/13/23 09:02 Tolnaftate 1% Powder 45 Gm Btl TOPICAL 1 applic Q12HR ALEX Administration Triamcinolone Acetonide 1 applic 10/08/23 20:40 Triamcinolone Acet 0.5% Cream 15 Gm Tube TOPICAL BID PRN Rash Umeclidinium [place] 1 puff 10/09/23 09:00 10/13/23 07:38 Umeclidinium [place] 62.5 Mcg Ellipta INHALATION 11/08/23 08:59 1 puff DAILY ALEX Administration Radiology Results: ITS Impressions Head CT 10/08/23 14:08 IMPRESSION: No acute intracranial findings. Chest CTA 10/08/23 22:43 IMPRESSION: 1. No pulmonary embolus. Sensitivity is moderately decreased by motion artifact. 2. Diffuse lung disease, consistent with pulmonary edema versus atypical pneumonia. 3. Cirrhosis of the liver. 4. T12 burst fracture, likely subacute or chronic. Chest X-Ray 10/10/23 10:57 Impression: Bibasilar airspace disease, left worse than right. Correlate for bibasilar pulmonary edema/atelectasis versus pneumonia. Labs Labs: Laboratory Results - last 24 hr 10/13/23 10/13/23 10/13/23 05:56 07:42 11:48 WBC 13.8 H RBC 4.33 Hgb 13.2 Hct 39.1 MCV 90.3 MCH 30.5 MCHC 33.8 RDW 12.4 Plt Count 214 MPV 11.2 H Immature Gran % (Auto) 0.7 H Neut % (Auto) 77.8 H Lymph % (Auto) 12.4 L Emanuel % (Auto) 7.8 Eos % (Auto) 1.1 Baso % (Auto) 0.2 Lymph # (Auto) 1.70 Emanuel # (Auto) 1.1 H Eos # (Auto) 0.2 Baso # (Auto) 0.0 Abs Immat Gran (auto) 0.09 H Absolute Neuts (auto) 10.7 H Absolute Nucleated RBC 0.000 Nucleated RBC % 0.0 Sodium 127 L Potassium 3.6 Chloride 92 L Carbon Dioxide 25 Anion Gap 10 BUN 24 H Creatinine 1.00 Estim Creat Clear Calc 53 Estimated GFR 57 L Glucose 91 POC Capillary Glucose 88 160 H Calcium 8.9 Magnesium 1.8 Total Bilirubin 0.8 AST 24 ALT 16 Alkaline Phosphatase 132 H Total Protein 7.0 Albumin 3.8 10/13/23 10/13/23 17:09 17:12 WBC RBC Hgb Hct MCV MCH MCHC RDW Plt Count MPV Immature Gran % (Auto) Neut % (Auto) Lymph % (Auto) Emanuel % (Auto) Eos % (Auto) Baso % (Auto) Lymph # (Auto) Emanuel # (Auto) Eos # (Auto) Baso # (Auto) Abs Immat Gran (auto) Absolute Neuts (auto) Absolute Nucleated RBC Nucleated RBC % Sodium Potassium Chloride Carbon Dioxide Anion Gap BUN Creatinine Estim Creat Clear Calc Estimated GFR Glucose POC Capillary Glucose 312 H 287 H Calcium Magnesium Total Bilirubin AST ALT Alkaline Phosphatase Total Protein Albumin
[2023-10-13 20:47] LABS: Glucose Point of Care 255 mg/dl (65-105)
[2023-10-13] MEDS: MONTELUKAST SODIUM 10 MG TABLET PO (21:33)
[2023-10-13] MEDS: TAMSULOSIN HCL 0.4 MG CAPSULE PO (21:34)
[2023-10-13] MEDS: lisinopriL 20 MG TABLET PO (21:34)
[2023-10-14] VITALS (19 sets, daily range): BP systolic 141–161; BP diastolic 83–86; PULSE 81–129; RESP 12–20; TEMP 36.5–36.7; O2SAT 83–97
[2023-10-14] MEDS: BENZOCAINE/MENTHOL (*BKC) 18 EA LOZENGE 1 LOZENGE PO (00:51)
[2023-10-14] MEDS: OLOPATADINE 0.1% OPHTH SOLN 5 ML BTL 1 DROP EACH EYE (00:52)
[2023-10-14] MEDS: IPRATROPIUM 0.5 MG/ALBUTEROL SULFATE 2.5 MG AMPUL.NEB 3 ML INHALATION ×3 (05:05→14:06)
[2023-10-14] MEDS: LEVOTHYROXINE SODIUM 100 MCG TABLET PO (06:09)
[2023-10-14 06:24] LABS: Basophils Percent Auto 0.1 % (0.2-1.2); Eosinophils Absolute Auto 0.1 K/mm3 (0-0.3); Eosinophils Percent Auto 0.7 % (0-4.4); Hematocrit 41.2 % (37.0-47.0); Hemoglobin 13.4 g/dL (12.0-15.0); Immature Granulocyte Absolute 0.16 K/mm3 (0.00-0.031); Immature Granulocyte Percent A 1.1 % (0-0.5); Lymphocytes Absolute Auto 1.23 K/mm3 (0.9-3.2); Lymphocytes Percent Auto 8.1 % (18.3-44.2); Mean Corpuscular HGB Conc 32.5 g/dl (32-36); Mean Corpuscular Hemoglobin 30.5 pg (26-34); Mean Corpuscular Volume 93.6 fl (80-100); Mean Platelet Volume 11.4 fl (7.4-10.4); Monocytes Absolute Auto 1.2 K/mm3 (0.1-0.6); Monocytes Percent Auto 7.6 % (2.6-8.5); Neutrophils Absolute Auto 12.5 K/mm3 (1.3-6.7); Neutrophils Percent Auto 82.4 % (45.5-73.1); Platelet Count Result 173 k/mm3 (150-375); Red Cell Distribution Width 12.5 % (11.5-14.5); White Blood Count 15.2 K/mm3 (4.5-10.0)
[2023-10-14 06:35] LABS: Alanine Aminotransferase 20 U/L (6-35); Albumin Level 3.9 g/dL (3.5-5.1); Alkaline Phosphatase 145 U/L (38-126); Anion Gap 10 mmol/L (4-12); Aspartate Amino Transferase 23 U/L (14-36); Bilirubin,Total 0.6 mg/dL (0.2-1.3); Blood Urea Nitrogen 20 mg/dL (7-17); Calcium 8.7 mg/dL (8.4-10.2); Carbon Dioxide 25 mmol/L (22-30); Chloride 92 mmol/L (98-107); Estimated CRCL calculation 60 ml/min; Estimated Glomerular Filt Rate > 60; Glucose 113 mg/dL (65-110); Magnesium 1.9 mg/dL (1.6-2.3); Potassium 3.7 mmol/L (3.4-5.0); Sodium 127 mmol/L (137-145)
[2023-10-14 07:49] LABS: Glucose Point of Care 108 mg/dl (65-105)
[2023-10-14] MEDS: NICOTINE (*PBKC) 14 MG PATCH 1 PATCH TRANSDERM (08:37)
[2023-10-14] MEDS: LORATADINE 10 MG TABLET PO (08:40)
[2023-10-14] MEDS: FAMOTIDINE 20 MG TABLET PO (08:40)
[2023-10-14] MEDS: PANTOPRAZOLE 40 MG TABLET PO (08:40)
[2023-10-14] MEDS: busPIRone HCL 5 MG TABLET PO ×2 (08:40→16:38)
[2023-10-14] MEDS: BACLOFEN 10 MG TABLET PO ×2 (08:40→16:38)
[2023-10-14] MEDS: rifAXIMin 550 MG TABLET PO (08:40)
[2023-10-14] MEDS: buPROPion HCL SR (12 HR) 150 MG TAB PO (08:41)
[2023-10-14] MEDS: PARoxetine 20 MG TABLET 40 MG PO (08:41)
[2023-10-14] MEDS: SUCRALFATE 1 GM TABLET PO ×2 (08:41→16:38)
[2023-10-14] MEDS: FOLIC ACID 1 MG TABLET PO (08:41)
[2023-10-14] MEDS: busPIRone HCL 2.5 MG TABLET PO ×2 (08:41→16:38)
[2023-10-14] MEDS: UMECLIDINIUM BROMIDE 62.5 MCG ELLIPTA 1 PUFF INHALATION (08:41)
[2023-10-14] MEDS: FLUTICASONE/SALMETEROL 115-21 MCG INHALER 1 PUFF 2 PUFF INHALATION (08:41)
[2023-10-14] MEDS: SPIRONOLACTONE 25 MG TABLET 50 MG PO (08:41)
[2023-10-14] MEDS: MECLIZINE HCL 25 MG TABLET PO ×3 (08:41→16:39)
[2023-10-14] MEDS: hydrALAZINE 10 MG TABLET PO ×2 (08:41→16:38)
[2023-10-14] MEDS: ATORVASTATIN 40 MG TABLET PO (08:41)
[2023-10-14] MEDS: guaiFENesin 12 HR 600 MG TABCR PO (08:41)
[2023-10-14] MEDS: ENOXAPARIN 40 MG/0.4 ML SYRINGE SUB-Q (08:42)
[2023-10-14] MEDS: TOLNAFTATE 1% POWDER 45 GM BTL 1 APPLIC TOPICAL (08:47)
[2023-10-14] MEDS: GABAPENTIN 400 MG CAPSULE 800 MG PO ×2 (08:52→15:16)
[2023-10-14 11:35] LABS: Glucose Point of Care 141 mg/dl (65-105)
--- NOTE | 2023-10-14 11:49 | HOMEO2EVAL ---
Evaluation was performed at [facility] Home Oxygen Evaluation RC: Home Oxygen (O2) Evaluation Start: 10/13/23 14:50 Freq: ONCE Status: Active Protocol: RPE Activity Type Activity Date Activity User E-sign Co-sign Detail Recorded Client Recorded Date Recorded By Document 10/14/23 10:00 ANILA [email or web address] 10/14/23 11:49 ANILA Document 10/14/23 10:03 [email or web address] [email or web address] 10/14/23 11:49 ANILA Document 10/14/23 10:04 [email or web address] [email or web address] 10/14/23 11:49 ANILA Document 10/14/23 10:05 [email or web address] [email or web address] 10/14/23 11:49 ANILA Document 10/14/23 10:06 [email or web address] [email or web address] 10/14/23 11:49 ANILA Document 10/14/23 10:07 [email or web address] [email or web address] 10/14/23 11:49 ANILA Document 10/14/23 10:10 [email or web address] [email or web address] 10/14/23 11:49 ANILA Document 10/14/23 10:15 ANILA [email or web address] 10/14/23 11:49 ANILA 10/14/23 10/14/23 10/14/23 10:00 10:03 10:04 Home O2 Evaluation [Oxygen] -Test Phase Resting Resting Exercise -Oxygen Delivery Room Air Nasal Cannula Nasal Cannula -Oxygen Flow Rate (L/min) 2 2 [Pulse Oximetry] -Pulse Oximetry (90-100 %) 84 L 89 L 83 L [Pulse Rate] -Pulse Rate (60-100 beats/min) 99 112 H [Exercise] -Ambulation Distance (feet) -Ambulation Distance (meters) [Comments] -Home Oxygen Evaluation Comments [Charges] -Evaluation Charges O2 Evaluation by Pulmonary 10/14/23 10/14/23 10/14/23 10:05 10:06 10:07 Home O2 Evaluation [Oxygen] -Test Phase Exercise Exercise Exercise -Oxygen Delivery Nasal Cannula Nasal Cannula Nasal Cannula -Oxygen Flow Rate (L/min) 3 4 5 [Pulse Oximetry] -Pulse Oximetry (90-100 %) 84 L 85 L 86 L [Pulse Rate] -Pulse Rate (60-100 beats/min) 120 H 122 H [Exercise] -Ambulation Distance (feet) -Ambulation Distance (meters) [Comments] -Home Oxygen Evaluation Comments [Charges] -Evaluation Charges 10/14/23 10/14/23 10:10 10:15 Home O2 Evaluation [Oxygen] -Test Phase Exercise Resting -Oxygen Delivery Nasal Cannula Nasal Cannula -Oxygen Flow Rate (L/min) 6 2 [Pulse Oximetry] -Pulse Oximetry (90-100 %) 89 L 92 [Pulse Rate] -Pulse Rate (60-100 beats/min) 129 H 93 [Exercise] -Ambulation Distance (feet) 350 -Ambulation Distance (meters) 106.67 [Comments] -Home Oxygen Evaluation Comments Pt requires 2 l at rest and 6 l with activity [Charges] -Evaluation Charges
[2023-10-14] MEDS: ACETAMINOPHEN 500 MG TABLET PO (12:09)
[2023-10-14] MEDS: polyethylene glycoL 3350 17 GM POWD.PACK PO (12:12)
--- NOTE | 2023-10-14 13:18 | PM.DS ---
DS: Admitting Diagnosis Discharge Date 10/14/2023 Admitting Diagnosis Shortness of breath DS: Discharge Diagnosis Discharge Diagnosis (1) Bilateral pneumonia: Code(s): J18.9 - Pneumonia, unspecified organism Status: Acute (2) COPD (chronic obstructive pulmonary disease): Code(s): J44.9 - Chronic obstructive pulmonary disease, unspecified Status: Acute (3) Somnolence: Code(s): R40.0 - Somnolence Status: Acute (4) Diabetes: Qualifiers: Diabetes mellitus complication status: without complication Diabetes mellitus senior living insulin use: with assistant terminal manager use Diabetes mellitus type: type 2 Qualified Code(s): E11.9 - Type 2 diabetes mellitus without complications; Z79.4 - terminologist (current) use of insulin Code(s): E11.9 - Type 2 diabetes mellitus without complications Status: Chronic DS: Summary Hospital Course Hospital Course: Patient presented with shortness of breath. Patient required high-flow Oxygen. Labs reviewed leukocytosis persist. ABG with no hypercapnia. Troponin negative x 3. MRSA nares negative. Influenza RSV COVID negative. Mycoplasma Legionella, pneumococcal antigen pending. Chest x-ray with bilateral pneumonia more on the left side. Bilateral interstitial thickening suggestive of pneumonitis versus pulmonary edema. CTA chest with no PE diffuse lung disease consistent with pulmonary edema versus atypical pneumonia cirrhosis of liver and T12 burst fracture likely subacute or chronic. Blood culture x2 negative. Echo 10/09/2023 EF more than 70% mildly increased left ventricular wall thickness grade 1 diastolic dysfunction mild TR. hypoxic respiratory failure with rapid worsening on admission needing BiPAP now has been titrated down to high-flow oxygen supplementation. On ceftriaxone and azithromycin and prednisone. She complete the course of treatment during the hospitalization. BNP was 113 repeat BNP elevated and was also intermittently diuresed. Add incentive spirometry and Mucinex. Oxygen requirement much improved home oxygen evaluation performed and placed 2 L at rest and 6 L with activity History of COPD. Possible COPD exacerbation on presentation was diffuse expiratory wheezing. Pulmonary has been consulted. Treated with prednisone and finish the 5 day course during the hospital stay and will be placed on short taper at discharge. Hyponatremia on admission 126 Stable Diabetes Hypertension Hyperlipidemia Hypothyroidism cirrhosis of liver Anxiety/depression Current smoker DVT prophylaxis: Lovenox Code status full code Time Spent with Patient Time attestation: Total time spent providing and/or coordinating discharge services: 35 minutes Exam Narrative: GENERAL: Well-appearing in no acute distress. Well-nourished. On nasal cannula - EYES: EOMI. Anicteric. - HENT: Moist mucous membranes. - LUNGS: Coarse breath sound bilaterally, no wheezes no respiratory distress - CARDIOVASCULAR: Regular rate and rhythm No murmur. No JVD. - ABDOMEN: Soft, non-tender and non-distended. No palpable masses. - EXTREMITIES: No edema. Peripheral pulses 2+. Non-tender. - NEUROLOGIC: No focal neurological deficits. CN II-XII grossly intact. - PSYCHIATRIC: Awake, Alert and oriented x 3. Appropriate mood and affect. - SKIN: No rashes or lesions. Warm. - LYMPH: No cervical lymphadenopathy. DS: Data Data Completed and Pending Completed studies during hospitalization: Exam Type: CA echo doppler color flow Study Info Indications J96.01 - Acute respiratory failure with hypoxia Complete two-dimensional, color flow and Doppler transthoracic echocardiogram is performed. Reason for Poor Study: poor patient cooperation Summary 1. Complete two-dimensional, color flow and Doppler transthoracic echocardiogram is performed. 2. Left ventricular chamber dimension is normal. 3. Left ventricular systolic function is hyperdynamic, estimated at >70%. 4. There is mildly increased left ventricular wall thickness. 5. The left ventricular diastolic function is grade I diastolic dysfunction. 6. There is mild tricuspid valve regurgitation. Left Ventricle Left ventricular chamber dimension is normal. Left ventricular systolic function is hyperdynamic, estimated at >70%. There is mildly increased left ventricular wall thickness. The left ventricular diastolic function is grade I diastolic dysfunction. Right Ventricle Right ventricular chamber dimension is normal. Right ventricular systolic function is normal. Left Atria Left atrial chamber dimension is normal. Right Atria Right atrial chamber dimension is normal. Atrial Septum Intact interatrial septum visualized by color flow imaging. Aortic Valve The aortic valve is trileaflet. There is mild aortic valve sclerosis. There is no aortic valve stenosis. There is trace aortic valve regurgitation. Pulmonic Valve The pulmonic valve is normal. There is no pulmonic valve stenosis. There is trace pulmonic regurgitation. Mitral Valve The mitral valve has normal leaflets. There is no mitral valve stenosis. There is trace mitral valve regurgitation. Tricuspid Valve The tricuspid valve leaflets are normal. There is no significant tricuspid valve stenosis. There is mild tricuspid valve regurgitation. No pulmonary hypertension, estimated pulmonary arterial systolic pressure is 35 mmHg. Pericardium/Pleural The pericardium appears epicardial fat pad. There is no pericardial effusion. Inferior Vena Cava Normal inferior vena cava with <50% collapse upon inspiration consistent with normal right atrial pressure, 10 mmHg. Aorta The aortic root size at the sinus of Valsalva is normal. Labs on day of discharge: Labs from last 24 hours 10/14/23 10/14/23 10/14/23 11:31 07:47 06:01 WBC 15.2 H RBC 4.40 Hgb 13.4 Hct 41.2 MCV 93.6 MCH 30.5 MCHC 32.5 RDW 12.5 Plt Count 173 MPV 11.4 H Immature Gran % (Auto) 1.1 H Neut % (Auto) 82.4 H Lymph % (Auto) 8.1 L Calloway % (Auto) 7.6 Eos % (Auto) 0.7 Baso % (Auto) 0.1 L Lymph # (Auto) 1.23 Calloway # (Auto) 1.2 H Eos # (Auto) 0.1 Baso # (Auto) 0.0 Abs Immat Gran (auto) 0.16 H Absolute Neuts (auto) 12.5 H Absolute Nucleated RBC 0.000 Nucleated RBC % 0.0 Sodium 127 L Potassium 3.7 Chloride 92 L Carbon Dioxide 25 Anion Gap 10 BUN 20 H Creatinine 0.90 Estim Creat Clear Calc 60 Estimated GFR > 60 Glucose 113 H POC Capillary Glucose 141 H 108 H Calcium 8.7 Magnesium 1.9 Total Bilirubin 0.6 AST 23 ALT 20 Alkaline Phosphatase 145 H Total Protein 7.0 Albumin 3.9 10/13/23 10/13/23 10/13/23 20:45 17:12 17:09 WBC RBC Hgb Hct MCV MCH MCHC RDW Plt Count MPV Immature Gran % (Auto) Neut % (Auto) Lymph % (Auto) Calloway % (Auto) Eos % (Auto) Baso % (Auto) Lymph # (Auto) Calloway # (Auto) Eos # (Auto) Baso # (Auto) Abs Immat Gran (auto) Absolute Neuts (auto) Absolute Nucleated RBC Nucleated RBC % Sodium Potassium Chloride Carbon Dioxide Anion Gap BUN Creatinine Estim Creat Clear Calc Estimated GFR Glucose POC Capillary Glucose 255 H 287 H 312 H Calcium Magnesium Total Bilirubin AST ALT Alkaline Phosphatase Total Protein Albumin Imaging Radiologist's impression: ITS Impressions Head CT 10/08/23 14:08 IMPRESSION: No acute intracranial findings. Chest X-Ray 10/08/23 14:14 IMPRESSION: Bibasilar pneumonia more on the left side. Bilateral interstitial thickening suggestive of pneumonitis versus pulmonary edema. Chest CTA 10/08/23 22:43 IMPRESSION: 1. No pulmonary embolus. Sensitivity is moderately decreased by motion artifact. 2. Diffuse lung disease, consistent with pulmonary edema versus atypical pneumonia. 3. Cirrhosis of the liver. 4. T12 burst fracture, likely subacute or chronic. Chest X-Ray 10/10/23 10:57 Impression: Bibasilar airspace disease, left worse than right. Correlate for bibasilar pulmonary edema/atelectasis versus pneumonia. Discharge Plan Discharge Attending physician on discharge: Mckinley Sharma Consulting providers: Kim Harris Discharging Clinician: Mckinley Sharma Anticipated Discharge Date/Time: 10/14/23 13:06 Patient Disposition: Home, Self-Care Activity: as tolerated Diet: heart healthy Discharge Instructions: Home oxygen 2 L at rest and 6 L with activity Patient Instructions: Antibiotic Form, How to Stop Smoking (DC), Cigarette Smoking and Your Health (GEN), COPD (Chronic Obstructive Pulmonary Disease) (DC), Pneumonia (DC), Electronic Cigarettes and Your Health (GEN) Stand Alone Forms: General Discharge Information Follow-up/Referrals: Kim Harris MD [Physician] - 2 Weeks Plummer,Matthew Murdock MD [Primary Care Provider] - 1 Week Discharge Medications: New guaifenesin [Mucus Relief ER] 600 mg Tablet Extended Release 12hr 600 mg PO Q12HR Qty: 30 0RF ipratropium-albuterol 0.5 mg-3 mg(2.5 mg base)/3 mL Solution For Nebulization 3 ml inhalation Q6HRT Qty: 30 0RF prednisone 10 mg tablet 10 mg PO DIRECTED Qty: 18 0RF Rx Instructions: take 30 mg daily x 3 days then 20 mg daily x 3 days then 10 mg daily x 3 days then stop Continued baclofen 10 mg tablet 10 mg PO BID celecoxib 200 mg capsule 200 mg PO BID PRN (Reason: Pain) atorvastatin 40 mg tablet 40 mg PO DAILY metformin 500 mg tablet 500 mg PO DAILY hydralazine 10 mg tablet 10 mg PO BID bupropion HCl 150 mg tablet sustained-release 12 hr 150 mg PO DAILY fluticasone propion-salmeterol [Advair Diskus] 250-50 mcg/dose blister with device 1 inh INHALATION BID acetaminophen 325 mg tablet 325 mg PO DAILY triamcinolone acetonide 0.5 % cream 1 applic TOPICAL BID PRN (Reason: Rash) cetirizine [Allergy Relief (cetirizine)] 10 mg tablet 10 mg PO DAILY sucralfate 1 gram tablet 1 g PO BID lisinopril 20 mg tablet 20 mg PO HS capsaicin [Arthritis Pain Relief(capsaic)] 0.075 % cream 1 applic TOPICAL TID spironolactone 25 mg tablet 50 mg PO DAILY levothyroxine 100 mcg tablet 100 mcg PO DAILY famotidine 20 mg tablet 20 mg PO DAILY tamsulosin 0.4 mg capsule 0.4 mg PO HS meclizine 25 mg tablet 25 mg PO TID pantoprazole 40 mg tablet,delayed release (DR/EC) 40 mg PO DAILY buspirone 7.5 mg tablet 7.5 mg PO BID folic acid 1 mg tablet 1 mg PO DAILY montelukast 10 mg tablet 10 mg PO DAILY ergocalciferol (vitamin D2) [Vitamin D2] 1,250 mcg (50,000 unit) capsule 1,250 mcg PO DAILY albuterol sulfate 90 mcg/actuation HFA aerosol inhaler 2 puff INHALATION Q4H PRN (Reason: sob) paroxetine HCl 40 mg tablet 40 mg PO DAILY ondansetron 4 mg tablet,disintegrating 4 mg PO Q6H PRN (Reason: Nausea) fluticasone propionate 50 mcg/actuation spray,suspension 50 mcg INTRANASAL DAILY tiotropium bromide [Spiriva with HandiHaler] 18 mcg capsule, w/inhalation device 1 cap INHALATION DAILY Xifaxan 550 mg tablet 550 mg PO Q12H gabapentin 800 mg tablet 800 mg PO TID PRN (Reason: .Neuropathy pain) olopatadine [Pataday Once Daily Relief] 0.2 % Drops 1 drp EACH EYE DAILY PRN (Reason: Dry Eyes) Discontinued albuterol sulfate 2.5 mg /3 mL (0.083 %) solution for nebulization 2.5 mg inhalation TID PRN (Reason: sob) Date of admission: 10/08/23 15:25 Primary Care Provider: Monse,Matthew Sandhu. Admitting Provider: Glenroy Colón Attending physician on admission: Glenroy Colón Condition: Improved
[2023-10-14] MEDS: CYCLOBENZAPRINE HCL 10 MG TABLET PO (16:38)
[2023-10-14 16:51] LABS: Glucose Point of Care 170 mg/dl (65-105)
[2023-10-23 02:23] LABS: Legionella pneumophila Ag Ur NOT DETECTED
== END 2023-10-14 18:10 | disposition home or self-care (01) | DRG 133 ==
LOC: ANHED 12:33 → ANH3MEDSUR 15:23 → ANH3MED 16:07 → ANHIMU 10-09 00:10 → ANH3MEDSUR 10-13
PROVIDERS: Student in an Organized Health Care Education/Training Program; Admitting Provider Hospitalist; Emergency Provider Emergency Medicine; PCP Family Medicine; Visit Provider Internal Medicine
DX: J96.01 Acute respiratory failure with hypoxia (principal); J18.9 Pneumonia, unspecified organism; J44.0 Chronic obstructive pulmonary disease with (acute) lower respiratory infection; J44.1 Chronic obstructive pulmonary disease with (acute) exacerbation; E87.1 Hypo-osmolality and hyponatremia; E11.9 Type 2 diabetes mellitus without complications; E78.5 Hyperlipidemia, unspecified; R40.0 Somnolence; T50.995A Adverse effect of other drugs, medicaments and biological substances, initial encounter; F41.8 Other specified anxiety disorders; I95.9 Hypotension, unspecified; K74.60 Unspecified cirrhosis of liver; E03.9 Hypothyroidism, unspecified; G47.33 Obstructive sleep apnea (adult) (pediatric); K21.9 Gastro-esophageal reflux disease without esophagitis; F17.210 Nicotine dependence, cigarettes, uncomplicated; Z79.4 Long term (current) use of insulin
CPT/HCPCS: 36415; 36600; 70450; 71045; 71046; 71275; 80053; 80307; 81001; 82140; 82375; 82570; 82805; 82948; 83050; 83690; 83735; 83880; 83930; 83935; 84156; 84300; 84484; 85025; 85027; 85610; 85730; 86738; 87040; 87449; 87637; 87641; 87899; 93005; 93306; 94002; 94618; 94640; 96361; 96374; 96375; 97110; 97116; 97161; 97165; 97530; 97535; 99285; A9270; G0378; J0456; J0696; J0780; J1200; J1650; J1815; J1940; J2919; J3475; J7030; J7512; Q9967